=== PATIENT | female | born 1960 | race Caucasian/White ===

== ENCOUNTER 2016-06-08 22:09 | Emergency (ER) | payer BC ==
[~2016-06-08] VITALS: Ht 157.5 cm; Wt 90.7 kg
[2016-06-08 22:13] VITALS: BP 131/71
--- NOTE | 2016-06-08 22:38 | PHYS DOC ---
Past Medical History Past Medical History: Hypertension Past Surgical History: Tonsillectomy Additional Past Surgical Histo: Gastric Bypass Alcohol Use: None Drug Use: None Adult General Chief Complaint Chief Complaint: LACERATION/AVULSION [facility] HPI Patient is a 55 year old female presents emergency department stating that her daughter and her were trying to open a wine bottle when the cork became stuck in bottle. She states that she was trying to use a knife to get the cork out when she stabbed herself in the left fifth finger. Patient is unsure when her last tetanus shot occurred. Patient denies any numbness or tingling into the tip of the finger. She has full range of motion noted of the finger. Review of Systems Review of Systems Constitutional: Denies fever or chills [] Eyes: Denies change in visual acuity, redness, or eye pain [] HENT: Denies nasal congestion or sore throat [] Respiratory: Denies cough or shortness of breath [] Cardiovascular: No additional information not addressed in HPI [] GI: Denies abdominal pain, nausea, vomiting, bloody stools or diarrhea [] : Denies dysuria or hematuria [] Musculoskeletal: Denies back pain or joint pain [] Integument: Denies rash or skin lesions. Patient complains of laceration to the left fifth finger. Neurologic: Denies headache, focal weakness or sensory changes [] Current Medications Current Medications Current Medications Medications (Trade) Dose Ordered Sig/Erik Start Time Stop Time Status Last Admin Dose Admin Diphtheria/ Tetanus/Acell Pertussis (Boostrix) 0.5 ml ONCE ONCE 06/08/16 23:00 06/08/16 23:01 06/08/16 22:43 0.5 ML Gelatin (Gelfoam Size 12-7mm) 1 each 1X ONCE 06/08/16 23:30 06/08/16 23:31 Lidocaine/Sodium Bicarbonate (Buffered Lidocaine 1%) 20 ml 1X ONCE 06/08/16 23:00 06/08/16 23:01 06/08/16 22:41 20 ML Allergies Allergies Allergies Coded Allergies Type Severity Reaction Last Updated Verified Penicillins Allergy Intermediate 06/08/16 Yes Physical Exam Physical Exam Constitutional: Well developed, well nourished, no acute distress, non-toxic appearance. [] HENT: Normocephalic, atraumatic, bilateral external ears normal, oropharynx moist, no oral exudates, nose normal. [] Eyes: PERRLA, EOMI, conjunctiva normal, no discharge. [] Neck: Normal range of motion, no tenderness, supple, no stridor. [] Cardiovascular:Heart rate regular rhythm Lungs & Thorax: No respiratory distress noted Skin: Warm, dry, no erythema, no rash. She was noted to have a 1 cm laceration at the DIP joint. Bleeding is currently controlled at this time. Patient is able to move the finger down and up without any difficulty. Cap refill brisk less than 2 seconds. Back: No tenderness Extremities: No tenderness, no cyanosis, no clubbing, ROM intact, no edema. [] Neurologic: Alert and oriented X 3, normal motor function, normal sensory function, no focal deficits noted. [] Psychologic: Affect normal, judgement normal, mood normal. [] Current Patient Data Vital Signs Vital Signs Date Time Temp Pulse Resp B/P Pulse Ox O2 Delivery O2 Flow Rate FiO2 06/08/16 22:13 97.7 69 16 100 Room Air 97.7 EKG EKG [] Radiology/Procedures Radiology/Procedures [] Course & Med Decision Making Course & Med Decision Making Pertinent Labs and Imaging studies reviewed. (See chart for details) 1% lidocaine was used to provide a digital block. Site was cleaned with Betadine. The area was sutured closed with 4-0 nylon with 3 interrupted sutures placed. She was provided with signs and symptoms to return back to emergency department. Patient was provided with signs and symptoms of infection: Redness, warmth, tenderness or any yellow/greenish transient become from the wound. Patient was instructed to have sutures out in the next 7-10 days. Patient agrees with discharge instructions treatment regimens and follow-up recommendations. She was instructed to keep the area clean and dry and clean the site with soap and water twice a day and apply antibiotic ointment. Dragon Disclaimer Dragon Disclaimer This electronic medical record was generated, in whole or in part, using a voice recognition dictation system. Departure Departure Impression: Primary Impression: Laceration of finger, left Disposition: 01 HOME, SELF-CARE Condition: STABLE Patient Instructions: Laceration Care, Adult, [id number], Sutured Wound Care , [id number] Additional Instructions: Activity as tolerated Tylenol or Ibuprofen for pain and discomfort Ice packs on 20 minutes off 20 minutes several times a day. Elevation as much as possible. Clean the site with soap and water twice a day and apply antibiotic ointment to the area. Watch for signs and symptoms of infection: Redness, warmth, tenderness or any yellow/greenish transient become from the site. If this occur follow-up to primary care physician immediately. Follow-up to primary care physician in the next 7-10 days for suture removal. Return back to emergency prior signs symptoms that become worse. Laceration/Wound Repair Laceration/Wound Repair : Wound Location: upper extremity Wound's Depth, Shape: superficial Wound Length (cm): 1 Wound Explored: clean Betadine Prep?: Yes Anesthesia: 1% Lidocaine Volume Anesthetic (ccs): 4 Wound Debrided: minimal Wound Repaired With: sutures Suture Size/Type: 4:0 Number of Sutures: 3 Progress 4 mL of 1% lidocaine was used to inject the finger for digital block. With Betadine. 3 interrupted 4-0 nylon sutures was placed. Patient continued to have some bleeding noted along the suture line. Patient had Gelfoam placed in the area to help with bleeding. Dressing applied by nursing staff. FRANCES CEJA SHINGLE CARRIER Jun 08, 2016 22:38
[2016-06-08] MEDS ORDERED: DIPHTH,PERTUSS(ACELL),TET TOX 0.5 ML DISP.SYRIN. VAX IM ONE (23:00)
[2016-06-08] MEDS ORDERED: LIDOCAINE 1% / SOD BICARB 8.4% 20 ML VIAL. IJ ONE (23:00)
[2016-06-08] MEDS ORDERED: GELATIN SPONGE SIZE 12-7MM SPONGE. TP ONE (23:30)
== END 2016-06-08 23:13 | disposition home or self-care (01) ==
LOC: ER 22:09
DX: S61.217A Laceration without foreign body of left little finger without damage to nail, initial encounter (principal); I10 Essential (primary) hypertension; Z88.0 Allergy status to penicillin; W22.8XXA Striking against or struck by other objects, initial encounter; Y93.89 Activity, other specified; Y92.89 Other specified places as the place of occurrence of the external cause; Y99.8 Other external cause status
CPT/HCPCS: 12001; 90471; 90715; 99283-25

== ENCOUNTER 2017-09-21 13:09 | Inpatient (IN) | payer BC, MEDICARE, OTHER ==
[~2017-09-21] VITALS: Ht 157.5 cm; Wt 100.2 kg
[2017-09-21 13:44] LABS: BILIRUBIN,URINE MODERATE (NEG); CLARITY,URINE CLOUDY; NITRITE,URINE NEGATIVE (NEG); PROTEIN,URINE 100 mg/dL (NEG-TRACE)
[2017-09-21] MEDS ORDERED: CONTRAST GIVEN. MC PRN (13:45)
[2017-09-21] MEDS ORDERED: IV NORMAL SALINE 1000ML BAG 1,000 ML IV ONE ×4 (13:45→16:15)
[2017-09-21] MEDS ORDERED: ONDANSETRON PF 4 MG/2 ML VIAL. IV ONE (13:45)
[2017-09-21] MEDS ORDERED: IOHEXOL 300 MG/ML 100ML VIAL. IV ONE (13:45)
[2017-09-21] MEDS ORDERED: PANTOPRAZOLE IV PUSH 40 MG VIAL. IVP ONE (13:45)
[2017-09-21] MEDS ORDERED: fentaNYL PF VIAL 100 MCG/2 ML VIAL IV ONE (13:45)
--- NOTE | 2017-09-21 13:46 | PHYS DOC ---
Past Medical History Past Medical History: Hypertension Past Surgical History: Tonsillectomy Additional Past Surgical Histo: Gastric Bypass Alcohol Use: None Drug Use: None Adult General Chief Complaint Chief Complaint: ABDOMINAL PAIN HPI HPI Patient is a 56 year old female with history of hypertension, gastric bypass, who presents today complaining of moderate right sided abdominal pain that has been going on intermittently for the last 3 days. Patient states she also has nausea but no vomiting. Denies diarrhea. She states she has tried taking hydrocodone with no relief. She states she went to the doctor's office today and was sent to the emergency room for workup and IV fluids. PCP Dr. Gilmore Review of Systems Review of Systems Constitutional: Denies fever or chills [] Eyes: Denies change in visual acuity, redness, or eye pain [] HENT: Denies nasal congestion or sore throat [] Respiratory: Denies cough or shortness of breath [] Cardiovascular: No additional information not addressed in HPI [] GI: Reports right sided abdominal pain, with nausea denies vomiting, bloody stools or diarrhea [] : Denies dysuria or hematuria [] Musculoskeletal: Denies back pain or joint pain [] Integument: Denies rash or skin lesions [] Neurologic: Denies headache, focal weakness or sensory changes [] All other systems were reviewed and found to be within normal limits, except as documented in this note. Current Medications Current Medications Current Medications Medications (Trade) Dose Ordered Sig/Erik Start Time Stop Time Status Last Admin Dose Admin Acetaminophen (Tylenol) 1,000 mg 1X ONCE 09/21/17 14:00 09/21/17 14:01 DC 09/21/17 14:34 1,000 MG Clindamycin Phosphate 50 ml @ 100 mls/hr 1X ONCE 09/21/17 15:30 09/21/17 15:59 DC 09/21/17 16:18 100 MLS/HR Fentanyl Citrate (Fentanyl 2ml Vial) 50 mcg 1X ONCE 09/21/17 13:45 09/21/17 13:46 DC 09/21/17 14:34 50 MCG Info (CONTRAST GIVEN -- Rx MONITORING) 1 each PRN DAILY PRN 09/21/17 13:45 09/23/17 13:44 Iohexol (Omnipaque 300 Mg/ml) 75 ml 1X ONCE 09/21/17 13:45 09/21/17 13:46 DC Ondansetron HCl (Zofran) 4 mg 1X ONCE 09/21/17 13:45 09/21/17 13:46 DC 09/21/17 14:34 4 MG Pantoprazole Sodium (PROTONIX VIAL for IV PUSH) 40 mg 1X ONCE 09/21/17 13:45 09/21/17 13:46 DC 09/21/17 13:45 40 MG Sodium Chloride 1,000 ml @ 1,000 mls/hr 1X ONCE 09/21/17 14:15 09/21/17 15:14 DC 09/21/17 16:18 1,000 MLS/HR Vancomycin HCl (Vanco Per Pharmacy) 1 each PRN DAILY PRN 09/21/17 15:30 UNV Vancomycin HCl 2 gm/Sodium Chloride 500 ml @ 250 mls/hr 1X ONCE 09/21/17 15:30 09/21/17 17:29 Allergies Allergies Allergies Coded Allergies Type Severity Reaction Last Updated Verified Penicillins Allergy Intermediate 06/08/16 Yes Physical Exam Physical Exam Constitutional: Well developed, well nourished, no acute distress, non-toxic appearance. [] HENT: Normocephalic, atraumatic, bilateral external ears normal, oropharynx moist, no oral exudates, nose normal. [] Eyes: PERRLA, EOMI, conjunctiva normal, no discharge. [] Neck: Normal range of motion, no tenderness, supple, no stridor. [] Cardiovascular:Heart rate regular rhythm, no murmur [] Lungs & Thorax: Bilateral breath sounds clear to auscultation [] Abdomen: Obese abdomen. Bowel sounds normal, soft, moderate RUQ tenderness with positive Ospina's sign, tenderness to the mid and right lower quadrant. Negative psoas sign, negative obturator sign, negative Rovsing sign, no masses, no pulsatile masses. No rebound tenderness Skin: Warm, dry, no erythema, no rash. [] Back: No tenderness, no CVA tenderness. [] Extremities: No tenderness, no cyanosis, no clubbing, ROM intact, no edema. [] Neurologic: Alert and oriented X 3, normal motor function, normal sensory function, no focal deficits noted. [] Psychologic: Affect normal, judgement normal, mood normal. [] Current Patient Data Vital Signs Vital Signs Date Time Temp Pulse Resp B/P (MAP) Pulse Ox O2 Delivery O2 Flow Rate FiO2 09/21/17 13:20 99.4 122 20 127/79 (95) 96 Room Air 99.4 Lab Values Laboratory Tests Test 09/21/17 13:10 09/21/17 13:30 Urine Collection Type Unknown Urine Color Dk yellow Urine Clarity Cloudy Urine pH 5.0 Urine Specific Buhler >=1.030 Urine Protein 100 mg/dL (NEG-TRACE) Urine Glucose (UA) >=1000 mg/dL (NEG) Urine Ketones (Stick) Trace mg/dL (NEG) Urine Blood Negative (NEG) Urine Nitrite Negative (NEG) Urine Bilirubin Moderate (NEG) Urine Urobilinogen Dipstick 1.0 mg/dL (0.2 mg/dL) Urine Leukocyte Esterase Trace (NEG) Urine RBC Occ /HPF (0-2) Urine WBC 1-4 /HPF (0-4) Urine Squamous Epithelial Cells Many /LPF Urine Bacteria Many /HPF (0-FEW) White Blood Count 23.1 x10^3/uL (4.0-11.0) H Red Blood Count 4.85 x10^6/uL (3.50-5.40) Hemoglobin 14.9 g/dL (12.0-15.5) Hematocrit 43.4 % (36.0-47.0) Mean Corpuscular Volume 89 fL (79-100) Mean Corpuscular Hemoglobin 31 pg (25-35) Mean Corpuscular Hemoglobin Concent 34 g/dL (31-37) Red Cell Distribution Width 13.0 % (11.5-14.5) Platelet Count 185 x10^3/uL (140-400) Neutrophils (%) (Auto) 92 % (31-73) H Lymphocytes (%) (Auto) 2 % (24-48) L Monocytes (%) (Auto) 6 % (0-9) Eosinophils (%) (Auto) 0 % (0-3) Basophils (%) (Auto) 0 % (0-3) Neutrophils # (Auto) 21.3 x10^3uL (1.8-7.7) H Lymphocytes # (Auto) 0.5 x10^3/uL (1.0-4.8) L Monocytes # (Auto) 1.3 x10^3/uL (0.0-1.1) H Eosinophils # (Auto) 0.0 x10^3/uL (0.0-0.7) Basophils # (Auto) 0.0 x10^3/uL (0.0-0.2) Segmented Neutrophils % 85 % (35-66) H Band Neutrophils % 11 % (0-9) H Lymphocytes % 1 % (24-48) L Monocytes % 3 % (0-10) Toxic Granulation Slight Platelet Estimate Adequate (ADEQUATE) Sodium Level 125 mmol/L (136-145) L Potassium Level 4.3 mmol/L (3.5-5.1) Chloride Level 91 mmol/L (98-107) L Carbon Dioxide Level 25 mmol/L (21-32) Anion Gap 9 (6-14) Blood Urea Nitrogen 36 mg/dL (7-20) H Creatinine 1.9 mg/dL (0.6-1.0) H Estimated GFR (Cockcroft-Gault) 27.3 BUN/Creatinine Ratio 19 (6-20) Glucose Level 422 mg/dL (70-99) H Calcium Level 9.9 mg/dL (8.5-10.1) Total Bilirubin 2.9 mg/dL (0.2-1.0) H Aspartate Amino Transferase (AST) 21 U/L (15-37) Alanine Aminotransferase (ALT) 33 U/L (14-59) Alkaline Phosphatase 181 U/L (46-116) H Total Protein 7.6 g/dL (6.4-8.2) Albumin 3.0 g/dL (3.4-5.0) L Albumin/Globulin Ratio 0.7 (1.0-1.7) L Lipase 95 U/L (73-393) Ethyl Alcohol Level < 10 mg/dL (0-10) Laboratory Tests 09/21/17 13:30 Laboratory Tests 09/21/17 13:30 EKG EKG [] Radiology/Procedures Radiology/Procedures []PROCEDURE: CT ABD PELV W/ IV CONTRST ONLY CT of the abdomen and pelvis with contrast, 09/21/2017: HISTORY: Lower abdominal pain with nausea Multidetector CT imaging was performed following an IV bolus injection of iodinated contrast material. No oral contrast material was administered for this study. The gallbladder is distended. It contains a small amount of mildly radiopaque material. There is extensive edematous thickening of its tidwell. There is moderate streaky pericholecystic edema. The appearance is that of acute cholecystitis. No hepatic abnormality is seen. The pancreas is unremarkable. The spleen is at the upper limits of normal in size. There is bilateral renal cortical scarring. The kidneys show no evidence of obstruction. No adrenal abnormality is detected. There is minimal aortoiliac calcific plaquing. No abdominal or pelvic adenopathy is seen. Diffuse bladder wall thickening is probably related to its collapsed state. Cystitis cannot be excluded. The bowel loops are not dilated. The appendix is unremarkable. There are sutures related to the stomach and proximal spinal bowel compatible with the given history of gastric bypass surgery. No free air or free fluid is evident in the abdomen or pelvis. IMPRESSION: 1. Inflamed gallbladder containing radiopaque material with extensive pericholecystic edema compatible with acute cholecystitis. 2. Diffuse bladder wall thickening. 3. Changes of previous gastric bypass surgery. PQRS Compliance Statement: One or more of the following individualized dose reduction techniques were utilized for this examination: 1. Automated exposure control 2. Adjustment of the mA and/or kV according to patient size 3. Use of iterative reconstruction technique Electronically signed by: Kierra Martin MD (09/21/2017 2:43 PM) [facility] DICTATED and SIGNED BY: KIERRA MARTIN MD DATE: 09/21/17 1430 Course & Med Decision Making Course & Med Decision Making Pertinent Labs and Imaging studies reviewed. (See chart for details) This is a 56-year-old female patient presenting to the ED today with a right sided abdominal pain that has been going on for 3 days. Also complaining of nausea. Vitals on arrival to the ED temperature was 99.4, heart rate 122, respiration 20 room air, O2 sats 96% on room air, blood pressure 127/96. CBC with a WBC of 23.1 and a left shift, sodium 125, creatinine 1.9, BUN 36, glucose 422, anion gap is normal. CT of the abd and pelvic was noted for cholecystitis. Patient's workup is heading toward sepsis though we are still waiting for the rest of the lab work. Spoke with Dr. Huang who accepted patient for general surgery. 15:[address] Meeks who accepted patient for admission. Routine consult placed for nephrology due to the hyponatremia Abdirahman Disclaimer Abdirahman Disclaimer This electronic medical record was generated, in whole or in part, using a voice recognition dictation system. Departure Departure Impression: Primary Impression: Cholecystitis Additional Impressions: Sepsis Hyponatremia Disposition: 09 ADMITTED INPATIENT Condition: STABLE Referrals: JIM GILMORE (PCP) Problem Qualifiers Additional Impressions: Sepsis Sepsis type: sepsis due to unspecified organism Qualified Codes: A41.9 - Sepsis, unspecified organism MARISELA OROZCO TIE LOADER Sep 21, 2017 13:46
[2017-09-21 13:50] LABS: BASO % 0 % (0-3); EOS % 0 % (0-3); HEMATOCRIT 43.4 % (36.0-47.0); HEMOGLOBIN 14.9 g/dL (12.0-15.5); LYMPH # 0.5 x10^3/uL (1.0-4.8); LYMPH % 2 % (24-48); MEAN CORPUSCULAR HEMOGLOBIN 31 pg (25-35); MEAN CORPUSCULAR HGB CONC 34 g/dL (31-37); MEAN CORPUSCULAR VOLUME 89 fL (79-100); MONO # 1.3 x10^3/uL (0.0-1.1); MONO % 6 % (0-9); NEUT # 21.3 x10^3uL (1.8-7.7); NEUT % 92 % (31-73); PLATELET COUNT 185 x10^3/uL (140-400); RED BLOOD COUNT 4.85 x10^6/uL (3.50-5.40); WHITE BLOOD COUNT 23.1 x10^3/uL (4.0-11.0)
[2017-09-21 13:57] LABS: COLOR,URINE DK YELLOW
[2017-09-21 13:59] LABS: BACTERIA,URINE MANY /HPF (0-FEW); RBC,URINE OCC /HPF (0-2)
[2017-09-21 14:00] LABS: CALCIUM 9.9 mg/dL (8.5-10.1); CREATININE 1.9 mg/dL (0.6-1.0); GFR 27.3; POTASSIUM 4.3 mmol/L (3.5-5.1)
[2017-09-21 14:00] LABS: SQUAMOUS EPITHELIAL CELL,UR MANY /LPF
[2017-09-21] MEDS ORDERED: ACETAMINOPHEN 500 MG TABLET PO ONE (14:00)
[2017-09-21 14:06] LABS: ALBUMIN/GLOBULIN RATIO 0.7 (1.0-1.7); TOTAL BILIRUBIN 2.9 mg/dL (0.2-1.0); TOTAL PROTEIN 7.6 g/dL (6.4-8.2)
--- NOTE | 2017-09-21 14:46 | RAD ---
CT of the abdomen and pelvis with contrast, 09/21/2017: HISTORY: Lower abdominal pain with nausea Multidetector CT imaging was performed following an IV bolus injection of iodinated contrast material. No oral contrast material was administered for this study. The gallbladder is distended. It contains a small amount of mildly radiopaque material. There is extensive edematous thickening of its tidwell. There is moderate streaky pericholecystic edema. The appearance is that of acute cholecystitis. No hepatic abnormality is seen. The pancreas is unremarkable. The spleen is at the upper limits of normal in size. There is bilateral renal cortical scarring. The kidneys show no evidence of obstruction. No adrenal abnormality is detected. There is minimal aortoiliac calcific plaquing. No abdominal or pelvic adenopathy is seen. Diffuse bladder wall thickening is probably related to its collapsed state. Cystitis cannot be excluded. The bowel loops are not dilated. The appendix is unremarkable. There are sutures related to the stomach and proximal spinal bowel compatible with the given history of gastric bypass surgery. No free air or free fluid is evident in the abdomen or pelvis. IMPRESSION: 1. Inflamed gallbladder containing radiopaque material with extensive pericholecystic edema compatible with acute cholecystitis. 2. Diffuse bladder wall thickening. 3. Changes of previous gastric bypass surgery. PQRS Compliance Statement: One or more of the following individualized dose reduction techniques were utilized for this examination: 1. Automated exposure control 2. Adjustment of the mA and/or kV according to patient size 3. Use of iterative reconstruction technique Electronically signed by: Freddie Martin MD (09/21/2017 2:43 PM) [facility]
[2017-09-21 14:49] LABS: % BANDS 11 % (0-9); % LYMPHS 1 % (24-48); % MONOS 3 % (0-10); % SEGS 85 % (35-66)
[2017-09-21 14:51] LABS: PLT ESTIMATE ADEQUATE (ADEQUATE)
[2017-09-21 14:55] LABS: TOXIC GRANULATION SLIGHT
[2017-09-21] MEDS ORDERED: VANCOMYCIN 2 GM in IV NORMAL SALINE 500ML BAG 500 ML IV ONE (15:30)
[2017-09-21] MEDS ORDERED: CLINDAMYCIN 900MG PREMIX 50 ML IV ONE (15:30)
[2017-09-21] MEDS ORDERED: ONDANSETRON PF 4 MG/2 ML VIAL. IV PRN (16:15)
[2017-09-21] MEDS ORDERED: ACETAMINOPHEN 325 MG TABLET. PO PRN (16:15)
[2017-09-21] MEDS: VANCOMYCIN PER PHARMACY MC PRN (16:37)
[2017-09-21] MEDS: fentaNYL PF VIAL 100 MCG/2 ML VIAL IV PRN ×2 (16:51→21:22)
[2017-09-21 17:25] VITALS: BP 110/76
[2017-09-21] MEDS ORDERED: INSULIN LISPRO 300 UNITS/3 ML INSULN.PEN. SQ ONE (17:30)
[2017-09-21] MEDS ORDERED: DEXTROSE 50% 25 GM / 50ML DISP.SYRIN. IV PRN (17:30)
--- NOTE | 2017-09-21 17:40 | PDOC1 ---
History and Physical Date of Admission Date of Admission DATE: 09/21/17 TIME: 17:37 History of Present Illness History of Present Illness Ms. Etienne is a 56 year old female with history of hypertension, gastric bypass, who presents today complaining of moderate right sided abdominal pain that has been going on intermittently for the last 3 days. Patient states she also has nausea but no vomiting. Denies diarrhea. She states she has tried taking hydrocodone with no relief. She states she went to the doctor's office today and was sent to the emergency room for workup and IV fluids. she is s/p gastric bypass at [facility] and has lost 110 lbs, was Dm2 w. 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 [employer] Past Medical History Cardiovascular: No pertinent hx Infectious disease: No pertinent hx ENT: No pertinent hx Endocrine: Diabetes Past Surgical History Past Surgical History: Other (gastric bypass) Family History Family History: Adopted Social History Smoke: No ALCOHOL: none Drugs: None Current Problem List Problem List Problems Medical Problems: (1) Cholecystitis Status: Acute (2) Hyponatremia Status: Acute (3) Sepsis Status: Acute Current Medications Current Medications Current Medications Fentanyl Citrate (Fentanyl 2ml Vial) 50 mcg 1X ONCE IV Last administered on 12/29at 14:34; Start 09/21/17 at 13:45; Stop 09/21/17 at 13:46; Status DC Pantoprazole Sodium (PROTONIX VIAL for IV PUSH) 40 mg 1X ONCE IVP Last administered on 09/21/17at 13:45; Start 09/21/17 at 13:45; Stop 09/21/17 at 13:46 ; Status DC Ondansetron HCl (Zofran) 4 mg 1X ONCE IV Last administered on 09/21/17at 14:34 ; Start 09/21/17 at 13:45; Stop 09/21/17 at 13:46; Status DC Sodium Chloride 1,000 ml @ 1,000 mls/hr 1X ONCE IV Last administered on at 14:33; Start 09/21/17 at 13:45; Stop 09/21/17 at 14:44; Status DC Iohexol (Omnipaque 300 Mg/ml) 75 ml 1X ONCE IV Last administered on 09/21/17at 13:45; Start 09/21/17 at 13:45; Stop 09/21/17 at 13:46; Status DC Info (CONTRAST GIVEN -- Rx MONITORING) 1 each PRN DAILY PRN MC SEE COMMENTS; Start 09/21/17 at 13:45; Stop 09/23/17 at 13:44 Sodium Chloride 1,000 ml @ 1,000 mls/hr 1X ONCE IV Last administered on at 14:33; Start 09/21/17 at 14:00; Stop 09/21/17 at 14:59; Status DC Acetaminophen (Tylenol) 1,000 mg 1X ONCE PO Last administered on 09/21/17at 14: 34; Start 09/21/17 at 14:00; Stop 09/21/17 at 14:01; Status DC Sodium Chloride 1,000 ml @ 1,000 mls/hr 1X ONCE IV Last administered on at 16:18; Start 09/21/17 at 14:15; Stop 09/21/17 at 15:14; Status DC Clindamycin Phosphate 50 ml @ 100 mls/hr Q8HRS IV ; Start 09/21/17 at 22:00 Clindamycin Phosphate 50 ml @ 100 mls/hr 1X ONCE IV Last administered on 09/21at 16:18; Start 09/21/17 at 15:30; Stop 09/21/17 at 15:59; Status DC Vancomycin HCl (Vanco Per Pharmacy) 1 each PRN DAILY PRN MC SEE COMMENTS Last administered on 09/21/17at 16:37; Start 09/21/17 at 15:30 Vancomycin HCl 2 gm/Sodium Chloride 500 ml @ 250 mls/hr 1X ONCE IV Last administered on 09/21/17at 17:21; Start 09/21/17 at 15:30; Stop 09/21/17 at 17:29 Ondansetron HCl (Zofran) 4 mg PRN Q8HRS PRN IV NAUSEA/VOMITING; Start 09/21/17 at 16:15; Stop 09/22/17 at 16:14 Fentanyl Citrate (Fentanyl 2ml Vial) 50 mcg PRN Q2HR PRN IV PAIN Last administered on 09/21/17at 16:51; Start 09/21/17 at 16:15; Stop 09/22/17 at 16:14 Acetaminophen (Tylenol) 650 mg PRN Q4HRS PRN PO FEVER; Start 09/21/17 at 16:15 ; Stop 09/22/17 at 16:14 Sodium Chloride 1,000 ml @ 125 mls/hr 1X ONCE IV ; Start 09/21/17 at 16:15; Stop 09/22/17 at 00:14 Vancomycin HCl 1.5 gm/Sodium Chloride 500 ml @ 250 mls/hr Q24H IV ; Start 09/22 at 18:00 Vancomycin HCl (Vancomycin Trough Level) 1 each 1X ONCE MC ; Start 09/23/17 at 17:30; Stop 09/23/17 at 17:31 Insulin Human Lispro (HumaLOG) 0-9 UNITS TIDWMEALS SQ ; Start 09/22/17 at 08:00 ; Status UNV Dextrose (Dextrose 50%-Water Syringe) 12.5 gm PRN Q15MIN PRN IV SEE COMMENTS; Start 09/21/17 at 17:30; Status UNV Insulin Glargine (Lantus) 20 units QHS SQ ; Start 09/21/17 at 21:00; Status UNV Insulin Human Lispro (HumaLOG) 10 units TIDWMEALS SQ ; Start 09/22/17 at 08:00; Status UNV Allergies Allergies: Coded Allergies: No Known Drug Allergies (Unverified , 09/21/17) ROS General: YES: Chills, Night Sweats, Fatigue PSYCHOLOGICAL ROS: No: Anxiety, Behavioral Disorder, Concentration difficultie , Decreased libido, Depression, Disorientation, Hallucinations, Hostility, Irritablity, Memory difficulties, Mood Swings, Obsessive thoughts, Physical abuse, Sexual abuse, Sleep disturbances, Suicidal ideation, Other Eyes: No Blurry vision, No Decreased vision, No Double vision, No Dry eyes, No Excessive tearing, No Eye Pain, No Itchy Eyes, No Loss of vision, No Photophobia , No Scotomata, No Uses contacts, No Uses glasses, No Other HEENT: No: Heacaches, Visual Changes, Hearing change, Nasal congestion, Nasal discharge, Oral lesions, Sinus pain, Sore Throat, Epistaxis, Sneezing, Snoring, Tinnitus, Vertigo, Vocal changes, Other ENDOCRINE: No: Breast Changes, Galactorrhea, Hair Pattern Changes, Hot Flashes , Malaise/lethargy, Mood Swings, Palpitations, Polydipsia/polyuria, Skin Changes , Temperature Intolerance, Unexpected Weight Changes, Other Respiratory: No: Cough, Hemoptysis, Orthopnea, Pleuritic Pain, Shortness of breath, SOB with excertion, Sputum Changes, Stridor, Tachypnea, Wheezing, Other Gastrointestinal: Yes Nausea, Yes Abdominal Pain, Yes Diarrhea, Yes Other; No Vomiting, No Constipation, No Melena, No Hematochezia Genitourinary: No Dysuria, No Frequency, No Incontinence, No Hematuria, No Retention, No Discharge, No Urgency, No Pain, No Flank Pain, No Other, No , No , No , No , No , No , No Musculoskeletal: Yes Joint Pain, Yes Joint Stiffness Neurological: No Behavorial Changes, No Bowel/Bladder ControlChng, No Confusion , No Dizziness, No Gait Disturbance, No Headaches, No Impaired Coord/balance, No Memory Loss, No Numbness/Tingling, No Seizures, No Speech Problems, No Tremors, No Visual Changes, No Weakness, No Other Skin: Yes Dry Skin; No Eczema, No Hair Changes, No Lumps, No Mole Changes, No Mottling, No Nail Changes, No Pruritus, No Rash, No Skin Lesion Changes, No Other, No Acne Vitals Vitals Vital Signs Date Time Temp Pulse Resp B/P (MAP) Pulse Ox O2 Delivery O2 Flow Rate FiO2 09/21/17 13:20 99.4 122 20 127/79 (95) 96 Room Air 99.4 Labs Labs Laboratory Tests Test 09/21/17 13:10 09/21/17 13:30 09/21/17 16:55 Urine Collection Type Unknown Urine Color Dk yellow Urine Clarity Cloudy Urine pH 5.0 Urine Specific [place] >=1.030 Urine Protein 100 mg/dL (NEG-TRACE) Urine Glucose (UA) >=1000 mg/dL (NEG) Urine Ketones (Stick) Trace mg/dL (NEG) Urine Blood Negative (NEG) Urine Nitrite Negative (NEG) Urine Bilirubin Moderate (NEG) Urine Urobilinogen Dipstick 1.0 mg/dL (0.2 mg/dL) Urine Leukocyte Esterase Trace (NEG) Urine RBC Occ /HPF (0-2) Urine WBC 1-4 /HPF (0-4) Urine Squamous Epithelial Cells Many /LPF Urine Bacteria Many /HPF (0-FEW) White Blood Count 23.1 x10^3/uL (4.0-11.0) Red Blood Count 4.85 x10^6/uL (3.50-5.40) Hemoglobin 14.9 g/dL (12.0-15.5) Hematocrit 43.4 % (36.0-47.0) Mean Corpuscular Volume 89 fL (79-100) Mean Corpuscular Hemoglobin 31 pg (25-35) Mean Corpuscular Hemoglobin Concent 34 g/dL (31-37) Red Cell Distribution Width 13.0 % (11.5-14.5) Platelet Count 185 x10^3/uL (140-400) Neutrophils (%) (Auto) 92 % (31-73) Lymphocytes (%) (Auto) 2 % (24-48) Monocytes (%) (Auto) 6 % (0-9) Eosinophils (%) (Auto) 0 % (0-3) Basophils (%) (Auto) 0 % (0-3) Neutrophils # (Auto) 21.3 x10^3uL (1.8-7.7) Lymphocytes # (Auto) 0.5 x10^3/uL (1.0-4.8) Monocytes # (Auto) 1.3 x10^3/uL (0.0-1.1) Eosinophils # (Auto) 0.0 x10^3/uL (0.0-0.7) Basophils # (Auto) 0.0 x10^3/uL (0.0-0.2) Segmented Neutrophils % 85 % (35-66) Band Neutrophils % 11 % (0-9) Lymphocytes % 1 % (24-48) Monocytes % 3 % (0-10) Toxic Granulation Slight Platelet Estimate Adequate (ADEQUATE) Sodium Level 125 mmol/L (136-145) Potassium Level 4.3 mmol/L (3.5-5.1) Chloride Level 91 mmol/L (98-107) Carbon Dioxide Level 25 mmol/L (21-32) Anion Gap 9 (6-14) Blood Urea Nitrogen 36 mg/dL (7-20) Creatinine 1.9 mg/dL (0.6-1.0) Estimated GFR (Cockcroft-Gault) 27.3 BUN/Creatinine Ratio 19 (6-20) Glucose Level 422 mg/dL (70-99) Calcium Level 9.9 mg/dL (8.5-10.1) Total Bilirubin 2.9 mg/dL (0.2-1.0) Aspartate Amino Transf (AST/SGOT) 21 U/L (15-37) Alanine Aminotransferase (ALT/SGPT) 33 U/L (14-59) Alkaline Phosphatase 181 U/L (46-116) Total Protein 7.6 g/dL (6.4-8.2) Albumin 3.0 g/dL (3.4-5.0) Albumin/Globulin Ratio 0.7 (1.0-1.7) Lipase 95 U/L (73-393) Ethyl Alcohol Level < 10 mg/dL (0-10) Lactic Acid Level 1.5 mmol/L (0.4-2.0) Laboratory Tests Test 09/21/17 13:10 09/21/17 13:30 09/21/17 16:55 Urine Collection Type Unknown Urine Color Dk yellow Urine Clarity Cloudy Urine pH 5.0 Urine Specific [place] >=1.030 Urine Protein 100 mg/dL (NEG-TRACE) Urine Glucose (UA) >=1000 mg/dL (NEG) Urine Ketones (Stick) Trace mg/dL (NEG) Urine Blood Negative (NEG) Urine Nitrite Negative (NEG) Urine Bilirubin Moderate (NEG) Urine Urobilinogen Dipstick 1.0 mg/dL (0.2 mg/dL) Urine Leukocyte Esterase Trace (NEG) Urine RBC Occ /HPF (0-2) Urine WBC 1-4 /HPF (0-4) Urine Squamous Epithelial Cells Many /LPF Urine Bacteria Many /HPF (0-FEW) White Blood Count 23.1 x10^3/uL (4.0-11.0) Red Blood Count 4.85 x10^6/uL (3.50-5.40) Hemoglobin 14.9 g/dL (12.0-15.5) Hematocrit 43.4 % (36.0-47.0) Mean Corpuscular Volume 89 fL (79-100) Mean Corpuscular Hemoglobin 31 pg (25-35) Mean Corpuscular Hemoglobin Concent 34 g/dL (31-37) Red Cell Distribution Width 13.0 % (11.5-14.5) Platelet Count 185 x10^3/uL (140-400) Neutrophils (%) (Auto) 92 % (31-73) Lymphocytes (%) (Auto) 2 % (24-48) Monocytes (%) (Auto) 6 % (0-9) Eosinophils (%) (Auto) 0 % (0-3) Basophils (%) (Auto) 0 % (0-3) Neutrophils # (Auto) 21.3 x10^3uL (1.8-7.7) Lymphocytes # (Auto) 0.5 x10^3/uL (1.0-4.8) Monocytes # (Auto) 1.3 x10^3/uL (0.0-1.1) Eosinophils # (Auto) 0.0 x10^3/uL (0.0-0.7) Basophils # (Auto) 0.0 x10^3/uL (0.0-0.2) Segmented Neutrophils % 85 % (35-66) Band Neutrophils % 11 % (0-9) Lymphocytes % 1 % (24-48) Monocytes % 3 % (0-10) Toxic Granulation Slight Platelet Estimate Adequate (ADEQUATE) Sodium Level 125 mmol/L (136-145) Potassium Level 4.3 mmol/L (3.5-5.1) Chloride Level 91 mmol/L (98-107) Carbon Dioxide Level 25 mmol/L (21-32) Anion Gap 9 (6-14) Blood Urea Nitrogen 36 mg/dL (7-20) Creatinine 1.9 mg/dL (0.6-1.0) Estimated GFR (Cockcroft-Gault) 27.3 BUN/Creatinine Ratio 19 (6-20) Glucose Level 422 mg/dL (70-99) Calcium Level 9.9 mg/dL (8.5-10.1) Total Bilirubin 2.9 mg/dL (0.2-1.0) Aspartate Amino Transf (AST/SGOT) 21 U/L (15-37) Alanine Aminotransferase (ALT/SGPT) 33 U/L (14-59) Alkaline Phosphatase 181 U/L (46-116) Total Protein 7.6 g/dL (6.4-8.2) Albumin 3.0 g/dL (3.4-5.0) Albumin/Globulin Ratio 0.7 (1.0-1.7) Lipase 95 U/L (73-393) Ethyl Alcohol Level < 10 mg/dL (0-10) Lactic Acid Level 1.5 mmol/L (0.4-2.0) VTE Prophylaxis Ordered VTE Prophylaxis Devices: Yes VTE Pharmacological Prophylaxi: No Assessment/Plan Assessment/Plan Acute abd pain cholangitis, acute cholecystis sepsis obesity BMI 38 vasomotor nephropathy moderate malnutrition hyperbili, admit LANETTE BOLDEN MD Sep 21, 2017 17:40
[2017-09-21] MEDS ORDERED: PIP/TAZO PER PHARMACY MC PRN (17:45)
[2017-09-21] MEDS: INSULIN LISPRO 300 UNITS/3 ML INSULN.PEN. SQ SCH (18:05)
[2017-09-21] MEDS ORDERED: SPIR50TA4 PO (18:31)
[2017-09-21] MEDS ORDERED: LEXAPRO20 MG PO (18:31)
[2017-09-21] MEDS ORDERED: CARV3.122 PO (18:31)
[2017-09-21] MEDS ORDERED: MULT1TAB52 PO (18:31)
[2017-09-21 19:00] VITALS: BP 105/70
[2017-09-21] MEDS: INSULIN GLARGINE 300 UNITS/3 ML INSULN.PEN. SQ SCH (21:00)
[2017-09-21] MEDS: PIPERACILLIN/TAZOBACTAM 2.25 GM in IV NORMAL SALINE 50ML 50 ML IV SCH (21:21)
[2017-09-21] MEDS ORDERED: CLINDAMYCIN 900MG PREMIX 50 ML IV SCH (22:00)
[2017-09-21 23:00] VITALS: BP 106/62
[2017-09-22] VITALS (12 sets, daily range): BP systolic 96–124; BP diastolic 51–72
[2017-09-22] MEDS: PIPERACILLIN/TAZOBACTAM 2.25 GM in IV NORMAL SALINE 50ML 50 ML IV SCH ×4 (01:06→17:30)
[2017-09-22] MEDS: fentaNYL PF VIAL 100 MCG/2 ML VIAL IV PRN ×3 (04:00→15:47)
[2017-09-22 05:23] LABS: BASO % 0 % (0-3); EOS % 0 % (0-3); HEMATOCRIT 35.5 % (36.0-47.0); HEMOGLOBIN 12.2 g/dL (12.0-15.5); LYMPH # 0.4 x10^3/uL (1.0-4.8); LYMPH % 3 % (24-48); MEAN CORPUSCULAR HEMOGLOBIN 31 pg (25-35); MEAN CORPUSCULAR HGB CONC 34 g/dL (31-37); MEAN CORPUSCULAR VOLUME 89 fL (79-100); MONO # 1.1 x10^3/uL (0.0-1.1); MONO % 8 % (0-9); NEUT # 12.5 x10^3uL (1.8-7.7); NEUT % 90 % (31-73); PLATELET COUNT 128 x10^3/uL (140-400); RED BLOOD COUNT 3.99 x10^6/uL (3.50-5.40); RED CELL DISTRIBUTION WIDTH 13.2 % (11.5-14.5)
[2017-09-22 05:48] LABS: ALBUMIN 2.1 g/dL (3.4-5.0); ALBUMIN/GLOBULIN RATIO 0.6 (1.0-1.7); CALCIUM 8.5 mg/dL (8.5-10.1); CREATININE 1.1 mg/dL (0.6-1.0); GFR 51.4; POTASSIUM 3.7 mmol/L (3.5-5.1); TOTAL BILIRUBIN 1.5 mg/dL (0.2-1.0); TOTAL PROTEIN 5.8 g/dL (6.4-8.2)
[2017-09-22] MEDS: INSULIN LISPRO 300 UNITS/3 ML INSULN.PEN. SQ SCH ×6 (07:49→18:22)
[2017-09-22] MEDS ORDERED: IV RINGERS,LACTATED 1000ML 1,000 ML IV SCH (09:05)
[2017-09-22] MEDS ORDERED: MORPHINE SULFATE 2 MG/ML DISP.SYRIN. IV PRN (09:15)
[2017-09-22] MEDS ORDERED: LIDOCAINE 1% PF 2 ML VIAL. ID PRN (09:15)
[2017-09-22] MEDS ORDERED: PROCHLORPERAZINE 10 MG/2 ML VIAL. IV PRN (09:15)
[2017-09-22] MEDS ORDERED: fentaNYL PF VIAL 100 MCG/2 ML VIAL IV PRN ×2 (09:15)
[2017-09-22] MEDS ORDERED: ONDANSETRON PF 4 MG/2 ML VIAL. IV PRN ×3 (09:15→16:15)
[2017-09-22] MEDS ORDERED: MIDAZOLAM HCL/PF 2 MG/2 ML VIAL. ONE (09:29)
[2017-09-22] MEDS ORDERED: NEOSTIGMINE METHYLSULFATE 5 MG/5 ML SYRINGE. ONE (09:29)
[2017-09-22] MEDS ORDERED: SEVOFLURANE > 120 MINUTES. IH ONE (09:29)
[2017-09-22] MEDS ORDERED: GLYCOPYRROLATE 1 MG/5 ML VIAL. ONE (09:29)
[2017-09-22] MEDS ORDERED: ROCURONIUM 50 MG/5 ML VIAL. ONE (09:29)
[2017-09-22] MEDS ORDERED: fentaNYL PF VIAL 100 MCG/2 ML VIAL ONE ×2 (09:29→11:35)
[2017-09-22] MEDS ORDERED: KETOROLAC 30 MG/ML INJ FOR OR. INJ ONE ×2 (09:30)
[2017-09-22] MEDS ORDERED: LIDOCAINE 2% PF Vial for OR 5 ML VIAL. ONE (09:30)
[2017-09-22] MEDS ORDERED: ONDANSETRON PF 4 MG/2 ML VIAL. ONE (09:30)
[2017-09-22] MEDS ORDERED: PROPOFOL 20 ML IV ONE (09:30)
[2017-09-22] MEDS ORDERED: DEXAMETHASONE SOD PHOS 20 MG/5 ML VIAL. ONE (09:30)
[2017-09-22] MEDS ORDERED: BUPIVACAINE-EPI 0.5%-1:200000 50 ML VIAL. ONE (09:52)
[2017-09-22] MEDS ORDERED: SURGICEL HEMOSTAT 4X8 EACH. ONE (09:53)
[2017-09-22] MEDS ORDERED: IOHEXOL 300 MG/ML 100ML VIAL. ONE (09:53)
--- NOTE | 2017-09-22 10:44 | PDOC2 ---
CONSULT Date of Consult Date of Consult DATE: 09/22/17 TIME: 10:39 History of Present Illness Reason for Visit: The patient is a 56 year old female who reported to the ER with severe abdominal pain starting 4 days ago. She reports pain on the right abdomen with nausea and vomiting. She tried to "tough it out" but eventually came to the ER when the pain continued to worsen. Past Medical History Cardiovascular: No pertinent hx Infectious disease: No pertinent hx ENT: No pertinent hx Endocrine: Diabetes Past Surgical History Past Surgical History: Other (gastric bypass) Family History Family History: Adopted Social History No ALCOHOL: none Drugs: None Current Problem List Problem List Problems Medical Problems: (1) Cholecystitis Status: Acute (2) Hyponatremia Status: Acute (3) Sepsis Status: Acute Current Medications Current Medications Current Medications Fentanyl Citrate (Fentanyl 2ml Vial) 50 mcg 1X ONCE IV Last administered on 12/29at 14:34; Start 09/21/17 at 13:45; Stop 09/21/17 at 13:46; Status DC Pantoprazole Sodium (PROTONIX VIAL for IV PUSH) 40 mg 1X ONCE IVP Last administered on 09/21/17at 13:45; Start 09/21/17 at 13:45; Stop 09/21/17 at 13:46 ; Status DC Ondansetron HCl (Zofran) 4 mg 1X ONCE IV Last administered on 09/21/17at 14:34 ; Start 09/21/17 at 13:45; Stop 09/21/17 at 13:46; Status DC Sodium Chloride 1,000 ml @ 1,000 mls/hr 1X ONCE IV Last administered on at 14:33; Start 09/21/17 at 13:45; Stop 09/21/17 at 14:44; Status DC Iohexol (Omnipaque 300 Mg/ml) 75 ml 1X ONCE IV Last administered on 09/21/17at 13:45; Start 09/21/17 at 13:45; Stop 09/21/17 at 13:46; Status DC Info (CONTRAST GIVEN -- Rx MONITORING) 1 each PRN DAILY PRN MC SEE COMMENTS; Start 09/21/17 at 13:45; Stop 09/23/17 at 13:44 Sodium Chloride 1,000 ml @ 1,000 mls/hr 1X ONCE IV Last administered on at 14:33; Start 09/21/17 at 14:00; Stop 09/21/17 at 14:59; Status DC Acetaminophen (Tylenol) 1,000 mg 1X ONCE PO Last administered on 09/21/17at 14: 34; Start 09/21/17 at 14:00; Stop 09/21/17 at 14:01; Status DC Sodium Chloride 1,000 ml @ 1,000 mls/hr 1X ONCE IV Last administered on at 16:18; Start 09/21/17 at 14:15; Stop 09/21/17 at 15:14; Status DC Clindamycin Phosphate 50 ml @ 100 mls/hr Q8HRS IV ; Start 09/21/17 at 22:00; Stop 09/21/17 at 22:00; Status DC Clindamycin Phosphate 50 ml @ 100 mls/hr 1X ONCE IV Last administered on 09/21at 16:18; Start 09/21/17 at 15:30; Stop 09/21/17 at 15:59; Status DC Vancomycin HCl (Vanco Per Pharmacy) 1 each PRN DAILY PRN MC SEE COMMENTS Last administered on 09/21/17at 16:37; Start 09/21/17 at 15:30 Vancomycin HCl 2 gm/Sodium Chloride 500 ml @ 250 mls/hr 1X ONCE IV Last administered on 09/21/17at 17:21; Start 09/21/17 at 15:30; Stop 09/21/17 at 17:29 ; Status DC Ondansetron HCl (Zofran) 4 mg PRN Q8HRS PRN IV NAUSEA/VOMITING; Start 09/21/17 at 16:15; Stop 09/22/17 at 16:14 Fentanyl Citrate (Fentanyl 2ml Vial) 50 mcg PRN Q2HR PRN IV PAIN Last administered on 09/22/17at 04:00; Start 09/21/17 at 16:15; Stop 09/22/17 at 16:14 Acetaminophen (Tylenol) 650 mg PRN Q4HRS PRN PO FEVER; Start 09/21/17 at 16:15 ; Stop 09/22/17 at 16:14 Sodium Chloride 1,000 ml @ 125 mls/hr 1X ONCE IV Last administered on at 17:33; Start 09/21/17 at 16:15; Stop 09/22/17 at 00:14; Status DC Vancomycin HCl 1.5 gm/Sodium Chloride 500 ml @ 250 mls/hr Q24H IV ; Start 09/22 at 18:00 Vancomycin HCl (Vancomycin Trough Level) 1 each 1X ONCE MC ; Start 09/23/17 at 17:30; Stop 09/23/17 at 17:31 Insulin Human Lispro (HumaLOG) 0-9 UNITS TIDWMEALS SQ Last administered on 09/21at 18:05; Start 09/21/17 at 18:00 Dextrose (Dextrose 50%-Water Syringe) 12.5 gm PRN Q15MIN PRN IV SEE COMMENTS; Start 09/21/17 at 17:30 Insulin Glargine (Lantus) 20 units QHS SQ ; Start 09/21/17 at 21:00 Insulin Human Lispro (HumaLOG) 10 units TIDWMEALS SQ ; Start 09/22/17 at 08:00 Insulin Human Lispro (HumaLOG) 20 units 1X ONCE SQ ; Start 09/21/17 at 17:30; Stop 09/21/17 at 17:31; Status UNV Piperacillin Sod/ Tazobactam Sod (Zosyn Per Pharmacy) 1 each PRN DAILY PRN MC SEE COMMENTS; Start 09/21/17 at 17:45 Piperacillin Sod/ Tazobactam Sod 2.25 gm/Sodium Chloride 50 ml @ 100 mls/hr Q6HRS IV Last administered on 09/22/17at 06:04; Start 09/21/17 at 19:00 Ondansetron HCl (Zofran) 4 mg PRN Q6HRS PRN IV NAUSEA/VOMITING; Start 09/22/17 at 09:15; Stop 09/23/17 at 09:14 Fentanyl Citrate (Fentanyl 2ml Vial) 25 mcg PRN Q5MIN PRN IV MILD PAIN; Start 09/22/17 at 09:15; Stop 09/23/17 at 09:14 Fentanyl Citrate (Fentanyl 2ml Vial) 50 mcg PRN Q5MIN PRN IV MODERATE TO SEVERE PAIN; Start 09/22/17 at 09:15; Stop 09/23/17 at 09:14 Morphine Sulfate (Morphine Sulfate) 1 mg PRN Q10MIN PRN IV SEVERE PAIN; Start 09/22/17 at 09:15; Stop 09/23/17 at 09:14 Ringer's Solution 1,000 ml @ 30 mls/hr Q24H IV ; Start 09/22/17 at 09:05; Stop 09/22/17 at 21:04 Lidocaine HCl (Xylocaine-Mpf 1% Vial) 2 ml PRN 1X PRN ID PRIOR TO IV START; Start 09/22/17 at 09:15; Stop 09/23/17 at 09:14 Prochlorperazine Edisylate (Compazine) 5 mg PACU PRN PRN IV NAUSEA, MRX1; Start 09/22/17 at 09:15; Stop 09/23/17 at 09:14 Glycopyrrolate (Robinul) 1 mg STK-MED ONCE .ROUTE ; Start 09/22/17 at 09:29; Stop 09/22/17 at 09:30; Status DC Sevoflurane (Ultane) 90 ml STK-MED ONCE IH ; Start 09/22/17 at 09:29; Stop 09/22 at 09:30; Status DC Rocuronium [place] (Zemuron) 50 mg STK-MED ONCE .ROUTE ; Start 09/22/17 at 09:29 ; Stop 09/22/17 at 09:30; Status DC Fentanyl Citrate (Fentanyl 2ml Vial) 100 mcg STK-MED ONCE .ROUTE ; Start at 09:29; Stop 09/22/17 at 09:30; Status DC Neostigmine Methylsulfate (Neostigmine Methylsulfate) 5 mg STK-MED ONCE .ROUTE ; Start 09/22/17 at 09:29; Stop 09/22/17 at 09:30; Status DC Midazolam HCl (Versed) 2 mg STK-MED ONCE .ROUTE ; Start 09/22/17 at 09:29; Stop 09/22/17 at 09:31; Status DC Propofol 20 ml @ As Directed STK-MED ONCE IV ; Start 09/22/17 at 09:30; Stop 01/28 at 09:31; Status DC Lidocaine HCl (Lidocaine Pf 2% Vial) 5 ml STK-MED ONCE .ROUTE ; Start 09/22/17 at 09:30; Stop 09/22/17 at 09:31; Status DC Dexamethasone Sodium Phosphate (Decadron) 20 mg STK-MED ONCE .ROUTE ; Start 01/28 at 09:30; Stop 09/22/17 at 09:31; Status DC Ondansetron HCl (Zofran) 4 mg STK-MED ONCE .ROUTE ; Start 09/22/17 at 09:30; Stop 09/22/17 at 09:31; Status DC Ketorolac Tromethamine (Toradol For Or Only) 30 mg STK-MED ONCE INJ ; Start 01/28 at 09:30; Stop 09/22/17 at 09:31; Status DC Ketorolac Tromethamine (Toradol For Or Only) 30 mg STK-MED ONCE INJ ; Start 01/28 at 09:30; Stop 09/22/17 at 09:31; Status DC Insulin Aspart (NovoLOG VIAL) 8 unit 1X PACU PRN SQ SEE COMMENTS; Start at 10:45 Active Scripts Active Reported Multivitamins (Multivitamin) 1 Each Tablet 1 Tab PO DAILY Lexapro (Escitalopram Oxalate) 20 Mg Tablet 1 Tab PO DAILY Spironolactone 50 Mg Tablet 1 Tab PO DAILY Carvedilol 3.125 Mg Tablet 1 Tab PO BID for HTN Allergies Allergies: Coded Allergies: No Known Drug Allergies (Unverified , 09/21/17) ROS General: No: Chills, Night Sweats, Fatigue, Malaise, Appetite, Other PSYCHOLOGICAL ROS: No: Anxiety, Behavioral Disorder, Concentration difficultie , Decreased libido, Depression, Disorientation, Hallucinations, Hostility, Irritablity, Memory difficulties, Mood Swings, Obsessive thoughts, Physical abuse, Sexual abuse, Sleep disturbances, Suicidal ideation, Other Eyes: No Blurry vision, No Decreased vision, No Double vision, No Dry eyes, No Excessive tearing, No Eye Pain, No Itchy Eyes, No Loss of vision, No Photophobia , No Scotomata, No Uses contacts, No Uses glasses, No Other HEENT: No: Heacaches, Visual Changes, Hearing change, Nasal congestion, Nasal discharge, Oral lesions, Sinus pain, Sore Throat, Epistaxis, Sneezing, Snoring, Tinnitus, Vertigo, Vocal changes, Other Hematological and Lymphatic: No: Bleeding Problems, Blood Clots, Blood Transfusions, Brusing, Night Sweats, Pallor, Swollen Lymph Nodes, Other Respiratory: No: Cough, Hemoptysis, Orthopnea, Pleuritic Pain, Shortness of breath, SOB with excertion, Sputum Changes, Stridor, Tachypnea, Wheezing, Other Cardiovascular: No Chest Pain, No Palpitations, No Orthopnea, No Paroxysmal Noc. Dyspnea, No Edema, No Lt Headedness, No Other Gastrointestinal: Yes Vomiting, Yes Abdominal Pain Genitourinary: No Dysuria, No Frequency, No Incontinence, No Hematuria, No Retention, No Discharge, No Urgency, No Pain, No Flank Pain, No Other, No , No , No , No , No , No , No Musculoskeletal: No Gait Disturbance, No Joint Pain, No Joint Stiffness, No Joint Swelling, No Muscle Pain, No Muscular Weakness, No Pain In:, No Swelling In:, No Other Neurological: No Behavorial Changes, No Bowel/Bladder ControlChng, No Confusion , No Dizziness, No Gait Disturbance, No Headaches, No Impaired Coord/balance, No Memory Loss, No Numbness/Tingling, No Seizures, No Speech Problems, No Tremors, No Visual Changes, No Weakness, No Other Skin: No Dry Skin, No Eczema, No Hair Changes, No Lumps, No Mole Changes, No Mottling, No Nail Changes, No Pruritus, No Rash, No Skin Lesion Changes, No Other, No Acne Physical Exam HEENT: Atraumatic Lungs: Clear to auscultation Abdomen: Soft (morbidly obese, tender with palpation RUQ, tender mass is palpable) Extremities: No clubbing, No cyanosis Skin: No rashes, No breakdown Neuro: Normal speech Psych/Mental Status: Mental status NL MUSCULOSKELETAL: No joint tenderness, No deformity Vitals VITALS Vital Signs Date Time Temp Pulse Resp B/P (MAP) Pulse Ox O2 Delivery O2 Flow Rate FiO2 09/22/17 10:27 97.8 82 20 129/75 95 Room Air 97.8 Labs Labs Laboratory Tests Test 09/21/17 13:10 09/21/17 13:30 09/21/17 16:55 09/21/17 17:27 Urine Collection Type Unknown Urine Color Dk yellow Urine Clarity Cloudy Urine pH 5.0 Urine Specific [place] >=1.030 Urine Protein 100 mg/dL (NEG-TRACE) Urine Glucose (UA) >=1000 mg/dL (NEG) Urine Ketones (Stick) Trace mg/dL (NEG) Urine Blood Negative (NEG) Urine Nitrite Negative (NEG) Urine Bilirubin Moderate (NEG) Urine Urobilinogen Dipstick 1.0 mg/dL (0.2 mg/dL) Urine Leukocyte Esterase Trace (NEG) Urine RBC Occ /HPF (0-2) Urine WBC 1-4 /HPF (0-4) Urine Squamous Epithelial Cells Many /LPF Urine Bacteria Many /HPF (0-FEW) White Blood Count 23.1 x10^3/uL (4.0-11.0) Red Blood Count 4.85 x10^6/uL (3.50-5.40) Hemoglobin 14.9 g/dL (12.0-15.5) Hematocrit 43.4 % (36.0-47.0) Mean Corpuscular Volume 89 fL (79-100) Mean Corpuscular Hemoglobin 31 pg (25-35) Mean Corpuscular Hemoglobin Concent 34 g/dL (31-37) Red Cell Distribution Width 13.0 % (11.5-14.5) Platelet Count 185 x10^3/uL (140-400) Neutrophils (%) (Auto) 92 % (31-73) Lymphocytes (%) (Auto) 2 % (24-48) Monocytes (%) (Auto) 6 % (0-9) Eosinophils (%) (Auto) 0 % (0-3) Basophils (%) (Auto) 0 % (0-3) Neutrophils # (Auto) 21.3 x10^3uL (1.8-7.7) Lymphocytes # (Auto) 0.5 x10^3/uL (1.0-4.8) Monocytes # (Auto) 1.3 x10^3/uL (0.0-1.1) Eosinophils # (Auto) 0.0 x10^3/uL (0.0-0.7) Basophils # (Auto) 0.0 x10^3/uL (0.0-0.2) Segmented Neutrophils % 85 % (35-66) Band Neutrophils % 11 % (0-9) Lymphocytes % 1 % (24-48) Monocytes % 3 % (0-10) Toxic Granulation Slight Platelet Estimate Adequate (ADEQUATE) Sodium Level 125 mmol/L (136-145) Potassium Level 4.3 mmol/L (3.5-5.1) Chloride Level 91 mmol/L (98-107) Carbon Dioxide Level 25 mmol/L (21-32) Anion Gap 9 (6-14) Blood Urea Nitrogen 36 mg/dL (7-20) Creatinine 1.9 mg/dL (0.6-1.0) Estimated GFR (Cockcroft-Gault) 27.3 BUN/Creatinine Ratio 19 (6-20) Glucose Level 422 mg/dL (70-99) Calcium Level 9.9 mg/dL (8.5-10.1) Total Bilirubin 2.9 mg/dL (0.2-1.0) Aspartate Amino Transf (AST/SGOT) 21 U/L (15-37) Alanine Aminotransferase (ALT/SGPT) 33 U/L (14-59) Alkaline Phosphatase 181 U/L (46-116) Total Protein 7.6 g/dL (6.4-8.2) Albumin 3.0 g/dL (3.4-5.0) Albumin/Globulin Ratio 0.7 (1.0-1.7) Lipase 95 U/L (73-393) Ethyl Alcohol Level < 10 mg/dL (0-10) Lactic Acid Level 1.5 mmol/L (0.4-2.0) Glucose (Fingerstick) 319 mg/dL (70-99) Test 09/22/17 04:05 09/22/17 04:08 09/22/17 10:11 Sodium Level 130 mmol/L (136-145) Potassium Level 3.7 mmol/L (3.5-5.1) Chloride Level 99 mmol/L (98-107) Carbon Dioxide Level 23 mmol/L (21-32) Anion Gap 8 (6-14) Blood Urea Nitrogen 26 mg/dL (7-20) Creatinine 1.1 mg/dL (0.6-1.0) Estimated GFR (Cockcroft-Gault) 51.4 BUN/Creatinine Ratio 24 (6-20) Glucose Level 272 mg/dL (70-99) Calcium Level 8.5 mg/dL (8.5-10.1) Total Bilirubin 1.5 mg/dL (0.2-1.0) Aspartate Amino Transf (AST/SGOT) 20 U/L (15-37) Alanine Aminotransferase (ALT/SGPT) 25 U/L (14-59) Alkaline Phosphatase 134 U/L (46-116) Total Protein 5.8 g/dL (6.4-8.2) Albumin 2.1 g/dL (3.4-5.0) Albumin/Globulin Ratio 0.6 (1.0-1.7) White Blood Count 14.0 x10^3/uL (4.0-11.0) Red Blood Count 3.99 x10^6/uL (3.50-5.40) Hemoglobin 12.2 g/dL (12.0-15.5) Hematocrit 35.5 % (36.0-47.0) Mean Corpuscular Volume 89 fL (79-100) Mean Corpuscular Hemoglobin 31 pg (25-35) Mean Corpuscular Hemoglobin Concent 34 g/dL (31-37) Red Cell Distribution Width 13.2 % (11.5-14.5) Platelet Count 128 x10^3/uL (140-400) Neutrophils (%) (Auto) 90 % (31-73) Lymphocytes (%) (Auto) 3 % (24-48) Monocytes (%) (Auto) 8 % (0-9) Eosinophils (%) (Auto) 0 % (0-3) Basophils (%) (Auto) 0 % (0-3) Neutrophils # (Auto) 12.5 x10^3uL (1.8-7.7) Lymphocytes # (Auto) 0.4 x10^3/uL (1.0-4.8) Monocytes # (Auto) 1.1 x10^3/uL (0.0-1.1) Eosinophils # (Auto) 0.0 x10^3/uL (0.0-0.7) Basophils # (Auto) 0.0 x10^3/uL (0.0-0.2) Direct Bilirubin 1.0 mg/dL (0.0-0.2) Glucose (Fingerstick) 280 mg/dL (70-99) Laboratory Tests Test 09/21/17 13:10 09/21/17 13:30 09/21/17 16:55 09/21/17 17:27 Urine Collection Type Unknown Urine Color Dk yellow Urine Clarity Cloudy Urine pH 5.0 Urine Specific [place] >=1.030 Urine Protein 100 mg/dL (NEG-TRACE) Urine Glucose (UA) >=1000 mg/dL (NEG) Urine Ketones (Stick) Trace mg/dL (NEG) Urine Blood Negative (NEG) Urine Nitrite Negative (NEG) Urine Bilirubin Moderate (NEG) Urine Urobilinogen Dipstick 1.0 mg/dL (0.2 mg/dL) Urine Leukocyte Esterase Trace (NEG) Urine RBC Occ /HPF (0-2) Urine WBC 1-4 /HPF (0-4) Urine Squamous Epithelial Cells Many /LPF Urine Bacteria Many /HPF (0-FEW) White Blood Count 23.1 x10^3/uL (4.0-11.0) Red Blood Count 4.85 x10^6/uL (3.50-5.40) Hemoglobin 14.9 g/dL (12.0-15.5) Hematocrit 43.4 % (36.0-47.0) Mean Corpuscular Volume 89 fL (79-100) Mean Corpuscular Hemoglobin 31 pg (25-35) Mean Corpuscular Hemoglobin Concent 34 g/dL (31-37) Red Cell Distribution Width 13.0 % (11.5-14.5) Platelet Count 185 x10^3/uL (140-400) Neutrophils (%) (Auto) 92 % (31-73) Lymphocytes (%) (Auto) 2 % (24-48) Monocytes (%) (Auto) 6 % (0-9) Eosinophils (%) (Auto) 0 % (0-3) Basophils (%) (Auto) 0 % (0-3) Neutrophils # (Auto) 21.3 x10^3uL (1.8-7.7) Lymphocytes # (Auto) 0.5 x10^3/uL (1.0-4.8) Monocytes # (Auto) 1.3 x10^3/uL (0.0-1.1) Eosinophils # (Auto) 0.0 x10^3/uL (0.0-0.7) Basophils # (Auto) 0.0 x10^3/uL (0.0-0.2) Segmented Neutrophils % 85 % (35-66) Band Neutrophils % 11 % (0-9) Lymphocytes % 1 % (24-48) Monocytes % 3 % (0-10) Toxic Granulation Slight Platelet Estimate Adequate (ADEQUATE) Sodium Level 125 mmol/L (136-145) Potassium Level 4.3 mmol/L (3.5-5.1) Chloride Level 91 mmol/L (98-107) Carbon Dioxide Level 25 mmol/L (21-32) Anion Gap 9 (6-14) Blood Urea Nitrogen 36 mg/dL (7-20) Creatinine 1.9 mg/dL (0.6-1.0) Estimated GFR (Cockcroft-Gault) 27.3 BUN/Creatinine Ratio 19 (6-20) Glucose Level 422 mg/dL (70-99) Calcium Level 9.9 mg/dL (8.5-10.1) Total Bilirubin 2.9 mg/dL (0.2-1.0) Aspartate Amino Transf (AST/SGOT) 21 U/L (15-37) Alanine Aminotransferase (ALT/SGPT) 33 U/L (14-59) Alkaline Phosphatase 181 U/L (46-116) Total Protein 7.6 g/dL (6.4-8.2) Albumin 3.0 g/dL (3.4-5.0) Albumin/Globulin Ratio 0.7 (1.0-1.7) Lipase 95 U/L (73-393) Ethyl Alcohol Level < 10 mg/dL (0-10) Lactic Acid Level 1.5 mmol/L (0.4-2.0) Glucose (Fingerstick) 319 mg/dL (70-99) Test 09/22/17 04:05 09/22/17 04:08 09/22/17 10:11 Sodium Level 130 mmol/L (136-145) Potassium Level 3.7 mmol/L (3.5-5.1) Chloride Level 99 mmol/L (98-107) Carbon Dioxide Level 23 mmol/L (21-32) Anion Gap 8 (6-14) Blood Urea Nitrogen 26 mg/dL (7-20) Creatinine 1.1 mg/dL (0.6-1.0) Estimated GFR (Cockcroft-Gault) 51.4 BUN/Creatinine Ratio 24 (6-20) Glucose Level 272 mg/dL (70-99) Calcium Level 8.5 mg/dL (8.5-10.1) Total Bilirubin 1.5 mg/dL (0.2-1.0) Aspartate Amino Transf (AST/SGOT) 20 U/L (15-37) Alanine Aminotransferase (ALT/SGPT) 25 U/L (14-59) Alkaline Phosphatase 134 U/L (46-116) Total Protein 5.8 g/dL (6.4-8.2) Albumin 2.1 g/dL (3.4-5.0) Albumin/Globulin Ratio 0.6 (1.0-1.7) White Blood Count 14.0 x10^3/uL (4.0-11.0) Red Blood Count 3.99 x10^6/uL (3.50-5.40) Hemoglobin 12.2 g/dL (12.0-15.5) Hematocrit 35.5 % (36.0-47.0) Mean Corpuscular Volume 89 fL (79-100) Mean Corpuscular Hemoglobin 31 pg (25-35) Mean Corpuscular Hemoglobin Concent 34 g/dL (31-37) Red Cell Distribution Width 13.2 % (11.5-14.5) Platelet Count 128 x10^3/uL (140-400) Neutrophils (%) (Auto) 90 % (31-73) Lymphocytes (%) (Auto) 3 % (24-48) Monocytes (%) (Auto) 8 % (0-9) Eosinophils (%) (Auto) 0 % (0-3) Basophils (%) (Auto) 0 % (0-3) Neutrophils # (Auto) 12.5 x10^3uL (1.8-7.7) Lymphocytes # (Auto) 0.4 x10^3/uL (1.0-4.8) Monocytes # (Auto) 1.1 x10^3/uL (0.0-1.1) Eosinophils # (Auto) 0.0 x10^3/uL (0.0-0.7) Basophils # (Auto) 0.0 x10^3/uL (0.0-0.2) Direct Bilirubin 1.0 mg/dL (0.0-0.2) Glucose (Fingerstick) 280 mg/dL (70-99) Assessment/Plan Assessment/Plan 56 year old female with RUQ pain, CT shows marked gallbladder inflammation, tender RUQ mass. Recommend lap robby. I reviewed the details and risks of surgery with the patient. The risks include bleeding, infection, bile duct injury, bile leak, injury to surrounding structures, need for open conversion, anesthetic leak, pain, potential need for additional procedure or surgery. I also explained that the risks are increased due to the marked inflammation of the gallbladder. She understands and would like to proceed. KAREN BAL MD Sep 22, 2017 10:43
[2017-09-22] MEDS ORDERED: INSULIN ASPART 100 UNIT/ML 10ML VIAL. SQ PRN (10:45)
[2017-09-22] MEDS ORDERED: PHENYLEPHRINE in 0.9% NACL PF 1 MG/10 ML SYRINGE. IV ONE (11:19)
[2017-09-22] MEDS: VANCOMYCIN PER PHARMACY MC PRN (11:33)
[2017-09-22] MEDS ORDERED: ROCURONIUM 100 MG/10 ML VIAL. ONE (11:34)
--- NOTE | 2017-09-22 12:34 | RAD ---
Intraoperative cholangiogram, 09/22/2017: HISTORY: Cholecystectomy 3 spot films from surgery are presented for review. 0.17 minutes of fluoroscopy time was utilized. Contrast has been injected into the cystic duct remnant. There is good flow of contrast into the duodenum at the ampulla. No filling defect is seen in the common duct to suggest a retained calculus. No contrast extravasation is seen. IMPRESSION: No significant abnormality is detected. Electronically signed by: Freddie Martin MD (09/22/2017 12:30 PM) [facility]
--- NOTE | 2017-09-22 12:51 | PDOC2 ---
CONSULT Date of Consult Date of Consult DATE: 09/22/17 TIME: 12:46 Reason for Consult Reason for Consult: abd pain, abnormal CT History of Present Illness Reason for Visit: 56 yo female with chronic and worsening abd pain- in OR at present- chart, labs and history reviewed Past Medical History Cardiovascular: No pertinent hx Infectious disease: No pertinent hx ENT: No pertinent hx Endocrine: Diabetes Past Surgical History Past Surgical History: Other (gastric bypass) Family History Family History: Adopted Social History No ALCOHOL: none Drugs: None Current Problem List Problem List Problems Medical Problems: (1) Cholecystitis Status: Acute (2) Hyponatremia Status: Acute (3) Sepsis Status: Acute Current Medications Current Medications Current Medications Fentanyl Citrate (Fentanyl 2ml Vial) 50 mcg 1X ONCE IV Last administered on 12/29at 14:34; Start 09/21/17 at 13:45; Stop 09/21/17 at 13:46; Status DC Pantoprazole Sodium (PROTONIX VIAL for IV PUSH) 40 mg 1X ONCE IVP Last administered on 09/21/17at 13:45; Start 09/21/17 at 13:45; Stop 09/21/17 at 13:46 ; Status DC Ondansetron HCl (Zofran) 4 mg 1X ONCE IV Last administered on 09/21/17at 14:34 ; Start 09/21/17 at 13:45; Stop 09/21/17 at 13:46; Status DC Sodium Chloride 1,000 ml @ 1,000 mls/hr 1X ONCE IV Last administered on at 14:33; Start 09/21/17 at 13:45; Stop 09/21/17 at 14:44; Status DC Iohexol (Omnipaque 300 Mg/ml) 75 ml 1X ONCE IV Last administered on 09/21/17at 13:45; Start 09/21/17 at 13:45; Stop 09/21/17 at 13:46; Status DC Info (CONTRAST GIVEN -- Rx MONITORING) 1 each PRN DAILY PRN MC SEE COMMENTS; Start 09/21/17 at 13:45; Stop 09/23/17 at 13:44 Sodium Chloride 1,000 ml @ 1,000 mls/hr 1X ONCE IV Last administered on at 14:33; Start 09/21/17 at 14:00; Stop 09/21/17 at 14:59; Status DC Acetaminophen (Tylenol) 1,000 mg 1X ONCE PO Last administered on 09/21/17at 14: 34; Start 09/21/17 at 14:00; Stop 09/21/17 at 14:01; Status DC Sodium Chloride 1,000 ml @ 1,000 mls/hr 1X ONCE IV Last administered on at 16:18; Start 09/21/17 at 14:15; Stop 09/21/17 at 15:14; Status DC Clindamycin Phosphate 50 ml @ 100 mls/hr Q8HRS IV ; Start 09/21/17 at 22:00; Stop 09/21/17 at 22:00; Status DC Clindamycin Phosphate 50 ml @ 100 mls/hr 1X ONCE IV Last administered on 09/21at 16:18; Start 09/21/17 at 15:30; Stop 09/21/17 at 15:59; Status DC Vancomycin HCl (Vanco Per Pharmacy) 1 each PRN DAILY PRN MC SEE COMMENTS Last administered on 09/22/17at 11:33; Start 09/21/17 at 15:30 Vancomycin HCl 2 gm/Sodium Chloride 500 ml @ 250 mls/hr 1X ONCE IV Last administered on 09/21/17at 17:21; Start 09/21/17 at 15:30; Stop 09/21/17 at 17:29 ; Status DC Ondansetron HCl (Zofran) 4 mg PRN Q8HRS PRN IV NAUSEA/VOMITING; Start 09/21/17 at 16:15; Stop 09/22/17 at 16:14 Fentanyl Citrate (Fentanyl 2ml Vial) 50 mcg PRN Q2HR PRN IV PAIN Last administered on 09/22/17at 04:00; Start 09/21/17 at 16:15; Stop 09/22/17 at 16:14 Acetaminophen (Tylenol) 650 mg PRN Q4HRS PRN PO FEVER; Start 09/21/17 at 16:15 ; Stop 09/22/17 at 16:14 Sodium Chloride 1,000 ml @ 125 mls/hr 1X ONCE IV Last administered on at 17:33; Start 09/21/17 at 16:15; Stop 09/22/17 at 00:14; Status DC Vancomycin HCl 1.5 gm/Sodium Chloride 500 ml @ 250 mls/hr Q24H IV ; Start 09/22 at 18:00 Vancomycin HCl (Vancomycin Trough Level) 1 each 1X ONCE MC ; Start 09/23/17 at 17:30; Stop 09/23/17 at 17:31 Insulin Human Lispro (HumaLOG) 0-9 UNITS TIDWMEALS SQ Last administered on 09/21at 18:05; Start 09/21/17 at 18:00 Dextrose (Dextrose 50%-Water Syringe) 12.5 gm PRN Q15MIN PRN IV SEE COMMENTS; Start 09/21/17 at 17:30 Insulin Glargine (Lantus) 20 units QHS SQ ; Start 09/21/17 at 21:00 Insulin Human Lispro (HumaLOG) 10 units TIDWMEALS SQ ; Start 09/22/17 at 08:00 Insulin Human Lispro (HumaLOG) 20 units 1X ONCE SQ ; Start 09/21/17 at 17:30; Stop 09/21/17 at 17:31; Status UNV Piperacillin Sod/ Tazobactam Sod (Zosyn Per Pharmacy) 1 each PRN DAILY PRN MC SEE COMMENTS; Start 09/21/17 at 17:45 Piperacillin Sod/ Tazobactam Sod 2.25 gm/Sodium Chloride 50 ml @ 100 mls/hr Q6HRS IV Last administered on 09/22/17at 11:07; Start 09/21/17 at 19:00 Ondansetron HCl (Zofran) 4 mg PRN Q6HRS PRN IV NAUSEA/VOMITING; Start 09/22/17 at 09:15; Stop 09/23/17 at 09:14 Fentanyl Citrate (Fentanyl 2ml Vial) 25 mcg PRN Q5MIN PRN IV MILD PAIN; Start 09/22/17 at 09:15; Stop 09/23/17 at 09:14 Fentanyl Citrate (Fentanyl 2ml Vial) 50 mcg PRN Q5MIN PRN IV MODERATE TO SEVERE PAIN; Start 09/22/17 at 09:15; Stop 09/23/17 at 09:14 Morphine Sulfate (Morphine Sulfate) 1 mg PRN Q10MIN PRN IV SEVERE PAIN; Start 09/22/17 at 09:15; Stop 09/23/17 at 09:14 Ringer's Solution 1,000 ml @ 30 mls/hr Q24H IV ; Start 09/22/17 at 09:05; Stop 09/22/17 at 21:04 Lidocaine HCl (Xylocaine-Mpf 1% Vial) 2 ml PRN 1X PRN ID PRIOR TO IV START; Start 09/22/17 at 09:15; Stop 09/23/17 at 09:14 Prochlorperazine Edisylate (Compazine) 5 mg PACU PRN PRN IV NAUSEA, MRX1; Start 09/22/17 at 09:15; Stop 09/23/17 at 09:14 Glycopyrrolate (Robinul) 1 mg STK-MED ONCE .ROUTE ; Start 09/22/17 at 09:29; Stop 09/22/17 at 09:30; Status DC Sevoflurane (Ultane) 90 ml STK-MED ONCE IH ; Start 09/22/17 at 09:29; Stop 09/22 at 09:30; Status DC Rocuronium Mentone (Zemuron) 50 mg STK-MED ONCE .ROUTE ; Start 09/22/17 at 09:29 ; Stop 09/22/17 at 09:30; Status DC Fentanyl Citrate (Fentanyl 2ml Vial) 100 mcg STK-MED ONCE .ROUTE ; Start at 09:29; Stop 09/22/17 at 09:30; Status DC Neostigmine Methylsulfate (Neostigmine Methylsulfate) 5 mg STK-MED ONCE .ROUTE ; Start 09/22/17 at 09:29; Stop 09/22/17 at 09:30; Status DC Midazolam HCl (Versed) 2 mg STK-MED ONCE .ROUTE ; Start 09/22/17 at 09:29; Stop 09/22/17 at 09:31; Status DC Propofol 20 ml @ As Directed STK-MED ONCE IV ; Start 09/22/17 at 09:30; Stop 01/28 at 09:31; Status DC Lidocaine HCl (Lidocaine Pf 2% Vial) 5 ml STK-MED ONCE .ROUTE ; Start 09/22/17 at 09:30; Stop 09/22/17 at 09:31; Status DC Dexamethasone Sodium Phosphate (Decadron) 20 mg STK-MED ONCE .ROUTE ; Start 01/28 at 09:30; Stop 09/22/17 at 09:31; Status DC Ondansetron HCl (Zofran) 4 mg STK-MED ONCE .ROUTE ; Start 09/22/17 at 09:30; Stop 09/22/17 at 09:31; Status DC Ketorolac Tromethamine (Toradol For Or Only) 30 mg STK-MED ONCE INJ ; Start 01/28 at 09:30; Stop 09/22/17 at 09:31; Status DC Ketorolac Tromethamine (Toradol For Or Only) 30 mg STK-MED ONCE INJ ; Start 01/28 at 09:30; Stop 09/22/17 at 09:31; Status DC Insulin Aspart (NovoLOG VIAL) 8 unit 1X PACU PRN SQ SEE COMMENTS Last administered on 09/22/17at 10:48; Start 09/22/17 at 10:45 Bupivacaine HCl/ Epinephrine Bitart (Marcaine-Epi 0.5%-1:[id number]) 50 ml STK-MED ONCE .ROUTE Last administered on 09/22/17at 11:28; Start 09/22/17 at 09:52; Stop 09/22/17 at 10:54; Status DC Iohexol (Omnipaque 300 Mg/ml) 100 ml STK-MED ONCE .ROUTE Last administered on at 12:23; Start 09/22/17 at 09:53; Stop 09/22/17 at 10:54; Status DC Cellulose (Surgicel Hemostat 4x8) 1 each STK-MED ONCE .ROUTE Last administered on 09/22/17at 11:49; Start 09/22/17 at 09:53; Stop 09/22/17 at 10:54; Status DC Phenylephrine HCl (PHENYLEPHRINE in 0.9% NACL PF) 1 mg STK-MED ONCE IV ; Start 09/22/17 at 11:19; Stop 09/22/17 at 11:21; Status DC Rocuronium [place]one (Zemuron) 100 mg STK-MED ONCE .ROUTE ; Start 09/22/17 at 11: 34; Stop 09/22/17 at 11:35; Status DC Fentanyl Citrate (Fentanyl 2ml Vial) 100 mcg STK-MED ONCE .ROUTE ; Start at 11:35; Stop 09/22/17 at 11:36; Status DC Active Scripts Active Reported Multivitamins (Multivitamin) 1 Each Tablet 1 Tab PO DAILY Lexapro (Escitalopram Oxalate) 20 Mg Tablet 1 Tab PO DAILY Spironolactone 50 Mg Tablet 1 Tab PO DAILY Carvedilol 3.125 Mg Tablet 1 Tab PO BID for HTN Allergies Allergies: Coded Allergies: Penicillins (Verified Allergy, Unknown, 09/22/17) Vitals VITALS Vital Signs Date Time Temp Pulse Resp B/P (MAP) Pulse Ox O2 Delivery O2 Flow Rate FiO2 09/22/17 10:27 97.8 82 20 129/75 95 Room Air 97.8 Labs Labs Laboratory Tests Test 09/21/17 13:10 09/21/17 13:30 09/21/17 16:55 09/21/17 17:27 Urine Collection Type Unknown Urine Color Dk yellow Urine Clarity Cloudy Urine pH 5.0 Urine Specific [place] >=1.030 Urine Protein 100 mg/dL (NEG-TRACE) Urine Glucose (UA) >=1000 mg/dL (NEG) Urine Ketones (Stick) Trace mg/dL (NEG) Urine Blood Negative (NEG) Urine Nitrite Negative (NEG) Urine Bilirubin Moderate (NEG) Urine Urobilinogen Dipstick 1.0 mg/dL (0.2 mg/dL) Urine Leukocyte Esterase Trace (NEG) Urine RBC Occ /HPF (0-2) Urine WBC 1-4 /HPF (0-4) Urine Squamous Epithelial Cells Many /LPF Urine Bacteria Many /HPF (0-FEW) White Blood Count 23.1 x10^3/uL (4.0-11.0) Red Blood Count 4.85 x10^6/uL (3.50-5.40) Hemoglobin 14.9 g/dL (12.0-15.5) Hematocrit 43.4 % (36.0-47.0) Mean Corpuscular Volume 89 fL (79-100) Mean Corpuscular Hemoglobin 31 pg (25-35) Mean Corpuscular Hemoglobin Concent 34 g/dL (31-37) Red Cell Distribution Width 13.0 % (11.5-14.5) Platelet Count 185 x10^3/uL (140-400) Neutrophils (%) (Auto) 92 % (31-73) Lymphocytes (%) (Auto) 2 % (24-48) Monocytes (%) (Auto) 6 % (0-9) Eosinophils (%) (Auto) 0 % (0-3) Basophils (%) (Auto) 0 % (0-3) Neutrophils # (Auto) 21.3 x10^3uL (1.8-7.7) Lymphocytes # (Auto) 0.5 x10^3/uL (1.0-4.8) Monocytes # (Auto) 1.3 x10^3/uL (0.0-1.1) Eosinophils # (Auto) 0.0 x10^3/uL (0.0-0.7) Basophils # (Auto) 0.0 x10^3/uL (0.0-0.2) Segmented Neutrophils % 85 % (35-66) Band Neutrophils % 11 % (0-9) Lymphocytes % 1 % (24-48) Monocytes % 3 % (0-10) Toxic Granulation Slight Platelet Estimate Adequate (ADEQUATE) Sodium Level 125 mmol/L (136-145) Potassium Level 4.3 mmol/L (3.5-5.1) Chloride Level 91 mmol/L (98-107) Carbon Dioxide Level 25 mmol/L (21-32) Anion Gap 9 (6-14) Blood Urea Nitrogen 36 mg/dL (7-20) Creatinine 1.9 mg/dL (0.6-1.0) Estimated GFR (Cockcroft-Gault) 27.3 BUN/Creatinine Ratio 19 (6-20) Glucose Level 422 mg/dL (70-99) Calcium Level 9.9 mg/dL (8.5-10.1) Total Bilirubin 2.9 mg/dL (0.2-1.0) Aspartate Amino Transf (AST/SGOT) 21 U/L (15-37) Alanine Aminotransferase (ALT/SGPT) 33 U/L (14-59) Alkaline Phosphatase 181 U/L (46-116) Total Protein 7.6 g/dL (6.4-8.2) Albumin 3.0 g/dL (3.4-5.0) Albumin/Globulin Ratio 0.7 (1.0-1.7) Lipase 95 U/L (73-393) Ethyl Alcohol Level < 10 mg/dL (0-10) Lactic Acid Level 1.5 mmol/L (0.4-2.0) Glucose (Fingerstick) 319 mg/dL (70-99) Test 09/22/17 04:05 09/22/17 04:08 09/22/17 10:11 Sodium Level 130 mmol/L (136-145) Potassium Level 3.7 mmol/L (3.5-5.1) Chloride Level 99 mmol/L (98-107) Carbon Dioxide Level 23 mmol/L (21-32) Anion Gap 8 (6-14) Blood Urea Nitrogen 26 mg/dL (7-20) Creatinine 1.1 mg/dL (0.6-1.0) Estimated GFR (Cockcroft-Gault) 51.4 BUN/Creatinine Ratio 24 (6-20) Glucose Level 272 mg/dL (70-99) Calcium Level 8.5 mg/dL (8.5-10.1) Total Bilirubin 1.5 mg/dL (0.2-1.0) Aspartate Amino Transf (AST/SGOT) 20 U/L (15-37) Alanine Aminotransferase (ALT/SGPT) 25 U/L (14-59) Alkaline Phosphatase 134 U/L (46-116) Total Protein 5.8 g/dL (6.4-8.2) Albumin 2.1 g/dL (3.4-5.0) Albumin/Globulin Ratio 0.6 (1.0-1.7) White Blood Count 14.0 x10^3/uL (4.0-11.0) Red Blood Count 3.99 x10^6/uL (3.50-5.40) Hemoglobin 12.2 g/dL (12.0-15.5) Hematocrit 35.5 % (36.0-47.0) Mean Corpuscular Volume 89 fL (79-100) Mean Corpuscular Hemoglobin 31 pg (25-35) Mean Corpuscular Hemoglobin Concent 34 g/dL (31-37) Red Cell Distribution Width 13.2 % (11.5-14.5) Platelet Count 128 x10^3/uL (140-400) Neutrophils (%) (Auto) 90 % (31-73) Lymphocytes (%) (Auto) 3 % (24-48) Monocytes (%) (Auto) 8 % (0-9) Eosinophils (%) (Auto) 0 % (0-3) Basophils (%) (Auto) 0 % (0-3) Neutrophils # (Auto) 12.5 x10^3uL (1.8-7.7) Lymphocytes # (Auto) 0.4 x10^3/uL (1.0-4.8) Monocytes # (Auto) 1.1 x10^3/uL (0.0-1.1) Eosinophils # (Auto) 0.0 x10^3/uL (0.0-0.7) Basophils # (Auto) 0.0 x10^3/uL (0.0-0.2) Direct Bilirubin 1.0 mg/dL (0.0-0.2) Glucose (Fingerstick) 280 mg/dL (70-99) Laboratory Tests Test 09/21/17 13:10 09/21/17 13:30 09/21/17 16:55 09/21/17 17:27 Urine Collection Type Unknown Urine Color Dk yellow Urine Clarity Cloudy Urine pH 5.0 Urine Specific [place] >=1.030 Urine Protein 100 mg/dL (NEG-TRACE) Urine Glucose (UA) >=1000 mg/dL (NEG) Urine Ketones (Stick) Trace mg/dL (NEG) Urine Blood Negative (NEG) Urine Nitrite Negative (NEG) Urine Bilirubin Moderate (NEG) Urine Urobilinogen Dipstick 1.0 mg/dL (0.2 mg/dL) Urine Leukocyte Esterase Trace (NEG) Urine RBC Occ /HPF (0-2) Urine WBC 1-4 /HPF (0-4) Urine Squamous Epithelial Cells Many /LPF Urine Bacteria Many /HPF (0-FEW) White Blood Count 23.1 x10^3/uL (4.0-11.0) Red Blood Count 4.85 x10^6/uL (3.50-5.40) Hemoglobin 14.9 g/dL (12.0-15.5) Hematocrit 43.4 % (36.0-47.0) Mean Corpuscular Volume 89 fL (79-100) Mean Corpuscular Hemoglobin 31 pg (25-35) Mean Corpuscular Hemoglobin Concent 34 g/dL (31-37) Red Cell Distribution Width 13.0 % (11.5-14.5) Platelet Count 185 x10^3/uL (140-400) Neutrophils (%) (Auto) 92 % (31-73) Lymphocytes (%) (Auto) 2 % (24-48) Monocytes (%) (Auto) 6 % (0-9) Eosinophils (%) (Auto) 0 % (0-3) Basophils (%) (Auto) 0 % (0-3) Neutrophils # (Auto) 21.3 x10^3uL (1.8-7.7) Lymphocytes # (Auto) 0.5 x10^3/uL (1.0-4.8) Monocytes # (Auto) 1.3 x10^3/uL (0.0-1.1) Eosinophils # (Auto) 0.0 x10^3/uL (0.0-0.7) Basophils # (Auto) 0.0 x10^3/uL (0.0-0.2) Segmented Neutrophils % 85 % (35-66) Band Neutrophils % 11 % (0-9) Lymphocytes % 1 % (24-48) Monocytes % 3 % (0-10) Toxic Granulation Slight Platelet Estimate Adequate (ADEQUATE) Sodium Level 125 mmol/L (136-145) Potassium Level 4.3 mmol/L (3.5-5.1) Chloride Level 91 mmol/L (98-107) Carbon Dioxide Level 25 mmol/L (21-32) Anion Gap 9 (6-14) Blood Urea Nitrogen 36 mg/dL (7-20) Creatinine 1.9 mg/dL (0.6-1.0) Estimated GFR (Cockcroft-Gault) 27.3 BUN/Creatinine Ratio 19 (6-20) Glucose Level 422 mg/dL (70-99) Calcium Level 9.9 mg/dL (8.5-10.1) Total Bilirubin 2.9 mg/dL (0.2-1.0) Aspartate Amino Transf (AST/SGOT) 21 U/L (15-37) Alanine Aminotransferase (ALT/SGPT) 33 U/L (14-59) Alkaline Phosphatase 181 U/L (46-116) Total Protein 7.6 g/dL (6.4-8.2) Albumin 3.0 g/dL (3.4-5.0) Albumin/Globulin Ratio 0.7 (1.0-1.7) Lipase 95 U/L (73-393) Ethyl Alcohol Level < 10 mg/dL (0-10) Lactic Acid Level 1.5 mmol/L (0.4-2.0) Glucose (Fingerstick) 319 mg/dL (70-99) Test 09/22/17 04:05 09/22/17 04:08 09/22/17 10:11 Sodium Level 130 mmol/L (136-145) Potassium Level 3.7 mmol/L (3.5-5.1) Chloride Level 99 mmol/L (98-107) Carbon Dioxide Level 23 mmol/L (21-32) Anion Gap 8 (6-14) Blood Urea Nitrogen 26 mg/dL (7-20) Creatinine 1.1 mg/dL (0.6-1.0) Estimated GFR (Cockcroft-Gault) 51.4 BUN/Creatinine Ratio 24 (6-20) Glucose Level 272 mg/dL (70-99) Calcium Level 8.5 mg/dL (8.5-10.1) Total Bilirubin 1.5 mg/dL (0.2-1.0) Aspartate Amino Transf (AST/SGOT) 20 U/L (15-37) Alanine Aminotransferase (ALT/SGPT) 25 U/L (14-59) Alkaline Phosphatase 134 U/L (46-116) Total Protein 5.8 g/dL (6.4-8.2) Albumin 2.1 g/dL (3.4-5.0) Albumin/Globulin Ratio 0.6 (1.0-1.7) White Blood Count 14.0 x10^3/uL (4.0-11.0) Red Blood Count 3.99 x10^6/uL (3.50-5.40) Hemoglobin 12.2 g/dL (12.0-15.5) Hematocrit 35.5 % (36.0-47.0) Mean Corpuscular Volume 89 fL (79-100) Mean Corpuscular Hemoglobin 31 pg (25-35) Mean Corpuscular Hemoglobin Concent 34 g/dL (31-37) Red Cell Distribution Width 13.2 % (11.5-14.5) Platelet Count 128 x10^3/uL (140-400) Neutrophils (%) (Auto) 90 % (31-73) Lymphocytes (%) (Auto) 3 % (24-48) Monocytes (%) (Auto) 8 % (0-9) Eosinophils (%) (Auto) 0 % (0-3) Basophils (%) (Auto) 0 % (0-3) Neutrophils # (Auto) 12.5 x10^3uL (1.8-7.7) Lymphocytes # (Auto) 0.4 x10^3/uL (1.0-4.8) Monocytes # (Auto) 1.1 x10^3/uL (0.0-1.1) Eosinophils # (Auto) 0.0 x10^3/uL (0.0-0.7) Basophils # (Auto) 0.0 x10^3/uL (0.0-0.2) Direct Bilirubin 1.0 mg/dL (0.0-0.2) Glucose (Fingerstick) 280 mg/dL (70-99) Images Images CT with cholecystitis, prior gastric bypass Assessment/Plan Assessment/Plan Pain, CT and history all support acute on chronic cholecystitis- and with mild increase in bili, either from sepsis or cholangitis- but no dilated ducts on CT and transaminase were OK- in OR now undergoing cholecystectomy- we will re-evaluate after surgery, monitoring progress and labs MARLON HAYWOOD MD Sep 22, 2017 12:51
--- NOTE | 2017-09-22 13:50 | PDOC4 ---
Operative Note Operative Note Operative Note: Preoperative Diagnosis: Acute cholecystitis Postoperative Diagnosis: Severe gangrenous cholecystitis Procedure: Laparoscopic cholecystectomy with intraoperative cholangiogram Surgeons: Vinicio Pin Game Machine Inspector: Rhonda MORRIS Anesthesia: Gen. Estimated Blood Loss: 150 mL Specimen: Gallbladder to pathology Drains: 19 Fr RYAN Complications: None Indications: The patient is a 56-year-old female who reported with acute onset of severe abdominal pain. Her evaluation suggested severe acute cholecystitis. Surgical treatment was offered by means of a laparoscopic cholecystectomy. The risks of surgery were discussed which include bleeding, infection, bile duct injury, bile leak, pain, the potential for additional surgeries or procedures. The patient understands and would like to proceed. Description: The patient was taken to the operating room and laid supine on the operating table. General anesthesia was performed. The abdomen was prepped with ChloraPrep and draped in a standard surgical fashion. A right abdominal incision was made through which a visualized 5 mm trocar was inserted. A pneumoperitoneum was created and the laparoscope was introduced. In the upper midabdomen a 12 mm trocar was inserted and in the right upper quadrant two 5 mm trochars were inserted. The gallbladder initially could not be seen due to adherent omentum with an obvious severe inflammatory reaction along the inferior part of the liver. The omentum was peeled away from the gallbladder exposing patchy areas of gangrenous change and severe gallbladder distention and thickening. Over 200 mL of bilious fluid was aspirated from the gallbladder to assist with decompression. The gallbladder was then retracted cephalad. We began dissecting inferiorly which proved to be quite difficult due to the marked gallbladder and pericholecystic inflammatory change. An additional 5 mm trochar was placed in the right abdomen to assist with retraction and improved exposure. The cystic duct was then eventually identified and dissected free from surrounding tissues. One clip was placed on the duct near the gallbladder junction. An opening was made in the duct and a cholangiocatheter placed within and secured with a clip. Using contrast dye and fluoroscopy an intraoperative cholangiogram was performed that appeared unremarkable. The clip and catheter were then withdrawn. Three clips were placed on the cystic duct and it was divided. The cystic artery was then identified, dissected free, doubly clipped and divided as well. The gallbladder was then mobilized away from the liver with cautery. This also was very difficult due to the severe cholecystitis and enlarged gallbladder. A Surgicel pack was placed on the gallbladder fossa to assist with hemostasis. The gallbladder was then placed in an endoscopic bag and extracted at the superior trochar incision. The fascia and skin incisions had to be extended to allow for extraction of the markedly enlarged and inflamed gallbladder. The fascia there was closed with interrupted 0 PDS sutures. All blood and irrigation fluid was suctioned and hemostasis was good. The remaining ports were removed and the pneumoperitoneum was relieved. The skin incisions were closed using 4-0 Monocryl suture. Steri-Strips and dressings were then applied. The patient tolerated the procedure well and was sent to the recovery room in stable condition. At the end of the case all counts were correct. KAREN BAL MD Sep 22, 2017 13:50
[2017-09-22] MEDS ORDERED: oxyCODONE/APAP 5/325 1 TAB TABLET PO PRN (14:00)
[2017-09-22] MEDS ORDERED: INSULIN ASPART 100 UNIT/ML 10ML VIAL. SQ ONE (14:00)
--- NOTE | 2017-09-22 14:44 | PDOC ---
PROGRESS NOTES Chief Complaint Chief Complaint Acute abd pain with acute cholecystitis sepsis obesity BMI 3 vasomotor nephropathy moderate malnutrition hyperbili h/o gastric bypass sx dm2 morbid obesity plan: lap robby today cont home meds cont zosyn, dc vanco insulin added pain control labs tmr dvt, gi ppx History of Present Illness History of Present Illness sx today Vitals Vitals Vital Signs Date Time Temp Pulse Resp B/P (MAP) Pulse Ox O2 Delivery O2 Flow Rate FiO2 09/22/17 14:22 77 20 135/74 92 Room Air 09/22/17 14:19 10.0 09/22/17 13:37 98.1 98.1 Physical Exam General: Alert, Oriented X3, Cooperative Heart: Regular rate, Normal S1, Normal S2 Lungs: Clear Abdomen: Soft, Other (abd tenderness) Extremities: No clubbing, No cyanosis Skin: No rashes, No breakdown Labs LABS Laboratory Tests Test 09/21/17 16:55 09/21/17 17:27 09/22/17 04:05 09/22/17 04:08 Lactic Acid Level 1.5 mmol/L (0.4-2.0) Glucose (Fingerstick) 319 mg/dL (70-99) Sodium Level 130 mmol/L (136-145) Potassium Level 3.7 mmol/L (3.5-5.1) Chloride Level 99 mmol/L (98-107) Carbon Dioxide Level 23 mmol/L (21-32) Anion Gap 8 (6-14) Blood Urea Nitrogen 26 mg/dL (7-20) Creatinine 1.1 mg/dL (0.6-1.0) Estimated GFR (Cockcroft-Gault) 51.4 BUN/Creatinine Ratio 24 (6-20) Glucose Level 272 mg/dL (70-99) Calcium Level 8.5 mg/dL (8.5-10.1) Total Bilirubin 1.5 mg/dL (0.2-1.0) Aspartate Amino Transf (AST/SGOT) 20 U/L (15-37) Alanine Aminotransferase (ALT/SGPT) 25 U/L (14-59) Alkaline Phosphatase 134 U/L (46-116) Total Protein 5.8 g/dL (6.4-8.2) Albumin 2.1 g/dL (3.4-5.0) Albumin/Globulin Ratio 0.6 (1.0-1.7) White Blood Count 14.0 x10^3/uL (4.0-11.0) Red Blood Count 3.99 x10^6/uL (3.50-5.40) Hemoglobin 12.2 g/dL (12.0-15.5) Hematocrit 35.5 % (36.0-47.0) Mean Corpuscular Volume 89 fL (79-100) Mean Corpuscular Hemoglobin 31 pg (25-35) Mean Corpuscular Hemoglobin Concent 34 g/dL (31-37) Red Cell Distribution Width 13.2 % (11.5-14.5) Platelet Count 128 x10^3/uL (140-400) Neutrophils (%) (Auto) 90 % (31-73) Lymphocytes (%) (Auto) 3 % (24-48) Monocytes (%) (Auto) 8 % (0-9) Eosinophils (%) (Auto) 0 % (0-3) Basophils (%) (Auto) 0 % (0-3) Neutrophils # (Auto) 12.5 x10^3uL (1.8-7.7) Lymphocytes # (Auto) 0.4 x10^3/uL (1.0-4.8) Monocytes # (Auto) 1.1 x10^3/uL (0.0-1.1) Eosinophils # (Auto) 0.0 x10^3/uL (0.0-0.7) Basophils # (Auto) 0.0 x10^3/uL (0.0-0.2) Direct Bilirubin 1.0 mg/dL (0.0-0.2) Test 09/22/17 10:11 09/22/17 13:45 Glucose (Fingerstick) 280 mg/dL (70-99) 235 mg/dL (70-99) Assessment and Plan Assessmemt and Plan Problems Medical Problems: (1) Cholecystitis Status: Acute (2) Hyponatremia Status: Acute (3) Sepsis Status: Acute Comment Review of Relevant I have reviewed the following items colby (where applicable) has been applied. Labs Laboratory Tests Test 09/21/17 13:10 09/21/17 13:30 09/21/17 16:55 09/21/17 17:27 Urine Collection Type Unknown Urine Color Dk yellow Urine Clarity Cloudy Urine pH 5.0 Urine Specific [place] >=1.030 Urine Protein 100 mg/dL (NEG-TRACE) Urine Glucose (UA) >=1000 mg/dL (NEG) Urine Ketones (Stick) Trace mg/dL (NEG) Urine Blood Negative (NEG) Urine Nitrite Negative (NEG) Urine Bilirubin Moderate (NEG) Urine Urobilinogen Dipstick 1.0 mg/dL (0.2 mg/dL) Urine Leukocyte Esterase Trace (NEG) Urine RBC Occ /HPF (0-2) Urine WBC 1-4 /HPF (0-4) Urine Squamous Epithelial Cells Many /LPF Urine Bacteria Many /HPF (0-FEW) White Blood Count 23.1 x10^3/uL (4.0-11.0) Red Blood Count 4.85 x10^6/uL (3.50-5.40) Hemoglobin 14.9 g/dL (12.0-15.5) Hematocrit 43.4 % (36.0-47.0) Mean Corpuscular Volume 89 fL (79-100) Mean Corpuscular Hemoglobin 31 pg (25-35) Mean Corpuscular Hemoglobin Concent 34 g/dL (31-37) Red Cell Distribution Width 13.0 % (11.5-14.5) Platelet Count 185 x10^3/uL (140-400) Neutrophils (%) (Auto) 92 % (31-73) Lymphocytes (%) (Auto) 2 % (24-48) Monocytes (%) (Auto) 6 % (0-9) Eosinophils (%) (Auto) 0 % (0-3) Basophils (%) (Auto) 0 % (0-3) Neutrophils # (Auto) 21.3 x10^3uL (1.8-7.7) Lymphocytes # (Auto) 0.5 x10^3/uL (1.0-4.8) Monocytes # (Auto) 1.3 x10^3/uL (0.0-1.1) Eosinophils # (Auto) 0.0 x10^3/uL (0.0-0.7) Basophils # (Auto) 0.0 x10^3/uL (0.0-0.2) Segmented Neutrophils % 85 % (35-66) Band Neutrophils % 11 % (0-9) Lymphocytes % 1 % (24-48) Monocytes % 3 % (0-10) Toxic Granulation Slight Platelet Estimate Adequate (ADEQUATE) Sodium Level 125 mmol/L (136-145) Potassium Level 4.3 mmol/L (3.5-5.1) Chloride Level 91 mmol/L (98-107) Carbon Dioxide Level 25 mmol/L (21-32) Anion Gap 9 (6-14) Blood Urea Nitrogen 36 mg/dL (7-20) Creatinine 1.9 mg/dL (0.6-1.0) Estimated GFR (Cockcroft-Gault) 27.3 BUN/Creatinine Ratio 19 (6-20) Glucose Level 422 mg/dL (70-99) Calcium Level 9.9 mg/dL (8.5-10.1) Total Bilirubin 2.9 mg/dL (0.2-1.0) Aspartate Amino Transf (AST/SGOT) 21 U/L (15-37) Alanine Aminotransferase (ALT/SGPT) 33 U/L (14-59) Alkaline Phosphatase 181 U/L (46-116) Total Protein 7.6 g/dL (6.4-8.2) Albumin 3.0 g/dL (3.4-5.0) Albumin/Globulin Ratio 0.7 (1.0-1.7) Lipase 95 U/L (73-393) Ethyl Alcohol Level < 10 mg/dL (0-10) Lactic Acid Level 1.5 mmol/L (0.4-2.0) Glucose (Fingerstick) 319 mg/dL (70-99) Test 09/22/17 04:05 09/22/17 04:08 09/22/17 10:11 09/22/17 13:45 Sodium Level 130 mmol/L (136-145) Potassium Level 3.7 mmol/L (3.5-5.1) Chloride Level 99 mmol/L (98-107) Carbon Dioxide Level 23 mmol/L (21-32) Anion Gap 8 (6-14) Blood Urea Nitrogen 26 mg/dL (7-20) Creatinine 1.1 mg/dL (0.6-1.0) Estimated GFR (Cockcroft-Gault) 51.4 BUN/Creatinine Ratio 24 (6-20) Glucose Level 272 mg/dL (70-99) Calcium Level 8.5 mg/dL (8.5-10.1) Total Bilirubin 1.5 mg/dL (0.2-1.0) Aspartate Amino Transf (AST/SGOT) 20 U/L (15-37) Alanine Aminotransferase (ALT/SGPT) 25 U/L (14-59) Alkaline Phosphatase 134 U/L (46-116) Total Protein 5.8 g/dL (6.4-8.2) Albumin 2.1 g/dL (3.4-5.0) Albumin/Globulin Ratio 0.6 (1.0-1.7) White Blood Count 14.0 x10^3/uL (4.0-11.0) Red Blood Count 3.99 x10^6/uL (3.50-5.40) Hemoglobin 12.2 g/dL (12.0-15.5) Hematocrit 35.5 % (36.0-47.0) Mean Corpuscular Volume 89 fL (79-100) Mean Corpuscular Hemoglobin 31 pg (25-35) Mean Corpuscular Hemoglobin Concent 34 g/dL (31-37) Red Cell Distribution Width 13.2 % (11.5-14.5) Platelet Count 128 x10^3/uL (140-400) Neutrophils (%) (Auto) 90 % (31-73) Lymphocytes (%) (Auto) 3 % (24-48) Monocytes (%) (Auto) 8 % (0-9) Eosinophils (%) (Auto) 0 % (0-3) Basophils (%) (Auto) 0 % (0-3) Neutrophils # (Auto) 12.5 x10^3uL (1.8-7.7) Lymphocytes # (Auto) 0.4 x10^3/uL (1.0-4.8) Monocytes # (Auto) 1.1 x10^3/uL (0.0-1.1) Eosinophils # (Auto) 0.0 x10^3/uL (0.0-0.7) Basophils # (Auto) 0.0 x10^3/uL (0.0-0.2) Direct Bilirubin 1.0 mg/dL (0.0-0.2) Glucose (Fingerstick) 280 mg/dL (70-99) 235 mg/dL (70-99) Laboratory Tests Test 09/21/17 16:55 09/21/17 17:27 09/22/17 04:05 09/22/17 04:08 Lactic Acid Level 1.5 mmol/L (0.4-2.0) Glucose (Fingerstick) 319 mg/dL (70-99) Sodium Level 130 mmol/L (136-145) Potassium Level 3.7 mmol/L (3.5-5.1) Chloride Level 99 mmol/L (98-107) Carbon Dioxide Level 23 mmol/L (21-32) Anion Gap 8 (6-14) Blood Urea Nitrogen 26 mg/dL (7-20) Creatinine 1.1 mg/dL (0.6-1.0) Estimated GFR (Cockcroft-Gault) 51.4 BUN/Creatinine Ratio 24 (6-20) Glucose Level 272 mg/dL (70-99) Calcium Level 8.5 mg/dL (8.5-10.1) Total Bilirubin 1.5 mg/dL (0.2-1.0) Aspartate Amino Transf (AST/SGOT) 20 U/L (15-37) Alanine Aminotransferase (ALT/SGPT) 25 U/L (14-59) Alkaline Phosphatase 134 U/L (46-116) Total Protein 5.8 g/dL (6.4-8.2) Albumin 2.1 g/dL (3.4-5.0) Albumin/Globulin Ratio 0.6 (1.0-1.7) White Blood Count 14.0 x10^3/uL (4.0-11.0) Red Blood Count 3.99 x10^6/uL (3.50-5.40) Hemoglobin 12.2 g/dL (12.0-15.5) Hematocrit 35.5 % (36.0-47.0) Mean Corpuscular Volume 89 fL (79-100) Mean Corpuscular Hemoglobin 31 pg (25-35) Mean Corpuscular Hemoglobin Concent 34 g/dL (31-37) Red Cell Distribution Width 13.2 % (11.5-14.5) Platelet Count 128 x10^3/uL (140-400) Neutrophils (%) (Auto) 90 % (31-73) Lymphocytes (%) (Auto) 3 % (24-48) Monocytes (%) (Auto) 8 % (0-9) Eosinophils (%) (Auto) 0 % (0-3) Basophils (%) (Auto) 0 % (0-3) Neutrophils # (Auto) 12.5 x10^3uL (1.8-7.7) Lymphocytes # (Auto) 0.4 x10^3/uL (1.0-4.8) Monocytes # (Auto) 1.1 x10^3/uL (0.0-1.1) Eosinophils # (Auto) 0.0 x10^3/uL (0.0-0.7) Basophils # (Auto) 0.0 x10^3/uL (0.0-0.2) Direct Bilirubin 1.0 mg/dL (0.0-0.2) Test 09/22/17 10:11 09/22/17 13:45 Glucose (Fingerstick) 280 mg/dL (70-99) 235 mg/dL (70-99) Medications Current Medications Fentanyl Citrate (Fentanyl 2ml Vial) 50 mcg 1X ONCE IV Last administered on 12/29at 14:34; Start 09/21/17 at 13:45; Stop 09/21/17 at 13:46; Status DC Pantoprazole Sodium (PROTONIX VIAL for IV PUSH) 40 mg 1X ONCE IVP Last administered on 09/21/17at 13:45; Start 09/21/17 at 13:45; Stop 09/21/17 at 13:46 ; Status DC Ondansetron HCl (Zofran) 4 mg 1X ONCE IV Last administered on 09/21/17at 14:34 ; Start 09/21/17 at 13:45; Stop 09/21/17 at 13:46; Status DC Sodium Chloride 1,000 ml @ 1,000 mls/hr 1X ONCE IV Last administered on at 14:33; Start 09/21/17 at 13:45; Stop 09/21/17 at 14:44; Status DC Iohexol (Omnipaque 300 Mg/ml) 75 ml 1X ONCE IV Last administered on 09/21/17at 13:45; Start 09/21/17 at 13:45; Stop 09/21/17 at 13:46; Status DC Info (CONTRAST GIVEN -- Rx MONITORING) 1 each PRN DAILY PRN MC SEE COMMENTS; Start 09/21/17 at 13:45; Stop 09/23/17 at 13:44 Sodium Chloride 1,000 ml @ 1,000 mls/hr 1X ONCE IV Last administered on at 14:33; Start 09/21/17 at 14:00; Stop 09/21/17 at 14:59; Status DC Acetaminophen (Tylenol) 1,000 mg 1X ONCE PO Last administered on 09/21/17at 14: 34; Start 09/21/17 at 14:00; Stop 09/21/17 at 14:01; Status DC Sodium Chloride 1,000 ml @ 1,000 mls/hr 1X ONCE IV Last administered on at 16:18; Start 09/21/17 at 14:15; Stop 09/21/17 at 15:14; Status DC Clindamycin Phosphate 50 ml @ 100 mls/hr Q8HRS IV ; Start 09/21/17 at 22:00; Stop 09/21/17 at 22:00; Status DC Clindamycin Phosphate 50 ml @ 100 mls/hr 1X ONCE IV Last administered on 09/21at 16:18; Start 09/21/17 at 15:30; Stop 09/21/17 at 15:59; Status DC Vancomycin HCl (Vanco Per Pharmacy) 1 each PRN DAILY PRN MC SEE COMMENTS Last administered on 09/22/17at 11:33; Start 09/21/17 at 15:30 Vancomycin HCl 2 gm/Sodium Chloride 500 ml @ 250 mls/hr 1X ONCE IV Last administered on 09/21/17at 17:21; Start 09/21/17 at 15:30; Stop 09/21/17 at 17:29 ; Status DC Ondansetron HCl (Zofran) 4 mg PRN Q8HRS PRN IV NAUSEA/VOMITING; Start 09/21/17 at 16:15; Stop 09/22/17 at 16:14 Fentanyl Citrate (Fentanyl 2ml Vial) 50 mcg PRN Q2HR PRN IV PAIN Last administered on 09/22/17at 04:00; Start 09/21/17 at 16:15; Stop 09/22/17 at 16:14 Acetaminophen (Tylenol) 650 mg PRN Q4HRS PRN PO FEVER; Start 09/21/17 at 16:15 ; Stop 09/22/17 at 16:14 Sodium Chloride 1,000 ml @ 125 mls/hr 1X ONCE IV Last administered on at 17:33; Start 09/21/17 at 16:15; Stop 09/22/17 at 00:14; Status DC Vancomycin HCl 1.5 gm/Sodium Chloride 500 ml @ 250 mls/hr Q24H IV ; Start 09/22 at 18:00 Vancomycin HCl (Vancomycin Trough Level) 1 each 1X ONCE MC ; Start 09/23/17 at 17:30; Stop 09/23/17 at 17:31 Insulin Human Lispro (HumaLOG) 0-9 UNITS TIDWMEALS SQ Last administered on 09/21at 18:05; Start 09/21/17 at 18:00 Dextrose (Dextrose 50%-Water Syringe) 12.5 gm PRN Q15MIN PRN IV SEE COMMENTS; Start 09/21/17 at 17:30 Insulin Glargine (Lantus) 20 units QHS SQ ; Start 09/21/17 at 21:00 Insulin Human Lispro (HumaLOG) 10 units TIDWMEALS SQ ; Start 09/22/17 at 08:00 Insulin Human Lispro (HumaLOG) 20 units 1X ONCE SQ ; Start 09/21/17 at 17:30; Stop 09/21/17 at 17:31; Status UNV Piperacillin Sod/ Tazobactam Sod (Zosyn Per Pharmacy) 1 each PRN DAILY PRN MC SEE COMMENTS; Start 09/21/17 at 17:45 Piperacillin Sod/ Tazobactam Sod 2.25 gm/Sodium Chloride 50 ml @ 100 mls/hr Q6HRS IV Last administered on 09/22/17at 11:07; Start 09/21/17 at 19:00 Ondansetron HCl (Zofran) 4 mg PRN Q6HRS PRN IV NAUSEA/VOMITING; Start 09/22/17 at 09:15; Stop 09/23/17 at 09:14 Fentanyl Citrate (Fentanyl 2ml Vial) 25 mcg PRN Q5MIN PRN IV MILD PAIN; Start 09/22/17 at 09:15; Stop 09/23/17 at 09:14 Fentanyl Citrate (Fentanyl 2ml Vial) 50 mcg PRN Q5MIN PRN IV MODERATE TO SEVERE PAIN Last administered on 09/22/17at 14:19; Start 09/22/17 at 09:15; Stop 09/23/17 at 09:14 Morphine Sulfate (Morphine Sulfate) 1 mg PRN Q10MIN PRN IV SEVERE PAIN Last administered on 09/22/17at 14:03; Start 09/22/17 at 09:15; Stop 09/23/17 at 09:14 Ringer's Solution 1,000 ml @ 30 mls/hr Q24H IV Last administered on 09/22/17at 14:04; Start 09/22/17 at 09:05; Stop 09/22/17 at 21:04 Lidocaine HCl (Xylocaine-Mpf 1% Vial) 2 ml PRN 1X PRN ID PRIOR TO IV START; Start 09/22/17 at 09:15; Stop 09/23/17 at 09:14 Prochlorperazine Edisylate (Compazine) 5 mg PACU PRN PRN IV NAUSEA, MRX1 Last administered on 09/22/17at 14:02; Start 09/22/17 at 09:15; Stop 09/23/17 at 09:14 Glycopyrrolate (Robinul) 1 mg STK-MED ONCE .ROUTE ; Start 09/22/17 at 09:29; Stop 09/22/17 at 09:30; Status DC Sevoflurane (Ultane) 90 ml STK-MED ONCE IH ; Start 09/22/17 at 09:29; Stop 09/22 at 09:30; Status DC Rocuronium [place] (Zemuron) 50 mg STK-MED ONCE .ROUTE ; Start 09/22/17 at 09:29 ; Stop 09/22/17 at 09:30; Status DC Fentanyl Citrate (Fentanyl 2ml Vial) 100 mcg STK-MED ONCE .ROUTE ; Start at 09:29; Stop 09/22/17 at 09:30; Status DC Neostigmine Methylsulfate (Neostigmine Methylsulfate) 5 mg STK-MED ONCE .ROUTE ; Start 09/22/17 at 09:29; Stop 09/22/17 at 09:30; Status DC Midazolam HCl (Versed) 2 mg STK-MED ONCE .ROUTE ; Start 09/22/17 at 09:29; Stop 09/22/17 at 09:31; Status DC Propofol 20 ml @ As Directed STK-MED ONCE IV ; Start 09/22/17 at 09:30; Stop 01/28 at 09:31; Status DC Lidocaine HCl (Lidocaine Pf 2% Vial) 5 ml STK-MED ONCE .ROUTE ; Start 09/22/17 at 09:30; Stop 09/22/17 at 09:31; Status DC Dexamethasone Sodium Phosphate (Decadron) 20 mg STK-MED ONCE .ROUTE ; Start 01/28 at 09:30; Stop 09/22/17 at 09:31; Status DC Ondansetron HCl (Zofran) 4 mg STK-MED ONCE .ROUTE ; Start 09/22/17 at 09:30; Stop 09/22/17 at 09:31; Status DC Ketorolac Tromethamine (Toradol For Or Only) 30 mg STK-MED ONCE INJ ; Start 01/28 at 09:30; Stop 09/22/17 at 09:31; Status DC Ketorolac Tromethamine (Toradol For Or Only) 30 mg STK-MED ONCE INJ ; Start 01/28 at 09:30; Stop 09/22/17 at 09:31; Status DC Insulin Aspart (NovoLOG VIAL) 8 unit 1X PACU PRN SQ SEE COMMENTS Last administered on 09/22/17at 10:48; Start 09/22/17 at 10:45 Bupivacaine HCl/ Epinephrine Bitart (Marcaine-Epi 0.5%-[id number]) 50 ml STK-MED ONCE .ROUTE ; Start 09/22/17 at 09:52; Stop 09/22/17 at 10:54; Status DC Iohexol (Omnipaque 300 Mg/ml) 100 ml STK-MED ONCE .ROUTE Last administered on at 12:23; Start 09/22/17 at 09:53; Stop 09/22/17 at 10:54; Status DC Cellulose (Surgicel Hemostat 4x8) 1 each STK-MED ONCE .ROUTE Last administered on 09/22/17at 11:49; Start 09/22/17 at 09:53; Stop 09/22/17 at 10:54; Status DC Phenylephrine HCl (PHENYLEPHRINE in 0.9% NACL PF) 1 mg STK-MED ONCE IV ; Start 09/22/17 at 11:19; Stop 09/22/17 at 11:21; Status DC Rocuronium [place] (Zemuron) 100 mg STK-MED ONCE .ROUTE ; Start 09/22/17 at 11: 34; Stop 09/22/17 at 11:35; Status DC Fentanyl Citrate (Fentanyl 2ml Vial) 100 mcg STK-MED ONCE .ROUTE ; Start at 11:35; Stop 09/22/17 at 11:36; Status DC Insulin Aspart (NovoLOG VIAL) 6 unit 1X ONCE SQ Last administered on at 14:02; Start 09/22/17 at 14:00; Stop 09/22/17 at 14:01; Status DC Oxycodone/ Acetaminophen (Percocet 5/325) 1 tab PRN Q4HRS PRN PO PAIN; Start at 14:00 Oxycodone/ Acetaminophen (Percocet 5/325) 2 tab PRN Q4HRS PRN PO PAIN; Start at 14:00 Lactobacillus Rhamnosus (Culturelle) 1 cap BID PO ; Start 09/22/17 at 21:00 Active Scripts Active Reported Multivitamins (Multivitamin) 1 Each Tablet 1 Tab PO DAILY Lexapro (Escitalopram Oxalate) 20 Mg Tablet 1 Tab PO DAILY Spironolactone 50 Mg Tablet 1 Tab PO DAILY Carvedilol 3.125 Mg Tablet 1 Tab PO BID for HTN Vitals/I & O Vital Sign - Last 24 Hours 09/21/17 09/21/17 09/21/17 09/21/17 15:07 15:37 16:07 16:37 Pulse 90 88 96 96 B/P (MAP) 119/57 (77) 127/66 (86) 134/75 (94) 127/83 (98) Pulse Ox 96 95 95 97 O2 Delivery Room Air Room Air Room Air Room Air 09/21/17 09/21/17 09/21/17 09/21/17 17:25 17:30 19:00 20:00 Temp 99.1 99.2 99.1 99.2 Pulse 92 102 Resp 18 18 B/P (MAP) 110/76 (87) 105/70 (82) Pulse Ox 97 97 O2 Delivery Room Air Room Air Room Air Room Air 09/21/17 09/21/17 09/21/17 09/22/17 21:22 21:52 23:00 03:00 Temp 99.0 100.8 99.0 100.8 Pulse 101 103 Resp 16 16 20 18 B/P (MAP) 106/62 (77) 115/70 (85) Pulse Ox 96 96 O2 Delivery Room Air Room Air Room Air 09/22/17 09/22/17 09/22/17 09/22/17 04:00 07:28 10:27 13:37 Temp 98.7 97.8 98.1 98.7 97.8 98.1 Pulse 88 82 80 Resp 16 16 20 20 B/P (MAP) 105/71 (82) 129/75 155/85 Pulse Ox 96 95 100 O2 Delivery Room Air Room Air Room Air Simple Mask O2 Flow Rate 10 09/22/17 09/22/17 09/22/17 09/22/17 13:37 13:52 14:03 14:07 Pulse 77 72 Resp 20 20 20 B/P (MAP) 152/69 156/82 Pulse Ox 100 100 99 O2 Delivery Mask Simple Mask Simple Mask O2 Flow Rate 10 10 10.0 10 09/22/17 09/22/17 14:19 14:22 Pulse 77 Resp 20 20 B/P (MAP) 135/74 Pulse Ox 100 92 O2 Delivery Simple Mask Room Air O2 Flow Rate 10.0 Intake and Output 09/21/17 09/21/17 09/22/17 15:00 23:00 07:00 Intake Total 3050 ml Balance 3050 ml BRUCE DASILVA MD Sep 22, 2017 14:44
[2017-09-22] MEDS ORDERED: hydrALAZINE 20 MG/ML VIAL. IVP PRN (14:45)
[2017-09-22] MEDS ORDERED: DOCUSATE SODIUM 100 MG CAPSULE. PO PRN (14:45)
[2017-09-22] MEDS ORDERED: ACETAMINOPHEN 325 MG TABLET. PO PRN (14:45)
[2017-09-22] MEDS ORDERED: traMADol 50 MG TABLET PO PRN (14:45)
[2017-09-22] MEDS: CARVEDILOL 3.125 MG TABLET. PO SCH (17:28)
[2017-09-22] MEDS: IV NORMAL SALINE 1000ML BAG 1,000 ML IV SCH (17:29)
[2017-09-22] MEDS: SPIRONOLACTONE 25 MG TABLET PO SCH (17:29)
[2017-09-22] MEDS: CITALOPRAM 20 MG TABLET. PO SCH (17:29)
[2017-09-22] MEDS ORDERED: VANCOMYCIN 1.5 GM in IV NORMAL SALINE 500ML BAG 500 ML IV SCH (18:00)
[2017-09-22] MEDS: MORPHINE SULFATE 2 MG/ML DISP.SYRIN. IV PRN (18:32)
[2017-09-22 19:14] LABS: HEMOGLOBIN A1C 9.8 % (4.8-5.6)
[2017-09-22] MEDS ORDERED: FAMOTIDINE 20 MG/2 ML VIAL IVP SCH (21:00)
[2017-09-22] MEDS: LACTOBACILLUS RHAMNOSUS GG 1 CAPSULE. PO SCH (21:48)
[2017-09-22] MEDS: INSULIN GLARGINE 300 UNITS/3 ML INSULN.PEN. SQ SCH (21:50)
[2017-09-22] MEDS: HEPARIN PF for SUB-Q USE 5,000 UNIT/0.5 ML VIAL. SQ SCH (21:50)
[2017-09-23] MEDS: PIPERACILLIN/TAZOBACTAM 2.25 GM in IV NORMAL SALINE 50ML 50 ML IV SCH ×2 (00:24→06:02)
[2017-09-23 01:26] LABS: AMPHETAMINE/METHAMPHETAMINE NEG (NEG); BARBITURATES NEG (NEG); BENZODIAZEPINES POS (NEG); CANNABINOIDS NEG (NEG); COCAINE NEG (NEG); METHADONE NEG (NEG); OPIATES POS (NEG); PHENCYCLIDINE NEG (NEG)
[2017-09-23] MEDS: MORPHINE SULFATE 2 MG/ML DISP.SYRIN. IV PRN (02:16)
[2017-09-23 03:00] VITALS: BP 116/66
[2017-09-23] MEDS: oxyCODONE/APAP 5/325 1 TAB TABLET PO PRN ×2 (04:17→21:00)
[2017-09-23 04:28] LABS: BASO % 0 % (0-3); EOS % 0 % (0-3); HEMATOCRIT 33.5 % (36.0-47.0); HEMOGLOBIN 11.6 g/dL (12.0-15.5); LYMPH # 0.2 x10^3/uL (1.0-4.8); LYMPH % 2 % (24-48); MEAN CORPUSCULAR HEMOGLOBIN 31 pg (25-35); MEAN CORPUSCULAR HGB CONC 35 g/dL (31-37); MEAN CORPUSCULAR VOLUME 90 fL (79-100); MONO % 10 % (0-9); NEUT # 8.9 x10^3uL (1.8-7.7); NEUT % 88 % (31-73); PLATELET COUNT 138 x10^3/uL (140-400); RED BLOOD COUNT 3.73 x10^6/uL (3.50-5.40); RED CELL DISTRIBUTION WIDTH 13.6 % (11.5-14.5); WHITE BLOOD COUNT 10.2 x10^3/uL (4.0-11.0)
[2017-09-23 04:52] LABS: ALBUMIN 1.8 g/dL (3.4-5.0); CALCIUM 8.6 mg/dL (8.5-10.1); CREATININE 1.1 mg/dL (0.6-1.0); DIRECT BILIRUBIN 0.7 mg/dL (0.0-0.2); GFR 51.4; POTASSIUM 4.1 mmol/L (3.5-5.1); TOTAL BILIRUBIN 1.1 mg/dL (0.2-1.0); TOTAL PROTEIN 5.6 g/dL (6.4-8.2)
[2017-09-23] MEDS: IV NORMAL SALINE 1000ML BAG 1,000 ML IV SCH ×2 (06:02→16:34)
[2017-09-23] MEDS: HEPARIN PF for SUB-Q USE 5,000 UNIT/0.5 ML VIAL. SQ SCH ×3 (06:09→20:50)
[2017-09-23 07:00] VITALS: BP 105/60
[2017-09-23] MEDS: INSULIN LISPRO 300 UNITS/3 ML INSULN.PEN. SQ SCH ×6 (08:00→16:52)
[2017-09-23] MEDS: CARVEDILOL 3.125 MG TABLET. PO SCH ×2 (08:00→16:52)
[2017-09-23] MEDS: CITALOPRAM 20 MG TABLET. PO SCH (08:30)
[2017-09-23] MEDS: LACTOBACILLUS RHAMNOSUS GG 1 CAPSULE. PO SCH ×2 (08:30→20:47)
[2017-09-23] MEDS: SPIRONOLACTONE 25 MG TABLET PO SCH (08:38)
--- NOTE | 2017-09-23 08:50 | PDOC ---
TRAVIS CARRERA LENS INSERTER 09/23/17 0850: SURGICAL PROGRESS NOTE Subjective tolerating diet pain much better no emesis Vital Signs Vital Signs Date Time Temp Pulse Resp B/P (MAP) Pulse Ox O2 Delivery O2 Flow Rate FiO2 09/23/17 08:00 61 105/60 09/23/17 07:00 98.3 16 93 Nasal Cannula 2.0 98.3 I&O Intake and Output 09/23/17 07:00 Intake Total 2905 ml Output Total 675 ml Balance 2230 ml Intake Oral 380 ml IV Total 2525 ml Output Urine Total 350 ml Drainage Total 175 ml Estimated Blood Loss 150 ml General: Alert, Oriented X3, Cooperative, No acute distress Abdomen: Soft, Other (ND, lap dressings dry, rajeev bilious tinged ) Labs Laboratory Tests Test 09/21/17 13:10 09/21/17 13:30 09/21/17 16:55 09/21/17 17:27 Urine Collection Type Unknown Urine Color Dk yellow Urine Clarity Cloudy Urine pH 5.0 Urine Specific [employer] >=1.030 Urine Protein 100 mg/dL (NEG-TRACE) Urine Glucose (UA) >=1000 mg/dL (NEG) Urine Ketones (Stick) Trace mg/dL (NEG) Urine Blood Negative (NEG) Urine Nitrite Negative (NEG) Urine Bilirubin Moderate (NEG) Urine Urobilinogen Dipstick 1.0 mg/dL (0.2 mg/dL) Urine Leukocyte Esterase Trace (NEG) Urine RBC Occ /HPF (0-2) Urine WBC 1-4 /HPF (0-4) Urine Squamous Epithelial Cells Many /LPF Urine Bacteria Many /HPF (0-FEW) White Blood Count 23.1 x10^3/uL (4.0-11.0) Red Blood Count 4.85 x10^6/uL (3.50-5.40) Hemoglobin 14.9 g/dL (12.0-15.5) Hematocrit 43.4 % (36.0-47.0) Mean Corpuscular Volume 89 fL (79-100) Mean Corpuscular Hemoglobin 31 pg (25-35) Mean Corpuscular Hemoglobin Concent 34 g/dL (31-37) Red Cell Distribution Width 13.0 % (11.5-14.5) Platelet Count 185 x10^3/uL (140-400) Neutrophils (%) (Auto) 92 % (31-73) Lymphocytes (%) (Auto) 2 % (24-48) Monocytes (%) (Auto) 6 % (0-9) Eosinophils (%) (Auto) 0 % (0-3) Basophils (%) (Auto) 0 % (0-3) Neutrophils # (Auto) 21.3 x10^3uL (1.8-7.7) Lymphocytes # (Auto) 0.5 x10^3/uL (1.0-4.8) Monocytes # (Auto) 1.3 x10^3/uL (0.0-1.1) Eosinophils # (Auto) 0.0 x10^3/uL (0.0-0.7) Basophils # (Auto) 0.0 x10^3/uL (0.0-0.2) Segmented Neutrophils % 85 % (35-66) Band Neutrophils % 11 % (0-9) Lymphocytes % 1 % (24-48) Monocytes % 3 % (0-10) Toxic Granulation Slight Platelet Estimate Adequate (ADEQUATE) Sodium Level 125 mmol/L (136-145) Potassium Level 4.3 mmol/L (3.5-5.1) Chloride Level 91 mmol/L (98-107) Carbon Dioxide Level 25 mmol/L (21-32) Anion Gap 9 (6-14) Blood Urea Nitrogen 36 mg/dL (7-20) Creatinine 1.9 mg/dL (0.6-1.0) Estimated GFR (Cockcroft-Gault) 27.3 BUN/Creatinine Ratio 19 (6-20) Glucose Level 422 mg/dL (70-99) Calcium Level 9.9 mg/dL (8.5-10.1) Total Bilirubin 2.9 mg/dL (0.2-1.0) Aspartate Amino Transf (AST/SGOT) 21 U/L (15-37) Alanine Aminotransferase (ALT/SGPT) 33 U/L (14-59) Alkaline Phosphatase 181 U/L (46-116) Total Protein 7.6 g/dL (6.4-8.2) Albumin 3.0 g/dL (3.4-5.0) Albumin/Globulin Ratio 0.7 (1.0-1.7) Lipase 95 U/L (73-393) Ethyl Alcohol Level < 10 mg/dL (0-10) Lactic Acid Level 1.5 mmol/L (0.4-2.0) Glucose (Fingerstick) 319 mg/dL (70-99) Test 09/22/17 04:05 09/22/17 04:08 09/22/17 10:11 09/22/17 13:45 Sodium Level 130 mmol/L (136-145) Potassium Level 3.7 mmol/L (3.5-5.1) Chloride Level 99 mmol/L (98-107) Carbon Dioxide Level 23 mmol/L (21-32) Anion Gap 8 (6-14) Blood Urea Nitrogen 26 mg/dL (7-20) Creatinine 1.1 mg/dL (0.6-1.0) Estimated GFR (Cockcroft-Gault) 51.4 BUN/Creatinine Ratio 24 (6-20) Glucose Level 272 mg/dL (70-99) Calcium Level 8.5 mg/dL (8.5-10.1) Total Bilirubin 1.5 mg/dL (0.2-1.0) Aspartate Amino Transf (AST/SGOT) 20 U/L (15-37) Alanine Aminotransferase (ALT/SGPT) 25 U/L (14-59) Alkaline Phosphatase 134 U/L (46-116) Total Protein 5.8 g/dL (6.4-8.2) Albumin 2.1 g/dL (3.4-5.0) Albumin/Globulin Ratio 0.6 (1.0-1.7) White Blood Count 14.0 x10^3/uL (4.0-11.0) Red Blood Count 3.99 x10^6/uL (3.50-5.40) Hemoglobin 12.2 g/dL (12.0-15.5) Hematocrit 35.5 % (36.0-47.0) Mean Corpuscular Volume 89 fL (79-100) Mean Corpuscular Hemoglobin 31 pg (25-35) Mean Corpuscular Hemoglobin Concent 34 g/dL (31-37) Red Cell Distribution Width 13.2 % (11.5-14.5) Platelet Count 128 x10^3/uL (140-400) Neutrophils (%) (Auto) 90 % (31-73) Lymphocytes (%) (Auto) 3 % (24-48) Monocytes (%) (Auto) 8 % (0-9) Eosinophils (%) (Auto) 0 % (0-3) Basophils (%) (Auto) 0 % (0-3) Neutrophils # (Auto) 12.5 x10^3uL (1.8-7.7) Lymphocytes # (Auto) 0.4 x10^3/uL (1.0-4.8) Monocytes # (Auto) 1.1 x10^3/uL (0.0-1.1) Eosinophils # (Auto) 0.0 x10^3/uL (0.0-0.7) Basophils # (Auto) 0.0 x10^3/uL (0.0-0.2) Hemoglobin A1c 9.8 % (4.8-5.6) Direct Bilirubin 1.0 mg/dL (0.0-0.2) Glucose (Fingerstick) 280 mg/dL (70-99) 235 mg/dL (70-99) Test 09/22/17 17:00 09/22/17 20:41 09/23/17 03:35 09/23/17 07:25 Glucose (Fingerstick) 210 mg/dL (70-99) 326 mg/dL (70-99) 296 mg/dL (70-99) White Blood Count 10.2 x10^3/uL (4.0-11.0) Red Blood Count 3.73 x10^6/uL (3.50-5.40) Hemoglobin 11.6 g/dL (12.0-15.5) Hematocrit 33.5 % (36.0-47.0) Mean Corpuscular Volume 90 fL (79-100) Mean Corpuscular Hemoglobin 31 pg (25-35) Mean Corpuscular Hemoglobin Concent 35 g/dL (31-37) Red Cell Distribution Width 13.6 % (11.5-14.5) Platelet Count 138 x10^3/uL (140-400) Neutrophils (%) (Auto) 88 % (31-73) Lymphocytes (%) (Auto) 2 % (24-48) Monocytes (%) (Auto) 10 % (0-9) Eosinophils (%) (Auto) 0 % (0-3) Basophils (%) (Auto) 0 % (0-3) Neutrophils # (Auto) 8.9 x10^3uL (1.8-7.7) Lymphocytes # (Auto) 0.2 x10^3/uL (1.0-4.8) Monocytes # (Auto) 1.0 x10^3/uL (0.0-1.1) Eosinophils # (Auto) 0.0 x10^3/uL (0.0-0.7) Basophils # (Auto) 0.0 x10^3/uL (0.0-0.2) Sodium Level 130 mmol/L (136-145) Potassium Level 4.1 mmol/L (3.5-5.1) Chloride Level 98 mmol/L (98-107) Carbon Dioxide Level 22 mmol/L (21-32) Anion Gap 10 (6-14) Blood Urea Nitrogen 28 mg/dL (7-20) Creatinine 1.1 mg/dL (0.6-1.0) Estimated GFR (Cockcroft-Gault) 51.4 Glucose Level 334 mg/dL (70-99) Calcium Level 8.6 mg/dL (8.5-10.1) Total Bilirubin 1.1 mg/dL (0.2-1.0) Direct Bilirubin 0.7 mg/dL (0.0-0.2) Aspartate Amino Transf (AST/SGOT) 31 U/L (15-37) Alanine Aminotransferase (ALT/SGPT) 35 U/L (14-59) Alkaline Phosphatase 123 U/L (46-116) Total Protein 5.6 g/dL (6.4-8.2) Albumin 1.8 g/dL (3.4-5.0) Laboratory Tests Test 09/22/17 10:11 09/22/17 13:45 09/22/17 17:00 09/22/17 20:41 Glucose (Fingerstick) 280 mg/dL (70-99) 235 mg/dL (70-99) 210 mg/dL (70-99) 326 mg/dL (70-99) Test 09/23/17 03:35 09/23/17 07:25 White Blood Count 10.2 x10^3/uL (4.0-11.0) Red Blood Count 3.73 x10^6/uL (3.50-5.40) Hemoglobin 11.6 g/dL (12.0-15.5) Hematocrit 33.5 % (36.0-47.0) Mean Corpuscular Volume 90 fL (79-100) Mean Corpuscular Hemoglobin 31 pg (25-35) Mean Corpuscular Hemoglobin Concent 35 g/dL (31-37) Red Cell Distribution Width 13.6 % (11.5-14.5) Platelet Count 138 x10^3/uL (140-400) Neutrophils (%) (Auto) 88 % (31-73) Lymphocytes (%) (Auto) 2 % (24-48) Monocytes (%) (Auto) 10 % (0-9) Eosinophils (%) (Auto) 0 % (0-3) Basophils (%) (Auto) 0 % (0-3) Neutrophils # (Auto) 8.9 x10^3uL (1.8-7.7) Lymphocytes # (Auto) 0.2 x10^3/uL (1.0-4.8) Monocytes # (Auto) 1.0 x10^3/uL (0.0-1.1) Eosinophils # (Auto) 0.0 x10^3/uL (0.0-0.7) Basophils # (Auto) 0.0 x10^3/uL (0.0-0.2) Sodium Level 130 mmol/L (136-145) Potassium Level 4.1 mmol/L (3.5-5.1) Chloride Level 98 mmol/L (98-107) Carbon Dioxide Level 22 mmol/L (21-32) Anion Gap 10 (6-14) Blood Urea Nitrogen 28 mg/dL (7-20) Creatinine 1.1 mg/dL (0.6-1.0) Estimated GFR (Cockcroft-Gault) 51.4 Glucose Level 334 mg/dL (70-99) Calcium Level 8.6 mg/dL (8.5-10.1) Total Bilirubin 1.1 mg/dL (0.2-1.0) Direct Bilirubin 0.7 mg/dL (0.0-0.2) Aspartate Amino Transf (AST/SGOT) 31 U/L (15-37) Alanine Aminotransferase (ALT/SGPT) 35 U/L (14-59) Alkaline Phosphatase 123 U/L (46-116) Total Protein 5.6 g/dL (6.4-8.2) Albumin 1.8 g/dL (3.4-5.0) Glucose (Fingerstick) 296 mg/dL (70-99) Problem List Problems Medical Problems: (1) Cholecystitis Status: Acute (2) Hyponatremia Status: Acute (3) Sepsis Status: Acute Assessment/Plan s/p robby continue drain, d/w dr Mooney labs improved KAREN MOONEY MD 09/23/17 1228: SURGICAL PROGRESS NOTE Assessment/Plan clinically improved; keep RAJEEV intact TRAVIS CARRERA APRN Sep 23, 2017 08:50 KAREN MOONEY MD Sep 23, 2017 12:28
--- NOTE | 2017-09-23 09:34 | PDOC ---
PROGRESS NOTES Chief Complaint Chief Complaint s/post cholecystectomy, laparoscopically-09/22/17 NEAL, VMN Hyponatremia HTN controlled DM 2 controlled History of Present Illness History of Present Illness Postop pain under control 1 indwelling RAJEEV drain and will likely most likely go home with it 4-5 laparoscopic wounds, passing gas Tolerating diet Ambulating to the bathroom Sodium better, 1:30 now from 125 and admission Plan: Continue IVF, because of the hyponatremia then maybe to consume Can check TSH for the hyponatremia 1 more day here with us then aim discharge tomorrow Vitals Vitals Vital Signs Date Time Temp Pulse Resp B/P (MAP) Pulse Ox O2 Delivery O2 Flow Rate FiO2 09/23/17 08:00 61 105/60 09/23/17 07:00 98.3 16 93 Nasal Cannula 2.0 98.3 Physical Exam General: Alert, Oriented X3, Cooperative, No acute distress Heart: Regular rate, Normal S1, Normal S2 Lungs: Clear Abdomen: Soft, Other (ND, lap dressings dry, rajeev bilious tinged ) Extremities: No clubbing, No cyanosis Skin: No rashes, No breakdown Labs LABS Laboratory Tests Test 09/22/17 10:11 09/22/17 13:45 09/22/17 17:00 09/22/17 20:41 Glucose (Fingerstick) 280 mg/dL (70-99) 235 mg/dL (70-99) 210 mg/dL (70-99) 326 mg/dL (70-99) Test 09/23/17 03:35 09/23/17 07:25 White Blood Count 10.2 x10^3/uL (4.0-11.0) Red Blood Count 3.73 x10^6/uL (3.50-5.40) Hemoglobin 11.6 g/dL (12.0-15.5) Hematocrit 33.5 % (36.0-47.0) Mean Corpuscular Volume 90 fL (79-100) Mean Corpuscular Hemoglobin 31 pg (25-35) Mean Corpuscular Hemoglobin Concent 35 g/dL (31-37) Red Cell Distribution Width 13.6 % (11.5-14.5) Platelet Count 138 x10^3/uL (140-400) Neutrophils (%) (Auto) 88 % (31-73) Lymphocytes (%) (Auto) 2 % (24-48) Monocytes (%) (Auto) 10 % (0-9) Eosinophils (%) (Auto) 0 % (0-3) Basophils (%) (Auto) 0 % (0-3) Neutrophils # (Auto) 8.9 x10^3uL (1.8-7.7) Lymphocytes # (Auto) 0.2 x10^3/uL (1.0-4.8) Monocytes # (Auto) 1.0 x10^3/uL (0.0-1.1) Eosinophils # (Auto) 0.0 x10^3/uL (0.0-0.7) Basophils # (Auto) 0.0 x10^3/uL (0.0-0.2) Sodium Level 130 mmol/L (136-145) Potassium Level 4.1 mmol/L (3.5-5.1) Chloride Level 98 mmol/L (98-107) Carbon Dioxide Level 22 mmol/L (21-32) Anion Gap 10 (6-14) Blood Urea Nitrogen 28 mg/dL (7-20) Creatinine 1.1 mg/dL (0.6-1.0) Estimated GFR (Cockcroft-Gault) 51.4 Glucose Level 334 mg/dL (70-99) Calcium Level 8.6 mg/dL (8.5-10.1) Total Bilirubin 1.1 mg/dL (0.2-1.0) Direct Bilirubin 0.7 mg/dL (0.0-0.2) Aspartate Amino Transf (AST/SGOT) 31 U/L (15-37) Alanine Aminotransferase (ALT/SGPT) 35 U/L (14-59) Alkaline Phosphatase 123 U/L (46-116) Total Protein 5.6 g/dL (6.4-8.2) Albumin 1.8 g/dL (3.4-5.0) Glucose (Fingerstick) 296 mg/dL (70-99) Review of Systems Review of Systems A 14 point ROS was completed with the following noted as positive: Other systems reviewed and negative. \CONSTITUTIONAL: No fever or chills EYES: No recent changes SKIN: No rash or itching CARDIOVASCULAR: No chest pain, syncope, palpitations, or edema RESPIRATORY: No SOB or cough GASTROINTESTINAL: No nausea, vomiting or abdominal pain NEUROLOGICAL: No headaches or weakness ENDOCRINE: No cold or heat intolerance GENITOURINARY: No urgency or frequency of urination MUSCULOSKELETAL: No back pain or joint pain LYMPHATICS: No enlarged lymph nodes PSYCHIATRIC: No anxiety or depression Assessment and Plan Assessmemt and Plan Problems Medical Problems: (1) Cholecystitis Status: Acute (2) Hyponatremia Status: Acute (3) Sepsis Status: Acute Comment Review of Relevant I have reviewed the following items colby (where applicable) has been applied. Labs Laboratory Tests Test 09/21/17 13:10 09/21/17 13:30 09/21/17 16:55 09/21/17 17:27 Urine Collection Type Unknown Urine Color Dk yellow Urine Clarity Cloudy Urine pH 5.0 Urine Specific [place] >=1.030 Urine Protein 100 mg/dL (NEG-TRACE) Urine Glucose (UA) >=1000 mg/dL (NEG) Urine Ketones (Stick) Trace mg/dL (NEG) Urine Blood Negative (NEG) Urine Nitrite Negative (NEG) Urine Bilirubin Moderate (NEG) Urine Urobilinogen Dipstick 1.0 mg/dL (0.2 mg/dL) Urine Leukocyte Esterase Trace (NEG) Urine RBC Occ /HPF (0-2) Urine WBC 1-4 /HPF (0-4) Urine Squamous Epithelial Cells Many /LPF Urine Bacteria Many /HPF (0-FEW) White Blood Count 23.1 x10^3/uL (4.0-11.0) Red Blood Count 4.85 x10^6/uL (3.50-5.40) Hemoglobin 14.9 g/dL (12.0-15.5) Hematocrit 43.4 % (36.0-47.0) Mean Corpuscular Volume 89 fL (79-100) Mean Corpuscular Hemoglobin 31 pg (25-35) Mean Corpuscular Hemoglobin Concent 34 g/dL (31-37) Red Cell Distribution Width 13.0 % (11.5-14.5) Platelet Count 185 x10^3/uL (140-400) Neutrophils (%) (Auto) 92 % (31-73) Lymphocytes (%) (Auto) 2 % (24-48) Monocytes (%) (Auto) 6 % (0-9) Eosinophils (%) (Auto) 0 % (0-3) Basophils (%) (Auto) 0 % (0-3) Neutrophils # (Auto) 21.3 x10^3uL (1.8-7.7) Lymphocytes # (Auto) 0.5 x10^3/uL (1.0-4.8) Monocytes # (Auto) 1.3 x10^3/uL (0.0-1.1) Eosinophils # (Auto) 0.0 x10^3/uL (0.0-0.7) Basophils # (Auto) 0.0 x10^3/uL (0.0-0.2) Segmented Neutrophils % 85 % (35-66) Band Neutrophils % 11 % (0-9) Lymphocytes % 1 % (24-48) Monocytes % 3 % (0-10) Toxic Granulation Slight Platelet Estimate Adequate (ADEQUATE) Sodium Level 125 mmol/L (136-145) Potassium Level 4.3 mmol/L (3.5-5.1) Chloride Level 91 mmol/L (98-107) Carbon Dioxide Level 25 mmol/L (21-32) Anion Gap 9 (6-14) Blood Urea Nitrogen 36 mg/dL (7-20) Creatinine 1.9 mg/dL (0.6-1.0) Estimated GFR (Cockcroft-Gault) 27.3 BUN/Creatinine Ratio 19 (6-20) Glucose Level 422 mg/dL (70-99) Calcium Level 9.9 mg/dL (8.5-10.1) Total Bilirubin 2.9 mg/dL (0.2-1.0) Aspartate Amino Transf (AST/SGOT) 21 U/L (15-37) Alanine Aminotransferase (ALT/SGPT) 33 U/L (14-59) Alkaline Phosphatase 181 U/L (46-116) Total Protein 7.6 g/dL (6.4-8.2) Albumin 3.0 g/dL (3.4-5.0) Albumin/Globulin Ratio 0.7 (1.0-1.7) Lipase 95 U/L (73-393) Ethyl Alcohol Level < 10 mg/dL (0-10) Lactic Acid Level 1.5 mmol/L (0.4-2.0) Glucose (Fingerstick) 319 mg/dL (70-99) Test 09/22/17 04:05 09/22/17 04:08 09/22/17 10:11 09/22/17 13:45 Sodium Level 130 mmol/L (136-145) Potassium Level 3.7 mmol/L (3.5-5.1) Chloride Level 99 mmol/L (98-107) Carbon Dioxide Level 23 mmol/L (21-32) Anion Gap 8 (6-14) Blood Urea Nitrogen 26 mg/dL (7-20) Creatinine 1.1 mg/dL (0.6-1.0) Estimated GFR (Cockcroft-Gault) 51.4 BUN/Creatinine Ratio 24 (6-20) Glucose Level 272 mg/dL (70-99) Calcium Level 8.5 mg/dL (8.5-10.1) Total Bilirubin 1.5 mg/dL (0.2-1.0) Aspartate Amino Transf (AST/SGOT) 20 U/L (15-37) Alanine Aminotransferase (ALT/SGPT) 25 U/L (14-59) Alkaline Phosphatase 134 U/L (46-116) Total Protein 5.8 g/dL (6.4-8.2) Albumin 2.1 g/dL (3.4-5.0) Albumin/Globulin Ratio 0.6 (1.0-1.7) White Blood Count 14.0 x10^3/uL (4.0-11.0) Red Blood Count 3.99 x10^6/uL (3.50-5.40) Hemoglobin 12.2 g/dL (12.0-15.5) Hematocrit 35.5 % (36.0-47.0) Mean Corpuscular Volume 89 fL (79-100) Mean Corpuscular Hemoglobin 31 pg (25-35) Mean Corpuscular Hemoglobin Concent 34 g/dL (31-37) Red Cell Distribution Width 13.2 % (11.5-14.5) Platelet Count 128 x10^3/uL (140-400) Neutrophils (%) (Auto) 90 % (31-73) Lymphocytes (%) (Auto) 3 % (24-48) Monocytes (%) (Auto) 8 % (0-9) Eosinophils (%) (Auto) 0 % (0-3) Basophils (%) (Auto) 0 % (0-3) Neutrophils # (Auto) 12.5 x10^3uL (1.8-7.7) Lymphocytes # (Auto) 0.4 x10^3/uL (1.0-4.8) Monocytes # (Auto) 1.1 x10^3/uL (0.0-1.1) Eosinophils # (Auto) 0.0 x10^3/uL (0.0-0.7) Basophils # (Auto) 0.0 x10^3/uL (0.0-0.2) Hemoglobin A1c 9.8 % (4.8-5.6) Direct Bilirubin 1.0 mg/dL (0.0-0.2) Glucose (Fingerstick) 280 mg/dL (70-99) 235 mg/dL (70-99) Test 09/22/17 17:00 09/22/17 20:41 09/23/17 03:35 09/23/17 07:25 Glucose (Fingerstick) 210 mg/dL (70-99) 326 mg/dL (70-99) 296 mg/dL (70-99) White Blood Count 10.2 x10^3/uL (4.0-11.0) Red Blood Count 3.73 x10^6/uL (3.50-5.40) Hemoglobin 11.6 g/dL (12.0-15.5) Hematocrit 33.5 % (36.0-47.0) Mean Corpuscular Volume 90 fL (79-100) Mean Corpuscular Hemoglobin 31 pg (25-35) Mean Corpuscular Hemoglobin Concent 35 g/dL (31-37) Red Cell Distribution Width 13.6 % (11.5-14.5) Platelet Count 138 x10^3/uL (140-400) Neutrophils (%) (Auto) 88 % (31-73) Lymphocytes (%) (Auto) 2 % (24-48) Monocytes (%) (Auto) 10 % (0-9) Eosinophils (%) (Auto) 0 % (0-3) Basophils (%) (Auto) 0 % (0-3) Neutrophils # (Auto) 8.9 x10^3uL (1.8-7.7) Lymphocytes # (Auto) 0.2 x10^3/uL (1.0-4.8) Monocytes # (Auto) 1.0 x10^3/uL (0.0-1.1) Eosinophils # (Auto) 0.0 x10^3/uL (0.0-0.7) Basophils # (Auto) 0.0 x10^3/uL (0.0-0.2) Sodium Level 130 mmol/L (136-145) Potassium Level 4.1 mmol/L (3.5-5.1) Chloride Level 98 mmol/L (98-107) Carbon Dioxide Level 22 mmol/L (21-32) Anion Gap 10 (6-14) Blood Urea Nitrogen 28 mg/dL (7-20) Creatinine 1.1 mg/dL (0.6-1.0) Estimated GFR (Cockcroft-Gault) 51.4 Glucose Level 334 mg/dL (70-99) Calcium Level 8.6 mg/dL (8.5-10.1) Total Bilirubin 1.1 mg/dL (0.2-1.0) Direct Bilirubin 0.7 mg/dL (0.0-0.2) Aspartate Amino Transf (AST/SGOT) 31 U/L (15-37) Alanine Aminotransferase (ALT/SGPT) 35 U/L (14-59) Alkaline Phosphatase 123 U/L (46-116) Total Protein 5.6 g/dL (6.4-8.2) Albumin 1.8 g/dL (3.4-5.0) Laboratory Tests Test 09/22/17 10:11 09/22/17 13:45 09/22/17 17:00 09/22/17 20:41 Glucose (Fingerstick) 280 mg/dL (70-99) 235 mg/dL (70-99) 210 mg/dL (70-99) 326 mg/dL (70-99) Test 09/23/17 03:35 09/23/17 07:25 White Blood Count 10.2 x10^3/uL (4.0-11.0) Red Blood Count 3.73 x10^6/uL (3.50-5.40) Hemoglobin 11.6 g/dL (12.0-15.5) Hematocrit 33.5 % (36.0-47.0) Mean Corpuscular Volume 90 fL (79-100) Mean Corpuscular Hemoglobin 31 pg (25-35) Mean Corpuscular Hemoglobin Concent 35 g/dL (31-37) Red Cell Distribution Width 13.6 % (11.5-14.5) Platelet Count 138 x10^3/uL (140-400) Neutrophils (%) (Auto) 88 % (31-73) Lymphocytes (%) (Auto) 2 % (24-48) Monocytes (%) (Auto) 10 % (0-9) Eosinophils (%) (Auto) 0 % (0-3) Basophils (%) (Auto) 0 % (0-3) Neutrophils # (Auto) 8.9 x10^3uL (1.8-7.7) Lymphocytes # (Auto) 0.2 x10^3/uL (1.0-4.8) Monocytes # (Auto) 1.0 x10^3/uL (0.0-1.1) Eosinophils # (Auto) 0.0 x10^3/uL (0.0-0.7) Basophils # (Auto) 0.0 x10^3/uL (0.0-0.2) Sodium Level 130 mmol/L (136-145) Potassium Level 4.1 mmol/L (3.5-5.1) Chloride Level 98 mmol/L (98-107) Carbon Dioxide Level 22 mmol/L (21-32) Anion Gap 10 (6-14) Blood Urea Nitrogen 28 mg/dL (7-20) Creatinine 1.1 mg/dL (0.6-1.0) Estimated GFR (Cockcroft-Gault) 51.4 Glucose Level 334 mg/dL (70-99) Calcium Level 8.6 mg/dL (8.5-10.1) Total Bilirubin 1.1 mg/dL (0.2-1.0) Direct Bilirubin 0.7 mg/dL (0.0-0.2) Aspartate Amino Transf (AST/SGOT) 31 U/L (15-37) Alanine Aminotransferase (ALT/SGPT) 35 U/L (14-59) Alkaline Phosphatase 123 U/L (46-116) Total Protein 5.6 g/dL (6.4-8.2) Albumin 1.8 g/dL (3.4-5.0) Glucose (Fingerstick) 296 mg/dL (70-99) Microbiology 09/21/17 Blood Culture - Preliminary, Resulted NO GROWTH AFTER 1 DAY Medications Current Medications Fentanyl Citrate (Fentanyl 2ml Vial) 50 mcg 1X ONCE IV Last administered on 12/29at 14:34; Start 09/21/17 at 13:45; Stop 09/21/17 at 13:46; Status DC Pantoprazole Sodium (PROTONIX VIAL for IV PUSH) 40 mg 1X ONCE IVP Last administered on 09/21/17at 13:45; Start 09/21/17 at 13:45; Stop 09/21/17 at 13:46 ; Status DC Ondansetron HCl (Zofran) 4 mg 1X ONCE IV Last administered on 09/21/17at 14:34 ; Start 09/21/17 at 13:45; Stop 09/21/17 at 13:46; Status DC Sodium Chloride 1,000 ml @ 1,000 mls/hr 1X ONCE IV Last administered on at 14:33; Start 09/21/17 at 13:45; Stop 09/21/17 at 14:44; Status DC Iohexol (Omnipaque 300 Mg/ml) 75 ml 1X ONCE IV Last administered on 09/21/17at 13:45; Start 09/21/17 at 13:45; Stop 09/21/17 at 13:46; Status DC Info (CONTRAST GIVEN -- Rx MONITORING) 1 each PRN DAILY PRN MC SEE COMMENTS; Start 09/21/17 at 13:45; Stop 09/23/17 at 13:44 Sodium Chloride 1,000 ml @ 1,000 mls/hr 1X ONCE IV Last administered on at 14:33; Start 09/21/17 at 14:00; Stop 09/21/17 at 14:59; Status DC Acetaminophen (Tylenol) 1,000 mg 1X ONCE PO Last administered on 09/21/17at 14: 34; Start 09/21/17 at 14:00; Stop 09/21/17 at 14:01; Status DC Sodium Chloride 1,000 ml @ 1,000 mls/hr 1X ONCE IV Last administered on at 16:18; Start 09/21/17 at 14:15; Stop 09/21/17 at 15:14; Status DC Clindamycin Phosphate 50 ml @ 100 mls/hr Q8HRS IV ; Start 09/21/17 at 22:00; Stop 09/21/17 at 22:00; Status DC Clindamycin Phosphate 50 ml @ 100 mls/hr 1X ONCE IV Last administered on 09/21at 16:18; Start 09/21/17 at 15:30; Stop 09/21/17 at 15:59; Status DC Vancomycin HCl (Vanco Per Pharmacy) 1 each PRN DAILY PRN MC SEE COMMENTS Last administered on 09/22/17at 11:33; Start 09/21/17 at 15:30; Stop 09/22/17 at 14:44 ; Status DC Vancomycin HCl 2 gm/Sodium Chloride 500 ml @ 250 mls/hr 1X ONCE IV Last administered on 09/21/17at 17:21; Start 09/21/17 at 15:30; Stop 09/21/17 at 17:29 ; Status DC Ondansetron HCl (Zofran) 4 mg PRN Q8HRS PRN IV NAUSEA/VOMITING; Start 09/21/17 at 16:15; Stop 09/22/17 at 14:48; Status DC Fentanyl Citrate (Fentanyl 2ml Vial) 50 mcg PRN Q2HR PRN IV PAIN Last administered on 09/22/17at 15:47; Start 09/21/17 at 16:15; Stop 09/22/17 at 16:14 ; Status DC Acetaminophen (Tylenol) 650 mg PRN Q4HRS PRN PO FEVER; Start 09/21/17 at 16:15 ; Stop 09/22/17 at 14:47; Status DC Sodium Chloride 1,000 ml @ 125 mls/hr 1X ONCE IV Last administered on at 17:33; Start 09/21/17 at 16:15; Stop 09/22/17 at 16:04; Status DC Vancomycin HCl 1.5 gm/Sodium Chloride 500 ml @ 250 mls/hr Q24H IV ; Start 09/22 at 18:00; Stop 09/22/17 at 18:00; Status DC Vancomycin HCl (Vancomycin Trough Level) 1 each 1X ONCE MC ; Start 09/23/17 at 17:30; Stop 09/23/17 at 17:31; Status Cancel Insulin Human Lispro (HumaLOG) 0-9 UNITS TIDWMEALS SQ Last administered on 09/22at 18:22; Start 09/21/17 at 18:00 Dextrose (Dextrose 50%-Water Syringe) 12.5 gm PRN Q15MIN PRN IV SEE COMMENTS; Start 09/21/17 at 17:30 Insulin Glargine (Lantus) 20 units QHS SQ Last administered on 09/22/17at 21:50 ; Start 09/21/17 at 21:00 Insulin Human Lispro (HumaLOG) 10 units TIDWMEALS SQ Last administered on at 08:38; Start 09/22/17 at 08:00 Insulin Human Lispro (HumaLOG) 20 units 1X ONCE SQ ; Start 09/21/17 at 17:30; Stop 09/21/17 at 17:31; Status UNV Piperacillin Sod/ Tazobactam Sod (Zosyn Per Pharmacy) 1 each PRN DAILY PRN MC SEE COMMENTS; Start 09/21/17 at 17:45 Piperacillin Sod/ Tazobactam Sod 2.25 gm/Sodium Chloride 50 ml @ 100 mls/hr Q6HRS IV Last administered on 09/23/17at 06:02; Start 09/21/17 at 19:00 Ondansetron HCl (Zofran) 4 mg PRN Q6HRS PRN IV NAUSEA/VOMITING; Start 09/22/17 at 09:15; Stop 09/22/17 at 14:48; Status DC Fentanyl Citrate (Fentanyl 2ml Vial) 25 mcg PRN Q5MIN PRN IV MILD PAIN; Start 09/22/17 at 09:15; Stop 09/22/17 at 16:04; Status DC Fentanyl Citrate (Fentanyl 2ml Vial) 50 mcg PRN Q5MIN PRN IV MODERATE TO SEVERE PAIN Last administered on 09/22/17at 14:19; Start 09/22/17 at 09:15; Stop 09/22/17 at 16:04; Status DC Morphine Sulfate (Morphine Sulfate) 1 mg PRN Q10MIN PRN IV SEVERE PAIN Last administered on 09/22/17at 14:03; Start 09/22/17 at 09:15; Stop 09/22/17 at 16:08 ; Status DC Ringer's Solution 1,000 ml @ 30 mls/hr Q24H IV Last administered on 09/22/17at 14:04; Start 09/22/17 at 09:05; Stop 09/22/17 at 16:04; Status DC Lidocaine HCl (Xylocaine-Mpf 1% Vial) 2 ml PRN 1X PRN ID PRIOR TO IV START; Start 8/12/18 at 09:15; Stop 09/22/17 at 16:08; Status DC Prochlorperazine Edisylate (Compazine) 5 mg PACU PRN PRN IV NAUSEA, MRX1 Last administered on 09/22/17at 14:02; Start 09/22/17 at 09:15; Stop 09/22/17 at 16:04 ; Status DC Glycopyrrolate (Robinul) 1 mg STK-MED ONCE .ROUTE ; Start 09/22/17 at 09:29; Stop 09/22/17 at 09:30; Status DC Sevoflurane (Ultane) 90 ml STK-MED ONCE IH ; Start 09/22/17 at 09:29; Stop 09/22 at 09:30; Status DC Rocuronium [place]hman (Zemuron) 50 mg STK-MED ONCE .ROUTE ; Start 09/22/17 at 09:29 ; Stop 09/22/17 at 09:30; Status DC Fentanyl Citrate (Fentanyl 2ml Vial) 100 mcg STK-MED ONCE .ROUTE ; Start at 09:29; Stop 09/22/17 at 09:30; Status DC Neostigmine Methylsulfate (Neostigmine Methylsulfate) 5 mg STK-MED ONCE .ROUTE ; Start 09/22/17 at 09:29; Stop 09/22/17 at 09:30; Status DC Midazolam HCl (Versed) 2 mg STK-MED ONCE .ROUTE ; Start 09/22/17 at 09:29; Stop 09/22/17 at 09:31; Status DC Propofol 20 ml @ As Directed STK-MED ONCE IV ; Start 09/22/17 at 09:30; Stop 01/28 at 09:31; Status DC Lidocaine HCl (Lidocaine Pf 2% Vial) 5 ml STK-MED ONCE .ROUTE ; Start 09/22/17 at 09:30; Stop 09/22/17 at 09:31; Status DC Dexamethasone Sodium Phosphate (Decadron) 20 mg STK-MED ONCE .ROUTE ; Start 01/28 at 09:30; Stop 09/22/17 at 09:31; Status DC Ondansetron HCl (Zofran) 4 mg STK-MED ONCE .ROUTE ; Start 09/22/17 at 09:30; Stop 09/22/17 at 09:31; Status DC Ketorolac Tromethamine (Toradol For Or Only) 30 mg STK-MED ONCE INJ ; Start 01/28 at 09:30; Stop 09/22/17 at 09:31; Status DC Ketorolac Tromethamine (Toradol For Or Only) 30 mg STK-MED ONCE INJ ; Start 01/28 at 09:30; Stop 09/22/17 at 09:31; Status DC Insulin Aspart (NovoLOG VIAL) 8 unit 1X PACU PRN SQ SEE COMMENTS Last administered on 09/22/17at 10:48; Start 09/22/17 at 10:45 Bupivacaine HCl/ Epinephrine Bitart (Marcaine-Epi 0.5%-1:[id number]) 50 ml STK-MED ONCE .ROUTE ; Start 09/22/17 at 09:52; Stop 09/22/17 at 10:54; Status DC Iohexol (Omnipaque 300 Mg/ml) 100 ml STK-MED ONCE .ROUTE Last administered on at 12:23; Start 09/22/17 at 09:53; Stop 09/22/17 at 10:54; Status DC Cellulose (Surgicel Hemostat 4x8) 1 each STK-MED ONCE .ROUTE Last administered on 09/22/17at 11:49; Start 09/22/17 at 09:53; Stop 09/22/17 at 10:54; Status DC Phenylephrine HCl (PHENYLEPHRINE in 0.9% NACL PF) 1 mg STK-MED ONCE IV ; Start 09/22/17 at 11:19; Stop 09/22/17 at 11:21; Status DC Rocuronium [place] (Zemuron) 100 mg STK-MED ONCE .ROUTE ; Start 09/22/17 at 11: 34; Stop 09/22/17 at 11:35; Status DC Fentanyl Citrate (Fentanyl 2ml Vial) 100 mcg STK-MED ONCE .ROUTE ; Start at 11:35; Stop 09/22/17 at 11:36; Status DC Insulin Aspart (NovoLOG VIAL) 6 unit 1X ONCE SQ Last administered on at 14:02; Start 09/22/17 at 14:00; Stop 09/22/17 at 14:01; Status DC Oxycodone/ Acetaminophen (Percocet 5/325) 1 tab PRN Q4HRS PRN PO PAIN Last administered on 09/23/17at 04:17; Start 09/22/17 at 14:00 Oxycodone/ Acetaminophen (Percocet 5/325) 2 tab PRN Q4HRS PRN PO PAIN; Start at 14:00 Lactobacillus Rhamnosus (Culturelle) 1 cap BID PO Last administered on at 08:30; Start 09/22/17 at 21:00 Acetaminophen (Tylenol) 650 mg PRN Q6HRS PRN PO FEVER; Start 09/22/17 at 14:45 Ondansetron HCl (Zofran) 4 mg PRN Q6HRS PRN IV NAUSEA/VOMITING; Start 09/22/17 at 14:45; Stop 09/22/17 at 16:09; Status DC Morphine Sulfate (Morphine Sulfate) 2 mg PRN Q2HR PRN IV MODERATE TO SEVERE PAIN Last administered on 09/23/17at 02:16; Start 09/22/17 at 14:45 Tramadol HCl (Ultram) 50 mg PRN Q6HRS PRN PO MILD PAIN; Start 09/22/17 at 14:45 Hydralazine HCl (Apresoline Inj) 10 mg PRN Q4HRS PRN IVP ELEVATED BP, SEE COMMENTS; Start 09/22/17 at 14:45 Docusate Sodium (Colace) 100 mg PRN DAILY PRN PO CONSTIPATION; Start 09/22/17 at 14:45 Heparin Sodium (Porcine) (Heparin Sq) 5,000 unit Q8HRS SQ Last administered on 09/23/17at 06:09; Start 09/22/17 at 22:00 Famotidine (Pepcid Vial) 20 mg QHS IVP Last administered on 09/22/17at 21:48; Start 09/22/17 at 21:00 Carvedilol (Coreg) 3.125 mg BIDWMEALS PO Last administered on 09/22/17at 17:28; Start 09/22/17 at 17:00 Citalopram Hydrobromide (CeleXA) 40 mg DAILY PO Last administered on 09/23/17at 08:30; Start 09/22/17 at 16:00 Spironolactone (Aldactone) 50 mg DAILY PO Last administered on 09/22/17at 17:29 ; Start 09/22/17 at 16:00 Ondansetron HCl (Zofran) 4 mg PRN Q6HRS PRN IV NAUSEA/VOMITING; Start 09/22/17 at 16:15 Sodium Chloride 1,000 ml @ 75 mls/hr [id number] IV Last administered on at 06:02; Start 09/22/17 at 16:15 Active Scripts Active Reported Multivitamins (Multivitamin) 1 Each Tablet 1 Tab PO DAILY Lexapro (Escitalopram Oxalate) 20 Mg Tablet 1 Tab PO DAILY Spironolactone 50 Mg Tablet 1 Tab PO DAILY Carvedilol 3.125 Mg Tablet 1 Tab PO BID for HTN Vitals/I & O Vital Sign - Last 24 Hours 09/22/17 09/22/17 09/22/17 09/22/17 10:27 13:37 13:37 13:52 Temp 97.8 98.1 97.8 98.1 Pulse 82 80 77 Resp 20 20 20 B/P (MAP) 129/75 155/85 152/69 Pulse Ox 95 100 100 O2 Delivery Room Air Simple Mask Mask Simple Mask O2 Flow Rate 10 10 10 09/22/17 09/22/17 09/22/17 09/22/17 14:03 14:07 14:19 14:22 Pulse 72 77 Resp 20 20 20 20 B/P (MAP) 156/82 135/74 Pulse Ox 100 99 100 92 O2 Delivery Simple Mask Simple Mask Room Air O2 Flow Rate 10.0 10 10.0 09/22/17 09/22/17 09/22/17 09/22/17 14:37 14:49 15:00 15:15 Temp 97.8 97.5 97.8 97.5 Pulse 78 72 79 Resp 20 16 B/P (MAP) 138/73 108/61 (77) 117/68 (84) 121/71 (88) Pulse Ox 90 99 99 O2 Delivery Nasal Cannula Nasal Cannula O2 Flow Rate 2 2.0 2.0 09/22/17 09/22/17 09/22/17 09/22/17 15:30 15:45 15:47 16:00 Pulse 77 73 78 Resp 18 19 18 B/P (MAP) 124/72 (89) 117/69 (85) 108/65 (79) Pulse Ox 97 98 97 O2 Delivery Nasal Cannula Nasal Cannula Nasal Cannula Nasal Cannula O2 Flow Rate 2.0 2.0 2.0 2.0 09/22/17 09/22/17 09/22/17 09/22/17 16:30 17:00 17:28 18:00 Pulse 87 87 87 98 Resp 18 18 B/P (MAP) 116/68 (84) 114/66 105/69 (81) Pulse Ox 100 98 97 O2 Delivery Nasal Cannula Nasal Cannula Nasal Cannula O2 Flow Rate 2.0 2.0 2.0 09/22/17 09/22/17 09/22/17 09/22/17 18:32 19:00 20:00 23:00 Temp 98.1 98.6 98.1 98.6 Pulse 75 71 Resp 18 18 B/P (MAP) 105/58 (74) 96/51 (66) Pulse Ox 100 99 94 O2 Delivery Room Air Nasal Cannula Nasal Cannula Nasal Cannula O2 Flow Rate 2.0 2.0 2.0 2.0 09/23/17 09/23/17 09/23/17 09/23/17 02:16 02:46 03:00 04:17 Temp 98.4 98.4 Pulse 72 Resp 18 B/P (MAP) 116/66 (83) Pulse Ox 97 O2 Delivery Room Air Room Air Nasal Cannula Room Air O2 Flow Rate 2.0 09/23/17 09/23/17 09/23/17 05:17 07:00 08:00 Temp 98.3 98.3 Pulse 61 61 Resp 16 B/P (MAP) 105/60 (75) 105/60 Pulse Ox 93 O2 Delivery Room Air Nasal Cannula O2 Flow Rate 2.0 Intake and Output 09/22/17 09/22/17 09/23/17 15:00 23:00 07:00 Intake Total 1950 ml 380 ml 575 ml Output Total 200 ml 85 ml 390 ml Balance 1750 ml 295 ml 185 ml ARLINE LINO MD Sep 23, 2017 09:34
[2017-09-23 11:00] VITALS: BP 105/66
[2017-09-23] MEDS: PIPERACILLIN/TAZOBACTAM 3.375 GM in IV NORMAL SALINE 50ML 50 ML IV SCH ×2 (12:17→18:07)
--- NOTE | 2017-09-23 13:04 | PDOC2 ---
CONSULT Date of Consult Date of Consult DATE: 09/23/17 TIME: 12:57 Reason for Consult Reason for Consult: NEAL Referring Physician Referring Physician: KIMI Identification/Chief Complaint Chief Complaint ABD PAIN Source Source: Chart review, Patient History of Present Illness Reason for Visit: THIS IS A 56 YR OLD ADMITTED WITH ABD PAIN AND WEAKNESS. ALSO POOR PO INTAKE. SHE WAS DX WITH CHOLECYSTITIS AND THEN UNDERWENT A CHOLY. HER CR ON ADMIT WAS 1.9. NO CKD NOTED. NEPHROTOXINS NOTED. HX POS FOR POST STREPTOCOCCAL GN AT AGE 9. NO OTHER HX. NA ALSO LOW ON ADMIT AT 125 Past Medical History Cardiovascular: No pertinent hx Infectious disease: No pertinent hx ENT: No pertinent hx Renal/: Other (HX OF NEAL AND GN AT AGE 9 BUT RESOLVED) Endocrine: Diabetes Past Surgical History Past Surgical History: Other (gastric bypass) Family History Family History: Adopted Social History No ALCOHOL: none Drugs: None Current Problem List Problem List Problems Medical Problems: (1) Cholecystitis Status: Acute (2) Hyponatremia Status: Acute (3) Sepsis Status: Acute Current Medications Current Medications Current Medications Fentanyl Citrate (Fentanyl 2ml Vial) 50 mcg 1X ONCE IV Last administered on 12/29at 14:34; Start 09/21/17 at 13:45; Stop 09/21/17 at 13:46; Status DC Pantoprazole Sodium (PROTONIX VIAL for IV PUSH) 40 mg 1X ONCE IVP Last administered on 09/21/17at 13:45; Start 09/21/17 at 13:45; Stop 09/21/17 at 13:46 ; Status DC Ondansetron HCl (Zofran) 4 mg 1X ONCE IV Last administered on 09/21/17at 14:34 ; Start 09/21/17 at 13:45; Stop 09/21/17 at 13:46; Status DC Sodium Chloride 1,000 ml @ 1,000 mls/hr 1X ONCE IV Last administered on at 14:33; Start 09/21/17 at 13:45; Stop 09/21/17 at 14:44; Status DC Iohexol (Omnipaque 300 Mg/ml) 75 ml 1X ONCE IV Last administered on 09/21/17at 13:45; Start 09/21/17 at 13:45; Stop 09/21/17 at 13:46; Status DC Info (CONTRAST GIVEN -- Rx MONITORING) 1 each PRN DAILY PRN MC SEE COMMENTS; Start 09/21/17 at 13:45; Stop 09/23/17 at 13:44 Sodium Chloride 1,000 ml @ 1,000 mls/hr 1X ONCE IV Last administered on at 14:33; Start 09/21/17 at 14:00; Stop 09/21/17 at 14:59; Status DC Acetaminophen (Tylenol) 1,000 mg 1X ONCE PO Last administered on 09/21/17at 14: 34; Start 09/21/17 at 14:00; Stop 09/21/17 at 14:01; Status DC Sodium Chloride 1,000 ml @ 1,000 mls/hr 1X ONCE IV Last administered on at 16:18; Start 09/21/17 at 14:15; Stop 09/21/17 at 15:14; Status DC Clindamycin Phosphate 50 ml @ 100 mls/hr Q8HRS IV ; Start 09/21/17 at 22:00; Stop 09/21/17 at 22:00; Status DC Clindamycin Phosphate 50 ml @ 100 mls/hr 1X ONCE IV Last administered on 09/21at 16:18; Start 09/21/17 at 15:30; Stop 09/21/17 at 15:59; Status DC Vancomycin HCl (Vanco Per Pharmacy) 1 each PRN DAILY PRN MC SEE COMMENTS Last administered on 09/22/17at 11:33; Start 09/21/17 at 15:30; Stop 09/22/17 at 14:44 ; Status DC Vancomycin HCl 2 gm/Sodium Chloride 500 ml @ 250 mls/hr 1X ONCE IV Last administered on 09/21/17at 17:21; Start 09/21/17 at 15:30; Stop 09/21/17 at 17:29 ; Status DC Ondansetron HCl (Zofran) 4 mg PRN Q8HRS PRN IV NAUSEA/VOMITING; Start 09/21/17 at 16:15; Stop 09/22/17 at 14:48; Status DC Fentanyl Citrate (Fentanyl 2ml Vial) 50 mcg PRN Q2HR PRN IV PAIN Last administered on 09/22/17at 15:47; Start 09/21/17 at 16:15; Stop 09/22/17 at 16:14 ; Status DC Acetaminophen (Tylenol) 650 mg PRN Q4HRS PRN PO FEVER; Start 09/21/17 at 16:15 ; Stop 09/22/17 at 14:47; Status DC Sodium Chloride 1,000 ml @ 125 mls/hr 1X ONCE IV Last administered on at 17:33; Start 09/21/17 at 16:15; Stop 09/22/17 at 16:04; Status DC Vancomycin HCl 1.5 gm/Sodium Chloride 500 ml @ 250 mls/hr Q24H IV ; Start 09/22 at 18:00; Stop 09/22/17 at 18:00; Status DC Vancomycin HCl (Vancomycin Trough Level) 1 each 1X ONCE MC ; Start 09/23/17 at 17:30; Stop 09/23/17 at 17:31; Status Cancel Insulin Human Lispro (HumaLOG) 0-9 UNITS TIDWMEALS SQ Last administered on 09/22at 18:22; Start 09/21/17 at 18:00 Dextrose (Dextrose 50%-Water Syringe) 12.5 gm PRN Q15MIN PRN IV SEE COMMENTS; Start 09/21/17 at 17:30 Insulin Glargine (Lantus) 20 units QHS SQ Last administered on 09/22/17at 21:50 ; Start 09/21/17 at 21:00 Insulin Human Lispro (HumaLOG) 10 units TIDWMEALS SQ Last administered on at 12:23; Start 09/22/17 at 08:00 Insulin Human Lispro (HumaLOG) 20 units 1X ONCE SQ ; Start 09/21/17 at 17:30; Stop 09/21/17 at 17:31; Status UNV Piperacillin Sod/ Tazobactam Sod (Zosyn Per Pharmacy) 1 each PRN DAILY PRN MC SEE COMMENTS; Start 09/21/17 at 17:45 Piperacillin Sod/ Tazobactam Sod 2.25 gm/Sodium Chloride 50 ml @ 100 mls/hr Q6HRS IV Last administered on 09/23/17at 06:02; Start 09/21/17 at 19:00; Stop at 11:35; Status DC Ondansetron HCl (Zofran) 4 mg PRN Q6HRS PRN IV NAUSEA/VOMITING; Start 09/22/17 at 09:15; Stop 09/22/17 at 14:48; Status DC Fentanyl Citrate (Fentanyl 2ml Vial) 25 mcg PRN Q5MIN PRN IV MILD PAIN; Start 09/22/17 at 09:15; Stop 09/22/17 at 16:04; Status DC Fentanyl Citrate (Fentanyl 2ml Vial) 50 mcg PRN Q5MIN PRN IV MODERATE TO SEVERE PAIN Last administered on 09/22/17at 14:19; Start 09/22/17 at 09:15; Stop 09/22/17 at 16:04; Status DC Morphine Sulfate (Morphine Sulfate) 1 mg PRN Q10MIN PRN IV SEVERE PAIN Last administered on 09/22/17at 14:03; Start 09/22/17 at 09:15; Stop 09/22/17 at 16:08 ; Status DC Ringer's Solution 1,000 ml @ 30 mls/hr Q24H IV Last administered on 09/22/17at 14:04; Start 09/22/17 at 09:05; Stop 09/22/17 at 16:04; Status DC Lidocaine HCl (Xylocaine-Mpf 1% Vial) 2 ml PRN 1X PRN ID PRIOR TO IV START; Start 09/22/17 at 09:15; Stop 09/22/17 at 16:08; Status DC Prochlorperazine Edisylate (Compazine) 5 mg PACU PRN PRN IV NAUSEA, MRX1 Last administered on 09/22/17at 14:02; Start 09/22/17 at 09:15; Stop 09/22/17 at 16:04 ; Status DC Glycopyrrolate (Robinul) 1 mg STK-MED ONCE .ROUTE ; Start 09/22/17 at 09:29; Stop 09/22/17 at 09:30; Status DC Sevoflurane (Ultane) 90 ml STK-MED ONCE IH ; Start 09/22/17 at 09:29; Stop 09/22 at 09:30; Status DC Rocuronium [place] (Zemuron) 50 mg STK-MED ONCE .ROUTE ; Start 09/22/17 at 09:29 ; Stop 09/22/17 at 09:30; Status DC Fentanyl Citrate (Fentanyl 2ml Vial) 100 mcg STK-MED ONCE .ROUTE ; Start at 09:29; Stop 09/22/17 at 09:30; Status DC Neostigmine Methylsulfate (Neostigmine Methylsulfate) 5 mg STK-MED ONCE .ROUTE ; Start 09/22/17 at 09:29; Stop 09/22/17 at 09:30; Status DC Midazolam HCl (Versed) 2 mg STK-MED ONCE .ROUTE ; Start 09/22/17 at 09:29; Stop 09/22/17 at 09:31; Status DC Propofol 20 ml @ As Directed STK-MED ONCE IV ; Start 09/22/17 at 09:30; Stop 01/28 at 09:31; Status DC Lidocaine HCl (Lidocaine Pf 2% Vial) 5 ml STK-MED ONCE .ROUTE ; Start 09/22/17 at 09:30; Stop 09/22/17 at 09:31; Status DC Dexamethasone Sodium Phosphate (Decadron) 20 mg STK-MED ONCE .ROUTE ; Start 01/28 at 09:30; Stop 09/22/17 at 09:31; Status DC Ondansetron HCl (Zofran) 4 mg STK-MED ONCE .ROUTE ; Start 09/22/17 at 09:30; Stop 09/22/17 at 09:31; Status DC Ketorolac Tromethamine (Toradol For Or Only) 30 mg STK-MED ONCE INJ ; Start 01/28 at 09:30; Stop 09/22/17 at 09:31; Status DC Ketorolac Tromethamine (Toradol For Or Only) 30 mg STK-MED ONCE INJ ; Start 01/28 at 09:30; Stop 09/22/17 at 09:31; Status DC Insulin Aspart (NovoLOG VIAL) 8 unit 1X PACU PRN SQ SEE COMMENTS Last administered on 09/22/17at 10:48; Start 09/22/17 at 10:45; Stop 09/23/17 at 11:29 ; Status DC Bupivacaine HCl/ Epinephrine Bitart (Marcaine-Epi 0.5%-[id number]) 50 ml STK-MED ONCE .ROUTE ; Start 09/22/17 at 09:52; Stop 09/22/17 at 10:54; Status DC Iohexol (Omnipaque 300 Mg/ml) 100 ml STK-MED ONCE .ROUTE Last administered on at 12:23; Start 09/22/17 at 09:53; Stop 09/22/17 at 10:54; Status DC Cellulose (Surgicel Hemostat 4x8) 1 each STK-MED ONCE .ROUTE Last administered on 09/22/17at 11:49; Start 09/22/17 at 09:53; Stop 09/22/17 at 10:54; Status DC Phenylephrine HCl (PHENYLEPHRINE in 0.9% NACL PF) 1 mg STK-MED ONCE IV ; Start 09/22/17 at 11:19; Stop 09/22/17 at 11:21; Status DC Rocuronium [place] (Zemuron) 100 mg STK-MED ONCE .ROUTE ; Start 09/22/17 at 11: 34; Stop 09/22/17 at 11:35; Status DC Fentanyl Citrate (Fentanyl 2ml Vial) 100 mcg STK-MED ONCE .ROUTE ; Start at 11:35; Stop 09/22/17 at 11:36; Status DC Insulin Aspart (NovoLOG VIAL) 6 unit 1X ONCE SQ Last administered on at 14:02; Start 09/22/17 at 14:00; Stop 09/22/17 at 14:01; Status DC Oxycodone/ Acetaminophen (Percocet 5/325) 1 tab PRN Q4HRS PRN PO MODERATE PAIN Last administered on 09/23/17at 04:17; Start 09/22/17 at 14:00 Oxycodone/ Acetaminophen (Percocet 5/325) 2 tab PRN Q4HRS PRN PO SEVERE PAIN; Start 09/22/17 at 14:00 Lactobacillus Rhamnosus (Culturelle) 1 cap BID PO Last administered on at 08:30; Start 09/22/17 at 21:00 Acetaminophen (Tylenol) 650 mg PRN Q6HRS PRN PO FEVER; Start 09/22/17 at 14:45 Ondansetron HCl (Zofran) 4 mg PRN Q6HRS PRN IV NAUSEA/VOMITING; Start 09/22/17 at 14:45; Stop 09/22/17 at 16:09; Status DC Morphine Sulfate (Morphine Sulfate) 2 mg PRN Q2HR PRN IV MODERATE TO SEVERE PAIN Last administered on 09/23/17at 02:16; Start 09/22/17 at 14:45 Tramadol HCl (Ultram) 50 mg PRN Q6HRS PRN PO MILD PAIN; Start 09/22/17 at 14:45 Hydralazine HCl (Apresoline Inj) 10 mg PRN Q4HRS PRN IVP ELEVATED BP, SEE COMMENTS; Start 09/22/17 at 14:45 Docusate Sodium (Colace) 100 mg PRN DAILY PRN PO CONSTIPATION; Start 09/22/17 at 14:45 Heparin Sodium (Porcine) (Heparin Sq) 5,000 unit Q8HRS SQ Last administered on 09/23/17at 06:09; Start 09/22/17 at 22:00 Famotidine (Pepcid Vial) 20 mg QHS IVP Last administered on 09/22/17at 21:48; Start 09/22/17 at 21:00; Stop 09/23/17 at 11:32; Status DC Carvedilol (Coreg) 3.125 mg BIDWMEALS PO Last administered on 09/22/17at 17:28; Start 09/22/17 at 17:00 Citalopram Hydrobromide (CeleXA) 40 mg DAILY PO Last administered on 09/23/17at 08:30; Start 09/22/17 at 16:00 Spironolactone (Aldactone) 50 mg DAILY PO Last administered on 09/22/17at 17:29 ; Start 09/22/17 at 16:00 Ondansetron HCl (Zofran) 4 mg PRN Q6HRS PRN IV NAUSEA/VOMITING; Start 09/22/17 at 16:15 Sodium Chloride 1,000 ml @ 100 mls/hr Q10H IV Last administered on 09/23/17at 06:02; Start 09/22/17 at 16:15 Famotidine (Pepcid) 20 mg QHS PO ; Start 09/23/17 at 21:00 Piperacillin Sod/ Tazobactam Sod 3.375 gm/Sodium Chloride 50 ml @ 100 mls/hr Q6HRS IV Last administered on 09/23/17at 12:17; Start 09/23/17 at 12:00 Active Scripts Active Reported Multivitamins (Multivitamin) 1 Each Tablet 1 Tab PO DAILY Lexapro (Escitalopram Oxalate) 20 Mg Tablet 1 Tab PO DAILY Spironolactone 50 Mg Tablet 1 Tab PO DAILY Carvedilol 3.125 Mg Tablet 1 Tab PO BID for HTN Allergies Allergies: Coded Allergies: Penicillins (Verified Allergy, Unknown, 09/22/17) ROS General: YES: Fatigue, Malaise, Appetite PSYCHOLOGICAL ROS: YES: Depression Eyes: Yes Decreased vision HEENT: YES: Heacaches Respiratory: YES: Cough Gastrointestinal: Yes Nausea, Yes Vomiting, Yes Abdominal Pain Genitourinary: YES Other (DECREASED UO) Musculoskeletal: Yes Muscular Weakness Neurological: Yes Weakness Skin: Yes Dry Skin Physical Exam General: Alert, Oriented X3, Cooperative, No acute distress HEENT: Atraumatic, PERRLA, EOMI, Mucous membr. moist/pink Lungs: Clear to auscultation, Normal air movement Heart: Regular rate, Normal S1, Normal S2 Abdomen: Normal bowel sounds, Soft Extremities: No clubbing, No cyanosis Skin: No breakdown Neuro: Normal speech, Sensation intact, Cranial nerves 3-12 NL Psych/Mental Status: Mental status NL, Mood NL MUSCULOSKELETAL: No joint tenderness, No deformity, No swelling Vitals VITALS Vital Signs Date Time Temp Pulse Resp B/P (MAP) Pulse Ox O2 Delivery O2 Flow Rate FiO2 09/23/17 11:00 97.7 61 16 105/66 (79) 97 Nasal Cannula 2.0 97.7 Labs Labs Laboratory Tests Test 09/21/17 13:10 09/21/17 13:30 09/21/17 16:55 09/21/17 17:27 Urine Collection Type Unknown Urine Color Dk yellow Urine Clarity Cloudy Urine pH 5.0 Urine Specific [place] >=1.030 Urine Protein 100 mg/dL (NEG-TRACE) Urine Glucose (UA) >=1000 mg/dL (NEG) Urine Ketones (Stick) Trace mg/dL (NEG) Urine Blood Negative (NEG) Urine Nitrite Negative (NEG) Urine Bilirubin Moderate (NEG) Urine Urobilinogen Dipstick 1.0 mg/dL (0.2 mg/dL) Urine Leukocyte Esterase Trace (NEG) Urine RBC Occ /HPF (0-2) Urine WBC 1-4 /HPF (0-4) Urine Squamous Epithelial Cells Many /LPF Urine Bacteria Many /HPF (0-FEW) White Blood Count 23.1 x10^3/uL (4.0-11.0) Red Blood Count 4.85 x10^6/uL (3.50-5.40) Hemoglobin 14.9 g/dL (12.0-15.5) Hematocrit 43.4 % (36.0-47.0) Mean Corpuscular Volume 89 fL (79-100) Mean Corpuscular Hemoglobin 31 pg (25-35) Mean Corpuscular Hemoglobin Concent 34 g/dL (31-37) Red Cell Distribution Width 13.0 % (11.5-14.5) Platelet Count 185 x10^3/uL (140-400) Neutrophils (%) (Auto) 92 % (31-73) Lymphocytes (%) (Auto) 2 % (24-48) Monocytes (%) (Auto) 6 % (0-9) Eosinophils (%) (Auto) 0 % (0-3) Basophils (%) (Auto) 0 % (0-3) Neutrophils # (Auto) 21.3 x10^3uL (1.8-7.7) Lymphocytes # (Auto) 0.5 x10^3/uL (1.0-4.8) Monocytes # (Auto) 1.3 x10^3/uL (0.0-1.1) Eosinophils # (Auto) 0.0 x10^3/uL (0.0-0.7) Basophils # (Auto) 0.0 x10^3/uL (0.0-0.2) Segmented Neutrophils % 85 % (35-66) Band Neutrophils % 11 % (0-9) Lymphocytes % 1 % (24-48) Monocytes % 3 % (0-10) Toxic Granulation Slight Platelet Estimate Adequate (ADEQUATE) Sodium Level 125 mmol/L (136-145) Potassium Level 4.3 mmol/L (3.5-5.1) Chloride Level 91 mmol/L (98-107) Carbon Dioxide Level 25 mmol/L (21-32) Anion Gap 9 (6-14) Blood Urea Nitrogen 36 mg/dL (7-20) Creatinine 1.9 mg/dL (0.6-1.0) Estimated GFR (Cockcroft-Gault) 27.3 BUN/Creatinine Ratio 19 (6-20) Glucose Level 422 mg/dL (70-99) Calcium Level 9.9 mg/dL (8.5-10.1) Total Bilirubin 2.9 mg/dL (0.2-1.0) Aspartate Amino Transf (AST/SGOT) 21 U/L (15-37) Alanine Aminotransferase (ALT/SGPT) 33 U/L (14-59) Alkaline Phosphatase 181 U/L (46-116) Total Protein 7.6 g/dL (6.4-8.2) Albumin 3.0 g/dL (3.4-5.0) Albumin/Globulin Ratio 0.7 (1.0-1.7) Lipase 95 U/L (73-393) Ethyl Alcohol Level < 10 mg/dL (0-10) Lactic Acid Level 1.5 mmol/L (0.4-2.0) Glucose (Fingerstick) 319 mg/dL (70-99) Test 09/22/17 04:05 09/22/17 04:08 09/22/17 10:11 09/22/17 13:45 Sodium Level 130 mmol/L (136-145) Potassium Level 3.7 mmol/L (3.5-5.1) Chloride Level 99 mmol/L (98-107) Carbon Dioxide Level 23 mmol/L (21-32) Anion Gap 8 (6-14) Blood Urea Nitrogen 26 mg/dL (7-20) Creatinine 1.1 mg/dL (0.6-1.0) Estimated GFR (Cockcroft-Gault) 51.4 BUN/Creatinine Ratio 24 (6-20) Glucose Level 272 mg/dL (70-99) Calcium Level 8.5 mg/dL (8.5-10.1) Total Bilirubin 1.5 mg/dL (0.2-1.0) Aspartate Amino Transf (AST/SGOT) 20 U/L (15-37) Alanine Aminotransferase (ALT/SGPT) 25 U/L (14-59) Alkaline Phosphatase 134 U/L (46-116) Total Protein 5.8 g/dL (6.4-8.2) Albumin 2.1 g/dL (3.4-5.0) Albumin/Globulin Ratio 0.6 (1.0-1.7) White Blood Count 14.0 x10^3/uL (4.0-11.0) Red Blood Count 3.99 x10^6/uL (3.50-5.40) Hemoglobin 12.2 g/dL (12.0-15.5) Hematocrit 35.5 % (36.0-47.0) Mean Corpuscular Volume 89 fL (79-100) Mean Corpuscular Hemoglobin 31 pg (25-35) Mean Corpuscular Hemoglobin Concent 34 g/dL (31-37) Red Cell Distribution Width 13.2 % (11.5-14.5) Platelet Count 128 x10^3/uL (140-400) Neutrophils (%) (Auto) 90 % (31-73) Lymphocytes (%) (Auto) 3 % (24-48) Monocytes (%) (Auto) 8 % (0-9) Eosinophils (%) (Auto) 0 % (0-3) Basophils (%) (Auto) 0 % (0-3) Neutrophils # (Auto) 12.5 x10^3uL (1.8-7.7) Lymphocytes # (Auto) 0.4 x10^3/uL (1.0-4.8) Monocytes # (Auto) 1.1 x10^3/uL (0.0-1.1) Eosinophils # (Auto) 0.0 x10^3/uL (0.0-0.7) Basophils # (Auto) 0.0 x10^3/uL (0.0-0.2) Hemoglobin A1c 9.8 % (4.8-5.6) Direct Bilirubin 1.0 mg/dL (0.0-0.2) Glucose (Fingerstick) 280 mg/dL (70-99) 235 mg/dL (70-99) Test 09/22/17 17:00 09/22/17 20:41 09/23/17 03:35 09/23/17 07:25 Glucose (Fingerstick) 210 mg/dL (70-99) 326 mg/dL (70-99) 296 mg/dL (70-99) White Blood Count 10.2 x10^3/uL (4.0-11.0) Red Blood Count 3.73 x10^6/uL (3.50-5.40) Hemoglobin 11.6 g/dL (12.0-15.5) Hematocrit 33.5 % (36.0-47.0) Mean Corpuscular Volume 90 fL (79-100) Mean Corpuscular Hemoglobin 31 pg (25-35) Mean Corpuscular Hemoglobin Concent 35 g/dL (31-37) Red Cell Distribution Width 13.6 % (11.5-14.5) Platelet Count 138 x10^3/uL (140-400) Neutrophils (%) (Auto) 88 % (31-73) Lymphocytes (%) (Auto) 2 % (24-48) Monocytes (%) (Auto) 10 % (0-9) Eosinophils (%) (Auto) 0 % (0-3) Basophils (%) (Auto) 0 % (0-3) Neutrophils # (Auto) 8.9 x10^3uL (1.8-7.7) Lymphocytes # (Auto) 0.2 x10^3/uL (1.0-4.8) Monocytes # (Auto) 1.0 x10^3/uL (0.0-1.1) Eosinophils # (Auto) 0.0 x10^3/uL (0.0-0.7) Basophils # (Auto) 0.0 x10^3/uL (0.0-0.2) Sodium Level 130 mmol/L (136-145) Potassium Level 4.1 mmol/L (3.5-5.1) Chloride Level 98 mmol/L (98-107) Carbon Dioxide Level 22 mmol/L (21-32) Anion Gap 10 (6-14) Blood Urea Nitrogen 28 mg/dL (7-20) Creatinine 1.1 mg/dL (0.6-1.0) Estimated GFR (Cockcroft-Gault) 51.4 Glucose Level 334 mg/dL (70-99) Calcium Level 8.6 mg/dL (8.5-10.1) Total Bilirubin 1.1 mg/dL (0.2-1.0) Direct Bilirubin 0.7 mg/dL (0.0-0.2) Aspartate Amino Transf (AST/SGOT) 31 U/L (15-37) Alanine Aminotransferase (ALT/SGPT) 35 U/L (14-59) Alkaline Phosphatase 123 U/L (46-116) Total Protein 5.6 g/dL (6.4-8.2) Albumin 1.8 g/dL (3.4-5.0) Thyroid Stimulating Hormone (TSH) 0.759 uIU/mL (0.358-3.74) Test 09/23/17 11:06 Glucose (Fingerstick) 296 mg/dL (70-99) Laboratory Tests Test 09/22/17 13:45 09/22/17 17:00 09/22/17 20:41 09/23/17 03:35 Glucose (Fingerstick) 235 mg/dL (70-99) 210 mg/dL (70-99) 326 mg/dL (70-99) White Blood Count 10.2 x10^3/uL (4.0-11.0) Red Blood Count 3.73 x10^6/uL (3.50-5.40) Hemoglobin 11.6 g/dL (12.0-15.5) Hematocrit 33.5 % (36.0-47.0) Mean Corpuscular Volume 90 fL (79-100) Mean Corpuscular Hemoglobin 31 pg (25-35) Mean Corpuscular Hemoglobin Concent 35 g/dL (31-37) Red Cell Distribution Width 13.6 % (11.5-14.5) Platelet Count 138 x10^3/uL (140-400) Neutrophils (%) (Auto) 88 % (31-73) Lymphocytes (%) (Auto) 2 % (24-48) Monocytes (%) (Auto) 10 % (0-9) Eosinophils (%) (Auto) 0 % (0-3) Basophils (%) (Auto) 0 % (0-3) Neutrophils # (Auto) 8.9 x10^3uL (1.8-7.7) Lymphocytes # (Auto) 0.2 x10^3/uL (1.0-4.8) Monocytes # (Auto) 1.0 x10^3/uL (0.0-1.1) Eosinophils # (Auto) 0.0 x10^3/uL (0.0-0.7) Basophils # (Auto) 0.0 x10^3/uL (0.0-0.2) Sodium Level 130 mmol/L (136-145) Potassium Level 4.1 mmol/L (3.5-5.1) Chloride Level 98 mmol/L (98-107) Carbon Dioxide Level 22 mmol/L (21-32) Anion Gap 10 (6-14) Blood Urea Nitrogen 28 mg/dL (7-20) Creatinine 1.1 mg/dL (0.6-1.0) Estimated GFR (Cockcroft-Gault) 51.4 Glucose Level 334 mg/dL (70-99) Calcium Level 8.6 mg/dL (8.5-10.1) Total Bilirubin 1.1 mg/dL (0.2-1.0) Direct Bilirubin 0.7 mg/dL (0.0-0.2) Aspartate Amino Transf (AST/SGOT) 31 U/L (15-37) Alanine Aminotransferase (ALT/SGPT) 35 U/L (14-59) Alkaline Phosphatase 123 U/L (46-116) Total Protein 5.6 g/dL (6.4-8.2) Albumin 1.8 g/dL (3.4-5.0) Thyroid Stimulating Hormone (TSH) 0.759 uIU/mL (0.358-3.74) Test 09/23/17 07:25 09/23/17 11:06 Glucose (Fingerstick) 296 mg/dL (70-99) 296 mg/dL (70-99) Assessment/Plan Assessment/Plan IMP NEAL-WITH PEAK CR OF 1.9 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
[2017-09-23 15:00] VITALS: BP 123/83
--- NOTE | 2017-09-23 16:15 | PDOC ---
GI PROGRESS NOTES Date Date/Time DATE: 09/23/17 TIME: 16:11 Subjective Subjective improved after surgery- tolerating CLD Objective Vitals Vital Signs Date Time Temp Pulse Resp B/P (MAP) Pulse Ox O2 Delivery O2 Flow Rate FiO2 09/23/17 15:00 98.1 60 16 123/83 (96) 96 Nasal Cannula 2.0 98.1 09/23/17 11:00 97.7 61 16 105/66 (79) 97 Nasal Cannula 2.0 97.7 09/23/17 08:00 61 105/60 09/23/17 07:45 Room Air 09/23/17 07:00 98.3 61 16 105/60 (75) 93 Nasal Cannula 2.0 98.3 09/23/17 05:17 Room Air 09/23/17 04:17 Room Air 09/23/17 03:00 98.4 72 18 116/66 (83) 97 Nasal Cannula 2.0 98.4 09/23/17 02:46 Room Air 09/23/17 02:16 Room Air 09/22/17 23:00 98.6 71 18 96/51 (66) 94 Nasal Cannula 2.0 98.6 09/22/17 20:00 Nasal Cannula 2.0 09/22/17 19:00 98.1 75 18 105/58 (74) 99 Nasal Cannula 2.0 98.1 09/22/17 18:32 18 100 Room Air 2.0 09/22/17 18:00 98 18 105/69 (81) 97 Nasal Cannula 2.0 09/22/17 17:28 87 114/66 09/22/17 17:00 87 116/68 (84) 98 Nasal Cannula 2.0 09/22/17 16:30 87 18 100 Nasal Cannula 2.0 Labs Labs Laboratory Tests Test 09/22/17 17:00 09/22/17 20:41 09/23/17 03:35 09/23/17 07:25 Glucose (Fingerstick) 210 mg/dL (70-99) 326 mg/dL (70-99) 296 mg/dL (70-99) White Blood Count 10.2 x10^3/uL (4.0-11.0) Red Blood Count 3.73 x10^6/uL (3.50-5.40) Hemoglobin 11.6 g/dL (12.0-15.5) Hematocrit 33.5 % (36.0-47.0) Mean Corpuscular Volume 90 fL (79-100) Mean Corpuscular Hemoglobin 31 pg (25-35) Mean Corpuscular Hemoglobin Concent 35 g/dL (31-37) Red Cell Distribution Width 13.6 % (11.5-14.5) Platelet Count 138 x10^3/uL (140-400) Neutrophils (%) (Auto) 88 % (31-73) Lymphocytes (%) (Auto) 2 % (24-48) Monocytes (%) (Auto) 10 % (0-9) Eosinophils (%) (Auto) 0 % (0-3) Basophils (%) (Auto) 0 % (0-3) Neutrophils # (Auto) 8.9 x10^3uL (1.8-7.7) Lymphocytes # (Auto) 0.2 x10^3/uL (1.0-4.8) Monocytes # (Auto) 1.0 x10^3/uL (0.0-1.1) Eosinophils # (Auto) 0.0 x10^3/uL (0.0-0.7) Basophils # (Auto) 0.0 x10^3/uL (0.0-0.2) Sodium Level 130 mmol/L (136-145) Potassium Level 4.1 mmol/L (3.5-5.1) Chloride Level 98 mmol/L (98-107) Carbon Dioxide Level 22 mmol/L (21-32) Anion Gap 10 (6-14) Blood Urea Nitrogen 28 mg/dL (7-20) Creatinine 1.1 mg/dL (0.6-1.0) Estimated GFR (Cockcroft-Gault) 51.4 Glucose Level 334 mg/dL (70-99) Calcium Level 8.6 mg/dL (8.5-10.1) Total Bilirubin 1.1 mg/dL (0.2-1.0) Direct Bilirubin 0.7 mg/dL (0.0-0.2) Aspartate Amino Transf (AST/SGOT) 31 U/L (15-37) Alanine Aminotransferase (ALT/SGPT) 35 U/L (14-59) Alkaline Phosphatase 123 U/L (46-116) Total Protein 5.6 g/dL (6.4-8.2) Albumin 1.8 g/dL (3.4-5.0) Thyroid Stimulating Hormone (TSH) 0.759 uIU/mL (0.358-3.74) Test 09/23/17 11:06 Glucose (Fingerstick) 296 mg/dL (70-99) Physical Exam Physical Exam Alert abd - soft post op Assessment Assessment acute cholecystitis post lap robby- improved Mild increase in bili- resolving- monitor- likely from sepsis, not from retained CBD stone due to negative IOC and improvement Plan- per surgery MARLON HAYWOOD MD Sep 23, 2017 16:15
[2017-09-23 19:00] VITALS: BP 118/76
[2017-09-23] MEDS ORDERED: FAMOTIDINE 20 MG TABLET. PO SCH (21:00)
[2017-09-23] MEDS: INSULIN GLARGINE 300 UNITS/3 ML INSULN.PEN. SQ SCH (21:54)
[2017-09-23 23:00] VITALS: BP 109/68
[2017-09-24] MEDS: PIPERACILLIN/TAZOBACTAM 3.375 GM in IV NORMAL SALINE 50ML 50 ML IV SCH ×3 (00:18→12:08)
[2017-09-24 03:00] VITALS: BP 106/67
[2017-09-24 04:30] LABS: CALCIUM 8.7 mg/dL (8.5-10.1); GFR 57.4; POTASSIUM 3.8 mmol/L (3.5-5.1)
[2017-09-24] MEDS: HEPARIN PF for SUB-Q USE 5,000 UNIT/0.5 ML VIAL. SQ SCH ×2 (06:23→14:00)
[2017-09-24 07:00] VITALS: BP 112/78
[2017-09-24] MEDS: INSULIN LISPRO 300 UNITS/3 ML INSULN.PEN. SQ SCH ×4 (08:00→12:13)
[2017-09-24] MEDS: LACTOBACILLUS RHAMNOSUS GG 1 CAPSULE. PO SCH (08:15)
[2017-09-24] MEDS: CITALOPRAM 20 MG TABLET. PO SCH (08:16)
[2017-09-24] MEDS: SPIRONOLACTONE 25 MG TABLET PO SCH (08:16)
[2017-09-24] MEDS: CARVEDILOL 3.125 MG TABLET. PO SCH (08:16)
--- NOTE | 2017-09-24 09:02 | PDOC ---
TRAVIS CARRERA CHAR PULLER 09/24/17 0902: SURGICAL PROGRESS NOTE Subjective pain is managed overall feeling better tolerating diet Vital Signs Vital Signs Date Time Temp Pulse Resp B/P (MAP) Pulse Ox O2 Delivery O2 Flow Rate FiO2 09/24/17 08:16 60 112/78 09/24/17 03:00 97.6 16 97 Nasal Cannula 2.0 97.6 I&O Intake and Output 09/24/17 07:00 Intake Total 240 ml Output Total 885 ml Balance -645 ml Intake Oral 240 ml Output Urine Total 750 ml Drainage Total 135 ml # Voids 1 General: Alert, Oriented X3, Cooperative, No acute distress Abdomen: Soft, Other (lap dressings dry, rajeev bilious tinged) Labs Laboratory Tests Test 09/22/17 10:11 09/22/17 13:45 09/22/17 17:00 09/22/17 20:41 Glucose (Fingerstick) 280 mg/dL (70-99) 235 mg/dL (70-99) 210 mg/dL (70-99) 326 mg/dL (70-99) Test 09/23/17 03:35 09/23/17 07:25 09/23/17 11:06 09/23/17 20:15 White Blood Count 10.2 x10^3/uL (4.0-11.0) Red Blood Count 3.73 x10^6/uL (3.50-5.40) Hemoglobin 11.6 g/dL (12.0-15.5) Hematocrit 33.5 % (36.0-47.0) Mean Corpuscular Volume 90 fL (79-100) Mean Corpuscular Hemoglobin 31 pg (25-35) Mean Corpuscular Hemoglobin Concent 35 g/dL (31-37) Red Cell Distribution Width 13.6 % (11.5-14.5) Platelet Count 138 x10^3/uL (140-400) Neutrophils (%) (Auto) 88 % (31-73) Lymphocytes (%) (Auto) 2 % (24-48) Monocytes (%) (Auto) 10 % (0-9) Eosinophils (%) (Auto) 0 % (0-3) Basophils (%) (Auto) 0 % (0-3) Neutrophils # (Auto) 8.9 x10^3uL (1.8-7.7) Lymphocytes # (Auto) 0.2 x10^3/uL (1.0-4.8) Monocytes # (Auto) 1.0 x10^3/uL (0.0-1.1) Eosinophils # (Auto) 0.0 x10^3/uL (0.0-0.7) Basophils # (Auto) 0.0 x10^3/uL (0.0-0.2) Sodium Level 130 mmol/L (136-145) Potassium Level 4.1 mmol/L (3.5-5.1) Chloride Level 98 mmol/L (98-107) Carbon Dioxide Level 22 mmol/L (21-32) Anion Gap 10 (6-14) Blood Urea Nitrogen 28 mg/dL (7-20) Creatinine 1.1 mg/dL (0.6-1.0) Estimated GFR (Cockcroft-Gault) 51.4 Glucose Level 334 mg/dL (70-99) Calcium Level 8.6 mg/dL (8.5-10.1) Total Bilirubin 1.1 mg/dL (0.2-1.0) Direct Bilirubin 0.7 mg/dL (0.0-0.2) Aspartate Amino Transf (AST/SGOT) 31 U/L (15-37) Alanine Aminotransferase (ALT/SGPT) 35 U/L (14-59) Alkaline Phosphatase 123 U/L (46-116) Total Protein 5.6 g/dL (6.4-8.2) Albumin 1.8 g/dL (3.4-5.0) Thyroid Stimulating Hormone (TSH) 0.759 uIU/mL (0.358-3.74) Glucose (Fingerstick) 296 mg/dL (70-99) 296 mg/dL (70-99) 195 mg/dL (70-99) Test 09/24/17 03:15 09/24/17 07:49 Sodium Level 132 mmol/L (136-145) Potassium Level 3.8 mmol/L (3.5-5.1) Chloride Level 101 mmol/L (98-107) Carbon Dioxide Level 26 mmol/L (21-32) Anion Gap 5 (6-14) Blood Urea Nitrogen 31 mg/dL (7-20) Creatinine 1.0 mg/dL (0.6-1.0) Estimated GFR (Cockcroft-Gault) 57.4 Glucose Level 190 mg/dL (70-99) Calcium Level 8.7 mg/dL (8.5-10.1) Glucose (Fingerstick) 189 mg/dL (70-99) Laboratory Tests Test 09/23/17 11:06 09/23/17 20:15 09/24/17 03:15 09/24/17 07:49 Glucose (Fingerstick) 296 mg/dL (70-99) 195 mg/dL (70-99) 189 mg/dL (70-99) Sodium Level 132 mmol/L (136-145) Potassium Level 3.8 mmol/L (3.5-5.1) Chloride Level 101 mmol/L (98-107) Carbon Dioxide Level 26 mmol/L (21-32) Anion Gap 5 (6-14) Blood Urea Nitrogen 31 mg/dL (7-20) Creatinine 1.0 mg/dL (0.6-1.0) Estimated GFR (Cockcroft-Gault) 57.4 Glucose Level 190 mg/dL (70-99) Calcium Level 8.7 mg/dL (8.5-10.1) Problem List Problems Medical Problems: (1) Cholecystitis Status: Acute (2) Hyponatremia Status: Acute (3) Sepsis Status: Acute Assessment/Plan s/p robby work toward DC keep RAJEEV in place, FU 1 week with KAREN Bello MD 09/24/17 0931: SURGICAL PROGRESS NOTE Problem List Agree with above TRAVIS CARRERA APRN Sep 24, 2017 09:02 KAREN BAL MD Sep 24, 2017 09:31
[2017-09-24] MEDS ORDERED: OXYC1TAB7 PO (09:25)
[2017-09-24] MEDS ORDERED: AMOX1TAB61 PO (09:25)
[2017-09-24 09:39] LABS: ALBUMIN 1.7 g/dL (3.4-5.0); DIRECT BILIRUBIN 0.4 mg/dL (0.0-0.2); TOTAL BILIRUBIN 0.6 mg/dL (0.2-1.0); TOTAL PROTEIN 5.5 g/dL (6.4-8.2)
[2017-09-24] MEDS: oxyCODONE/APAP 5/325 1 TAB TABLET PO PRN (09:50)
[2017-09-24 11:00] VITALS: BP 104/65
--- NOTE | 2017-09-24 11:49 | PDOC ---
Renal-Progress Notes Subjective Notes Notes STABLE History of Present Illness Hx of present illness BETTER Vitals Vitals Vital Signs Date Time Temp Pulse Resp B/P (MAP) Pulse Ox O2 Delivery O2 Flow Rate FiO2 09/24/17 09:50 Room Air 09/24/17 08:16 60 112/78 09/24/17 07:00 98.0 16 98 98.0 09/24/17 03:00 2.0 Weight Weight [ ] I.O. Intake and Output Intake and Output 09/24/17 07:00 Intake Total 240 ml Output Total 885 ml Balance -645 ml Intake Oral 240 ml Output Urine Total 750 ml Drainage Total 135 ml # Voids 1 Labs Labs Laboratory Tests Test 09/23/17 20:15 09/24/17 03:15 09/24/17 07:49 Glucose (Fingerstick) 195 mg/dL (70-99) 189 mg/dL (70-99) Sodium Level 132 mmol/L (136-145) Potassium Level 3.8 mmol/L (3.5-5.1) Chloride Level 101 mmol/L (98-107) Carbon Dioxide Level 26 mmol/L (21-32) Anion Gap 5 (6-14) Blood Urea Nitrogen 31 mg/dL (7-20) Creatinine 1.0 mg/dL (0.6-1.0) Estimated GFR (Cockcroft-Gault) 57.4 Glucose Level 190 mg/dL (70-99) Calcium Level 8.7 mg/dL (8.5-10.1) Total Bilirubin 0.6 mg/dL (0.2-1.0) Direct Bilirubin 0.4 mg/dL (0.0-0.2) Aspartate Amino Transf (AST/SGOT) 51 U/L (15-37) Alanine Aminotransferase (ALT/SGPT) 43 U/L (14-59) Alkaline Phosphatase 118 U/L (46-116) Total Protein 5.5 g/dL (6.4-8.2) Albumin 1.7 g/dL (3.4-5.0) Micro Micro Microbiology 09/21/17 Blood Culture - Preliminary, Resulted NO GROWTH AFTER 2 DAYS Review of Systems Constitutional: yes: no symptom reported Ears/Nose/Throat: Yes: no symptom reported Eyes: Yes: no symptom reported Pulmonary: Yes no symptom reported Cardiovascular: Yes no symptom reported Gastrointestional: Yes: no symptom reported Genitourinary: Yes: no symptom reported Musculoskeletal: Yes: no symptom reported Skin: Yes no symptom reported Psychiatric/Neurological: Yes: no symptom reported Endocrine: Yes: no symptom reported Hematologic/Lymphatic: Yes: no symptom reported Physical Exam General Appearance: no apparent distress Respiratory: bilateral CTA Heart: S1S2 Abdomen: soft, bowel sounds present Extremities: pulses present, no edema Neurology: alert, oriented Assessment Assessment IMP NEAL-RESOLVED DEHYDRATION-RESOLVED LOW NA-BETTER PLAN OK TO D/C FROM RENAL STANDPOINT WILL SIGN OFF TERESSA LOZADA MD Sep 24, 2017 11:49
--- NOTE | 2017-09-24 11:52 | PDOC ---
Subjective: Subjective: Some RUQ soreness. Tolerating PO but not too hungry - full liquids not too appetizing. Passing gas, no stool. Hopeful to DC soon. Objective: Vital Signs: Vital Signs Date Time Temp Pulse Resp B/P (MAP) Pulse Ox O2 Delivery O2 Flow Rate FiO2 09/24/17 09:50 Room Air 09/24/17 08:16 60 112/78 09/24/17 07:00 98.0 16 98 98.0 09/24/17 03:00 2.0 Labs: Laboratory Tests Test 09/23/17 20:15 09/24/17 03:15 09/24/17 07:49 Glucose (Fingerstick) 195 mg/dL 189 mg/dL Sodium Level 132 mmol/L Potassium Level 3.8 mmol/L Chloride Level 101 mmol/L Carbon Dioxide Level 26 mmol/L Anion Gap 5 Blood Urea Nitrogen 31 mg/dL Creatinine 1.0 mg/dL Estimated GFR (Cockcroft-Gault) 57.4 Glucose Level 190 mg/dL Calcium Level 8.7 mg/dL Total Bilirubin 0.6 mg/dL Direct Bilirubin 0.4 mg/dL Aspartate Amino Transf (AST/SGOT) 51 U/L Alanine Aminotransferase (ALT/SGPT) 43 U/L Alkaline Phosphatase 118 U/L Total Protein 5.5 g/dL Albumin 1.7 g/dL PE: GEN: NAD LUNGS: CTAB HEART: RRR ABD: ice pack to RUQ NEURO/PSYCH: A & O 3 A/P: S/p cholecystectomy Elevated LFTs - bili now WNL -- DC per surgery. MATTHEW PACHECO Sep 24, 2017 11:52
--- NOTE | 2017-09-24 12:32 | PDOC3 ---
Discharge Summary Visit Information Date of Admission: Sep 21, 2017 Date of Discharge: Sep 24, 2017 Admitting Diagnosis Comment: s/post cholecystectomy, laparoscopically-09/22/17 NEAL, VMN Hyponatremia HTN controlled DM 2 controlled Final Diagnosis Problems Medical Problems: (1) Cholecystitis Status: Acute (2) Hyponatremia Status: Acute (3) Sepsis Status: Acute Brief Hospital Course Allergies Allergies Coded Allergies Type Severity Reaction Last Updated Verified Penicillins Allergy Unknown 09/22/17 Yes Vital Signs Vital Signs Date Time Temp Pulse Resp B/P (MAP) Pulse Ox O2 Delivery O2 Flow Rate FiO2 09/24/17 10:50 Room Air 09/24/17 08:16 60 112/78 09/24/17 07:00 98.0 16 98 98.0 09/24/17 03:00 2.0 Lab Results Laboratory Tests Test 09/22/17 13:45 09/22/17 17:00 09/22/17 20:41 09/23/17 03:35 Glucose (Fingerstick) 235 mg/dL (70-99) 210 mg/dL (70-99) 326 mg/dL (70-99) White Blood Count 10.2 x10^3/uL (4.0-11.0) Red Blood Count 3.73 x10^6/uL (3.50-5.40) Hemoglobin 11.6 g/dL (12.0-15.5) Hematocrit 33.5 % (36.0-47.0) Mean Corpuscular Volume 90 fL (79-100) Mean Corpuscular Hemoglobin 31 pg (25-35) Mean Corpuscular Hemoglobin Concent 35 g/dL (31-37) Red Cell Distribution Width 13.6 % (11.5-14.5) Platelet Count 138 x10^3/uL (140-400) Neutrophils (%) (Auto) 88 % (31-73) Lymphocytes (%) (Auto) 2 % (24-48) Monocytes (%) (Auto) 10 % (0-9) Eosinophils (%) (Auto) 0 % (0-3) Basophils (%) (Auto) 0 % (0-3) Neutrophils # (Auto) 8.9 x10^3uL (1.8-7.7) Lymphocytes # (Auto) 0.2 x10^3/uL (1.0-4.8) Monocytes # (Auto) 1.0 x10^3/uL (0.0-1.1) Eosinophils # (Auto) 0.0 x10^3/uL (0.0-0.7) Basophils # (Auto) 0.0 x10^3/uL (0.0-0.2) Sodium Level 130 mmol/L (136-145) Potassium Level 4.1 mmol/L (3.5-5.1) Chloride Level 98 mmol/L (98-107) Carbon Dioxide Level 22 mmol/L (21-32) Anion Gap 10 (6-14) Blood Urea Nitrogen 28 mg/dL (7-20) Creatinine 1.1 mg/dL (0.6-1.0) Estimated GFR (Cockcroft-Gault) 51.4 Glucose Level 334 mg/dL (70-99) Calcium Level 8.6 mg/dL (8.5-10.1) Total Bilirubin 1.1 mg/dL (0.2-1.0) Direct Bilirubin 0.7 mg/dL (0.0-0.2) Aspartate Amino Transf (AST/SGOT) 31 U/L (15-37) Alanine Aminotransferase (ALT/SGPT) 35 U/L (14-59) Alkaline Phosphatase 123 U/L (46-116) Total Protein 5.6 g/dL (6.4-8.2) Albumin 1.8 g/dL (3.4-5.0) Thyroid Stimulating Hormone (TSH) 0.759 uIU/mL (0.358-3.74) Test 09/23/17 07:25 09/23/17 11:06 09/23/17 20:15 09/24/17 03:15 Glucose (Fingerstick) 296 mg/dL (70-99) 296 mg/dL (70-99) 195 mg/dL (70-99) Sodium Level 132 mmol/L (136-145) Potassium Level 3.8 mmol/L (3.5-5.1) Chloride Level 101 mmol/L (98-107) Carbon Dioxide Level 26 mmol/L (21-32) Anion Gap 5 (6-14) Blood Urea Nitrogen 31 mg/dL (7-20) Creatinine 1.0 mg/dL (0.6-1.0) Estimated GFR (Cockcroft-Gault) 57.4 Glucose Level 190 mg/dL (70-99) Calcium Level 8.7 mg/dL (8.5-10.1) Total Bilirubin 0.6 mg/dL (0.2-1.0) Direct Bilirubin 0.4 mg/dL (0.0-0.2) Aspartate Amino Transf (AST/SGOT) 51 U/L (15-37) Alanine Aminotransferase (ALT/SGPT) 43 U/L (14-59) Alkaline Phosphatase 118 U/L (46-116) Total Protein 5.5 g/dL (6.4-8.2) Albumin 1.7 g/dL (3.4-5.0) Test 09/24/17 07:49 09/24/17 11:55 Glucose (Fingerstick) 189 mg/dL (70-99) 217 mg/dL (70-99) Laboratory Tests Test 09/23/17 20:15 09/24/17 03:15 09/24/17 07:49 09/24/17 11:55 Glucose (Fingerstick) 195 mg/dL (70-99) 189 mg/dL (70-99) 217 mg/dL (70-99) Sodium Level 132 mmol/L (136-145) Potassium Level 3.8 mmol/L (3.5-5.1) Chloride Level 101 mmol/L (98-107) Carbon Dioxide Level 26 mmol/L (21-32) Anion Gap 5 (6-14) Blood Urea Nitrogen 31 mg/dL (7-20) Creatinine 1.0 mg/dL (0.6-1.0) Estimated GFR (Cockcroft-Gault) 57.4 Glucose Level 190 mg/dL (70-99) Calcium Level 8.7 mg/dL (8.5-10.1) Total Bilirubin 0.6 mg/dL (0.2-1.0) Direct Bilirubin 0.4 mg/dL (0.0-0.2) Aspartate Amino Transf (AST/SGOT) 51 U/L (15-37) Alanine Aminotransferase (ALT/SGPT) 43 U/L (14-59) Alkaline Phosphatase 118 U/L (46-116) Total Protein 5.5 g/dL (6.4-8.2) Albumin 1.7 g/dL (3.4-5.0) Brief Hospital Course Ms. Etienne is a 56 old pleasant female admitted for symptomatically cholelithiasis, underwent lap cholecystectomy. Some hyponatremia that resolved with IV fluids. Postop doing well, to go home with indwelling RYAN drain, follow- up one week with Dr. Mooney Pain meds and by mouth Augmentin on chart. Was getting IV Zosyn here, nontoxic- appearing Patient seen and examined Discharge time less than 30 minutes Discussed with RN and patient Discharge Information Condition at Discharge: Improved, Stable Follow Up: Weeks (1 week GS) Disposition/Orders: D/C to Home Scheduled Amoxicillin/Potassium Clav (Augmentin 875-125 Tablet) 1 Each Tablet, 1 TAB PO BID, #14 Prescribed by: Sherrie Canada on 09/24/17 09 Carvedilol (Carvedilol) 3.125 Mg Tablet, 1 TAB PO BID, #60 Ref 3 (Reported) for HTN Entered as Reported by: DAWIT FONG on 09/21/171830 Last Taken: Unknown Dose on 09/20/17 1700 Last Action: Continued on 1442 by BRUCE DASILVA MD Escitalopram Oxalate (Lexapro) 20 Mg Tablet, 1 TAB PO DAILY, #90 Ref 3 (Reported ) Entered as Reported by: DAWIT FONG on 09/21/171830 Last Taken: Unknown Dose on 09/20/17899 Last Action: Converted on 1442 by BRUCE DASILVA MD Multivitamin (Multivitamins) 1 Each Tablet, 1 TAB PO DAILY, #90 Ref 3 (Reported) Entered as Reported by: DAWIT FONG on 09/21/171830 Last Taken: Unknown Dose on 09/20/17 09 Last Action: HELD on 09/22/171442 by BRUCE DASILVA MD Spironolactone (Spironolactone) 50 Mg Tablet, 1 TAB PO DAILY, #30 Ref 5 ( Reported) Entered as Reported by: DAWIT FONG on 09/21/171830 Last Taken: Unknown Dose on 09/20/17 Last Action: Converted on 09/22/171442 by BRUCE DASILVA MD Scheduled PRN Oxycodone Hcl/Acetaminophen (Oxycodone-Acetaminophen 5-325) 1 Each Tablet, 1 TAB PO PRN Q4HRS PRN for MODERATE PAIN, #30 Ref 0 Prescribed by: Sherrie Canada on 09/24/17 0925 ARLINE LINO MD Sep 24, 2017 12:32
--- NOTE | 2017-09-25 16:09 | PATHOLOGY ---
[facility] Accession Number: [id number] . 01 Material submitted: . GALLBLADDER AND CONTENTS . 01 Clinical history: . Cholecystitis . 02 Diagnosis: Gallbladder, laparoscopic cholecystectomy: - Cholelithiasis. - Acute gangrenous and chronic cholecystitis. - Reactive changes of pericystic duct lymph node. (JPM:shanel; 09/25/2017) QMS/09/25/2017 . 02 Comment: There is no evidence of malignancy. . 02 Electronically signed: . Phuc Doyle MD, Pathologist NPI- [id number] . 01 Gross description: . The specimen is received in formalin, labeled "Felich, Karen and gallbladder with contents", is a collapsed, fibrotic and necrotic gallbladder measuring 15 x 6.5 x 4.5 cm. The serosa is blount-brown with the hepatic aspect inked black. A blount-rubbery lymph node is present measuring 1.5 x 0.8 x 0.7 cm with a blount homogeneous cut surface. Opening the gallbladder reveal the lumen filled with minimal bile and multiple multifaceted to irregular, brown-black calculi admixed with gravel measuring 7.0 x 6.5 x 1.7 cm. The mucosa is red-black and denuded. The gallbladder wall is fibrous and is up to 1.4 cm thick. Mail Room Clerk sections are submitted as follows: A1. Cystic duct margin and neck A2. Serosa to mucosa A3. Hepatic surface to mucosa A4. Lymph node (SWS; 09/23/2017) SHS/SHS . 02 Pathologist provided ICD-10: K80.12 . 02 CPT . 390935 Performed at: [address], [place], [place] [id number] MD Alphonse Levin MD Phone: [phone] Performed at: 02 [facility] [address] [place] [id number] MD Phuc Doyle MD Phone: [phone]
== END 2017-09-24 14:39 | disposition home or self-care (01) | DRG 853 ==
LOC: ER 13:09 → 5 NORTH 15:43 → 4 NORTH 16:34
PROVIDERS: ADMIT Internal Medicine; ATTEND Internal Medicine
PROC: BF141ZZ Fluoroscopy of Gallbladder, Bile Ducts and Pancreatic Ducts using Low Osmolar Contrast (ICD-10-PCS; 2017-09-22)
PROC: 0FT44ZZ Resection of Gallbladder, Percutaneous Endoscopic Approach (ICD-10-PCS; principal; 2017-09-22 10:00)
DX: A41.9 Sepsis, unspecified organism (principal); N17.0 Acute kidney failure with tubular necrosis; K80.00 Calculus of gallbladder with acute cholecystitis without obstruction; E87.1 Hypo-osmolality and hyponatremia; K83.0 Cholangitis; E44.0 Moderate protein-calorie malnutrition; I10 Essential (primary) hypertension; E11.9 Type 2 diabetes mellitus without complications; K82.8 Other specified diseases of gallbladder; E86.0 Dehydration; E66.01 Morbid (severe) obesity due to excess calories; Z98.84 Bariatric surgery status; Z88.0 Allergy status to penicillin; Z68.38 Body mass index [BMI] 38.0-38.9, adult
CPT/HCPCS: 36415; 74177; 74300; 80048; 80053; 80076; 80307; 81001; 82248; 82962; 83036; 83605; 83690; 84443; 85007; 85025; 87040; 96361; 96365; 96375; A7015; C9113; G0480; J0780; J1100; J1815; J1885; J2001; J2250; J2270; J2370; J2405; J2543; J2704; J2710; J3010; J3370; J3490; J7030; J7040; J7120; Q9967; S0028; 99285-25; G0479